=== PATIENT | male | born 1940 | race Caucasian/White ===

== ENCOUNTER 2018-01-10 17:33 | Inpatient (IN) | payer BC, OTHER ==
[~2018-01-10] VITALS: Ht 180.3 cm; Wt 124.1 kg
[~2018-01-10 17:33] MED LIST: ACET-1311 PO; ATOR-22 PO; BISA10SU5 PR; CARV25TA2 PO; CLOP1TAB15 PO; CPR500 PO; DOCU-94 PO; ERGO1CAP35 PO; HPRIS5M SQ; LACT10SO30 PO; LCTS240 PO; LEVO50TA6 PO; MAGNSUS PO; NYST1POW7 TOP; PANT40TA PO; POLY335019 PO; SENN-65 PO; SODIENE PR; TAMS0.4C59 PO; XPNIN INH
[2018-01-10] MEDS ORDERED: OXYCODONE HCL IR 5 MG TAB (IMMEDIATE RELEASE) PO STA (17:57)
--- NOTE | 2018-01-10 19:09 | DIAGNOSTIC IMAGING REPORT ---
CHEST ONE VIEW PORTABLE CLINICAL HISTORY: fall trauma COMPARISON STUDY: 06/24/2015 FINDINGS: Mild stable cardiomegaly. Lungs are clear. Diaphragms are smooth. IMPRESSION: No acute process. The above report was generated using voice recognition software. It may contain grammatical, syntax or spelling errors. Electronically signed by: Pola Lira M.D. 01/10/2018 7:08 PM Dictated Date/Time: 01/10/2018 7:07 PM
--- NOTE | 2018-01-10 19:12 | DIAGNOSTIC IMAGING REPORT ---
L PELVIS/UNILATERAL HIP 2-3VIEWS CLINICAL HISTORY: fall trauma COMPARISON: None. DISCUSSION: Pre-existing right hip arthroplasty. Fracture left femoral neck. Slice appear migration left femoral shaft. No evidence for dislocation or acetabular protrusion. Diminished bone mineralization consistent with osteopenia. There is no evidence for soft tissue swelling. IMPRESSION: Fracture left femoral neck. Osteopenia. Pre-existing total right hip arthroplasty. The above report was generated using voice recognition software. It may contain grammatical, syntax or spelling errors. Electronically signed by: Pola Lira M.D. 01/10/2018 7:10 PM Dictated Date/Time: 01/10/2018 7:08 PM
[2018-01-10] MEDS ORDERED: SOD PHOSPHATE/SOD BIPHOSPHATE ENEMA 132 ML BTL PR PRN ×2 (19:45→20:45)
[2018-01-10] MEDS ORDERED: POLYETHYLENE (MIRALAX) 17 GM PACK PO PRN ×2 (19:45→20:45)
[2018-01-10] MEDS ORDERED: NALOXONE HCL 0.4 MG/1 ML VIAL/CARP IV PRN ×2 (19:45→20:45)
[2018-01-10] MEDS ORDERED: MAGNESIUM HYDROXIDE SUSP 30 ML UDC PO PRN ×2 (19:45→20:45)
[2018-01-10] MEDS ORDERED: BISACODYL 10 MG SUPP PR PRN ×2 (19:45→20:45)
[2018-01-10] MEDS ORDERED: LEValbuterol HFA 15GM INHALER INH PRN (20:00)
[2018-01-10] MEDS ORDERED: HYDROmorphone INJ 0.5 MG/0.5 ML SYR IV PRN ×2 (20:00)
[2018-01-10] MEDS ORDERED: POLY99.0 OPB (20:03)
[2018-01-10] MEDS ORDERED: ASPCH81X PO (20:03)
[2018-01-10] MEDS ORDERED: AMOX500C3 PO (20:03)
--- NOTE | 2018-01-10 20:08 | History and Physical ---
History & Physical Date & Time of Service: Jan 10, 2018 at 20:01 Chief Complaint: Groin Pain Primary Care Physician: Ranjit Baird D.O. History of Present Illness 77 year old from [facility] ([place]) who had a mechanical fall, slipping on the floor, landing on his hip without trauma to the head of loss of consciousness, and found to have Fracture left femoral neck. Patient in the ED is accompanied by his daughter who is a nurse at [facility] who corroborates information from his health history. In the ED patient is verbal and alert and cooperative with physical exam instructions but is not a good historian in regards to his health history. PMH is significant for history of strokes in the past and on dual antiplatelets of aspirin and plavix. Outpatient records with history of atrial fibrillation but patient is not on anticoagulants Past Medical/Surgical History Medical Problems: (1) Anemia (2) Cirrhosis of liver (3) COPD (chronic obstructive pulmonary disease) (4) CVA (cerebral infarction) (5) Dehydration (6) Encephalopathy (7) Fever (8) Fracture of femoral neck, left (9) Hip fracture (10) Hypoxia (11) Leukocytosis (12) Renal failure (13) Right Femoral neck fracture (14) Right Hip fracture (15) Severe sepsis with acute organ dysfunction (16) SIRS (systemic inflammatory response syndrome) (17) UTI (urinary tract infection) Family History Hypertension Kidney disease Social History Smoking Status: Former Smoker Drug Use: none Marital Status: Housing status: assisted living Occupational Status: retired Immunizations History of Influenza Vaccine: Yes Influenza Vaccine Date: Jul 26, 2010 History of Tetanus Vaccine?: Unknown History of Pneumococcal: Yes Pneumococcal Date: Jan 11, 2011 History of Hepatitis B Vaccine: Unknown Allergies Coded Allergies: No Known Allergies (Verified , 01/10/18) Home Medications Scheduled Amoxicillin (Amoxil), 4 CAP PO UD Aspirin (Aspirin Chewable), 81 MG PO DAILY Atorvastatin (Lipitor), 20 MG PO DAILY Carvedilol (Coreg), 25 MG PO BID Clopidogrel (Plavix), 75 MG PO DAILY Duloxetine HCl (Cymbalta), 1 CAP PO DAILY Ergocalciferol (Vitamin D Cap), 50,000 INTER.UNIT PO WK Levothyroxine Sodium (Levothyroxine Sodium), 50 MCG PO DAILY Nystatin (Topical) (Nystatin), 1 APPLN TOP BID Omeprazole (Prilosec), 20 MG PO BID Tamsulosin Hcl (Flomax), 0.4 MG PO HS Triamcinolone Acet (Aristocort 0.1%), 1 APPLN TOP BID Scheduled PRN Acetaminophen (Tylenol), 650 MG PO Q4 PRN for Mild Pain Guaifenesin La (Guaifenesin Er), 600 MG PO Q12H PRN for CONGESTION Hydrocodone/Acetaminophen 5MG/325MG ([place] 5MG/325MG), 1 TABLET PO Q4H PRN for Pain Menthol-Zinc Oxide (Risamine), 1 APPLN TOP BID PRN for TOPICAL CARE Polyvinyl Alcohol (Artificial Tears), 2 DROPS OPB UD PRN for DRYNESS Review of Systems Constitutional: No fever, No chills Eyes: No worsening of vision, No eye pain, No diplopia ENT: No hearing loss, No nasal symptoms, No trouble swallowing Respiratory: No cough, No sputum, No wheezing, No shortness of breath Cardiovascular: No chest pain, No edema, No palpitations Abdomen: No pain, No nausea, No vomiting, No diarrhea, No constipation Musculoskeletal: + problem reported (left hip pain is controlled), No swelling , No calf pain Genitourinary - Male: No dysuria Neurologic: No numbness/tingling Endocrine: No fatigue Hematologic / Lymphatic: No abnormal bleeding/bruising Integumentary: No rash, No itch Physical Exam Vital Signs Date Time Temp Pulse Resp B/P (MAP) Pulse Ox O2 Delivery O2 Flow Rate FiO2 01/10/18 19:39 107 18 140/106 95 Room Air 01/10/18 18:14 84 22 151/121 96 Nasal Cannula 2.0 01/10/18 17:44 97 Nasal Cannula 4.0 01/10/18 17:44 83 01/10/18 17:40 36.4 91 22 173/122 84 Room Air General Appearance: no apparent distress, + obese Head: normocephalic, atraumatic Eyes: normal inspection, EOMI, sclerae normal ENT: normal ENT inspection, hearing grossly normal, pharynx normal Neck: supple, no JVD, trachea midline Respiratory/Chest: chest non-tender, lungs clear, normal breath sounds, no respiratory distress, no accessory muscle use Cardiovascular: regular rate, rhythm, no edema, no JVD, normal peripheral pulses Abdomen/GI: normal bowel sounds, non tender, soft, no organomegaly, no pulsatile mass Back: + pertinent finding (could not perform physical exam of the back as patient had hip pain) Extremities/Musculoskelatal: normal inspection, no calf tenderness, no pedal edema, + pertinent finding (patient could not life eitehr leg due to left hip pain, normal ankle dorsiflexion/extension, toe movements) Neurologic/Psych: alert, normal mood/affect Skin: normal color, warm/dry, no rash Diagnostics Laboratory Results Results Past 24 Hours Test 01/10/18 19:03 Range/Units CXR normal (Mild stable cardiomegaly. Lungs are clear. Diaphragms are smooth. ) Impression Assessment and Plan Osteopenic left femoral neck fracture secondary to mechanical fall -HIP X ray: Pre-existing right hip arthroplasty. Fracture left femoral neck. Slice appear migration left femoral shaft. No evidence for dislocation or acetabular protrusion. Diminished bone mineralization consistent with osteopenia. There is no evidence for soft tissue swelling. -orthopedic service: Dr. Bishop asked to evaluate the patient -anesthesia consult placed -NPO except meds/ice chips/sips after midnight if patient is to go to operating room tomorrow -hold home medication of aspirin and Plavix for now -DVT ppx with SCDs -IV fluids as D5 1/2 NS while patient NPO -Pain control medications -Bowel regimen to prevent narcotic induced ileus -preop antibiotics ordered History of strokes in the past -as per patient's daughter, patient has generalized lower extremity weakness -no slurred speech, no upper motor deficits, lower extremity physical exam limited by left hip pain, ankle flexion/extension and toe movements intact -has been on aspirin and Plavix, will hold prior to surgery -continue Lipitor Last available echocardiogram results in outpatient records from October 2014 ejection Fraction = 56% (bi-plane method of discs). Grade I diastolic dysfunction. No significant valvular pathology. Mild left atrial enlargement History of reported atrial fibrillation -on physical exam, hear rate is rate controlled and appeared to be in regular rhythm -obtain EKGs -continue home medication of carvedilol History of Hypothyroidism -continue home dose Levothyroxine 50 mcg daily -check TSH and T4 History of CKD stage 3; -IV fluids, trend GFR History of Alcoholic cirrhosis of liver -trend LFTs : continue tamsulosin History of Vascular dementia -monitor mental status Obesity PARDEEP: CPAP as tolerated DVT ppx: SCD Full Code daughter [phone] is a nurse at [facility] Resuscitation Status VTE Prophylaxis Will order VTE Prophylaxis: Yes
--- NOTE | 2018-01-10 20:14 | EMERGENCY ROOM VISIT NOTE ---
History Report prepared by Mario: Diana Batres Under the Supervision of: Dr. Willie Dudley D.O. First contact with patient: 17:51 Chief Complaint: GROIN PAIN Stated Complaint: GROIN PAIN History of Present Illness The patient is a 77 year old male who presents to the Emergency Room with complaints of persistent groin pain starting 1 hour ago. The patient resides at [facility]. His daughter received a call today around 1645 informing her that the patient had fallen. He reports left groin pain since the fall. The pain worsens with movement. He denies any head injury or LOC. He denies any abdominal pain, neck pain, or leg pain. He has a history of hip replacement. He has not had any other falls recently. He is on Plavix. Source of History: patient, family Onset: 1 hour ago Position: other (left groin) Symptom Intensity: 6/10 Quality: other (fall, pain) Timing: other (persistent) Modifying Factors (Worsening): movement Associated Symptoms: No LOC, No headache, No neck pain, No abdominal pain Review of Systems See HPI for pertinent positives & negatives. A total of 10 systems reviewed and were otherwise negative. Past Medical & Surgical Medical Problems: (1) Cirrhosis of liver (2) COPD (chronic obstructive pulmonary disease) (3) CVA (cerebral infarction) (4) Fracture of femoral neck, left Family History Hypertension Kidney disease Social History Smoking Status: Former Smoker Alcohol Use: none Drug Use: none Marital Status: Housing Status: fdc Occupation Status: retired Current/Historical Medications Scheduled Amoxicillin (Amoxil), 4 CAP PO UD Aspirin (Aspirin Chewable), 81 MG PO DAILY Atorvastatin (Lipitor), 20 MG PO DAILY Carvedilol (Coreg), 25 MG PO BID Clopidogrel (Plavix), 75 MG PO DAILY Duloxetine HCl (Cymbalta), 1 CAP PO DAILY Ergocalciferol (Vitamin D Cap), 50,000 INTER.UNIT PO WK Levothyroxine Sodium (Levothyroxine Sodium), 50 MCG PO DAILY Nystatin (Topical) (Nystatin), 1 APPLN TOP BID Omeprazole (Prilosec), 20 MG PO BID Tamsulosin Hcl (Flomax), 0.4 MG PO HS Triamcinolone Acet (Aristocort 0.1%), 1 APPLN TOP BID Scheduled PRN Acetaminophen (Tylenol), 650 MG PO Q4 PRN for Mild Pain Guaifenesin La (Guaifenesin Er), 600 MG PO Q12H PRN for CONGESTION Hydrocodone/Acetaminophen 5MG/325MG ([place] 5MG/325MG), 1 TABLET PO Q4H PRN for Pain Menthol-Zinc Oxide (Risamine), 1 APPLN TOP BID PRN for TOPICAL CARE Polyvinyl Alcohol (Artificial Tears), 2 DROPS OPB UD PRN for DRYNESS Allergies Coded Allergies: No Known Allergies (Verified , 01/10/18) Physical Exam Vital Signs Date Time Temp Pulse Resp B/P (MAP) Pulse Ox O2 Delivery O2 Flow Rate FiO2 01/10/18 19:39 107 18 140/106 95 Room Air 01/10/18 18:14 84 22 151/121 96 Nasal Cannula 2.0 01/10/18 17:44 97 Nasal Cannula 4.0 01/10/18 17:44 83 01/10/18 17:40 36.4 91 22 173/122 84 Room Air Physical Exam GENERAL: Patient is awake, alert, and in no acute distress. Patient is resting comfortably and showing no signs of anxiety EYES: The conjunctivae are clear. The pupils are round and reactive. EARS, NOSE, MOUTH AND THROAT: The nose is without any evidence of any deformity. Mucous membranes are moist tongue is midline NECK: The neck is nontender and supple. RESPIRATORY: Diminished breath sounds noted throughout with scattered rhonchi. No tachypnea or conversational dyspnea. CARDIOVASCULAR: Regular rate and rhythm noted there no murmurs rubs or gallops normal S1 normal S2 GASTROINTESTINAL: The abdomen is soft. Bowel sounds are present in all quadrants. Abdomen is nontender BACK: No midline tenderness or or step-off noted range of motion in flexion extension as well as rotation no signs of muscle spasm noted MUSCULOSKELETAL/EXTREMITIES: No significant shortening of the LLE, but patient is having very significant pain with external rotation and palpation in the left groin. No tenderness in either lower extremity from the knee down. SKIN: There is pedal edema bilaterally. There is no obvious evidence of any rash. There are no petechiae, pallor or cyanosis noted. NEUROLOGIC: Patient is awake alert and oriented x3 Medical Decision & Procedures ER Provider Diagnostic Interpretation: X-ray results as stated below per interpretation by me and the radiologist. CHEST ONE VIEW PORTABLE CLINICAL HISTORY: fall trauma COMPARISON STUDY: 06/24/2015 FINDINGS: Mild stable cardiomegaly. Lungs are clear. Diaphragms are smooth. IMPRESSION: No acute process. The above report was generated using voice recognition software. It may contain grammatical, syntax or spelling errors. Electronically signed by: Pola Lira M.D. 01/10/2018 7:08 PM Dictated Date/Time: 01/10/2018 7:07 PM L PELVIS/UNILATERAL HIP 2-3VIEWS CLINICAL HISTORY: fall trauma COMPARISON: None. DISCUSSION: Pre-existing right hip arthroplasty. Fracture left femoral neck. Slice appear migration left femoral shaft. No evidence for dislocation or acetabular protrusion. Diminished bone mineralization consistent with osteopenia. There is no evidence for soft tissue swelling. IMPRESSION: Fracture left femoral neck. Osteopenia. Pre-existing total right hip arthroplasty. The above report was generated using voice recognition software. It may contain grammatical, syntax or spelling errors. Electronically signed by: Pola Lira M.D. 01/10/2018 7:10 PM Dictated Date/Time: 01/10/2018 7:08 PM Laboratory Results Laboratory results per my review. Medications Administered Medications (Trade) Dose Ordered Sig/Duke Route Start Time Stop Time Status Last Admin Dose Admin Oxycodone HCl (Roxicodone Immediate Rel Tab) 5 mg NOW STAT PO 01/10/18 17:57 01/10/18 17:59 DC 01/10/18 17:57 5 MG ECG Per My Interpretation Indication: other (fall) Rate (beats per minute): 115 Rhythm: atrial fibrillation Findings: ST depression (diffuse), other (no PVC, poor R wave progression) Comparison ECG Date: 24-Jun-2015 Change: Atrial fibrillation has replaced sinus rhythm. ED Course 1754: The patient was evaluated in room B7. A complete history and physical examination were performed. 1756: Oxycodone HCl 5 mg PO. 1904: Upon reevaluation, the patient is resting comfortably. I discussed results and treatment plan with him and his daughter. They verbalize agreement and understanding. The patient will be evaluated for further management and care. 1909: I discussed the patient's case with Dr. Muro, [facility] hospitalist. The patient will be evaluated for further management. Medical Decision Prior records reviewed and summarized above. Triage Nursing notes reviewed. Additional history obtained from family. Differential diagnosis: Etiologies such as fracture, dislocation, neurovascular compromise, compartment syndrome, soft tissue injury, as well as others were entertained. The patient is a 77-year-old male who presented to the emergency department for an evaluation of left hip pain. The patient had a fall from a standing position. X-rays revealed a subcapital left hip fracture. Hip order sets were placed. The patient was treated with pain medication in the emergency department. I discussed the patient's laboratory and radiographic studies with him and his daughter. I also [facility] They have agreed to evaluate the patient in the emergency department for further management and disposition. Head Trauma GCS Score: 15 Medication Reconcilliation Current Medication List: was personally reviewed by me Blood Pressure Screening Patient's blood pressure: Elevated blood pressure Blood pressure disposition: Elevated BP felt to be situational Consults Time Called: 1905 Consulting Phys[facility]: 1909 I discussed the patient's case with him. The patient will be evaluated for further management. Impression Primary Impression: Fall Additional Impression: Subcapital fracture of left hip Scribe Attestation The scribe's documentation has been prepared under my direction and personally reviewed by me in its entirety. I confirm that the note above accurately reflects all work, treatment, procedures, and medical decision making performed by me. Departure Information Dispostion Being Evaluated By Hospitalist Referrals No Doctor, Assigned (PCP) Patient Instructions My [facility] Problem Qualifiers Primary Impression: Fall Encounter type: initial encounter Qualified Codes: W19.XXXA - Unspecified fall, initial encounter Additional Impression: Subcapital fracture of left hip Encounter type: initial encounter Fracture type: closed Qualified Codes: S72.012A - Unspecified intracapsular fracture of left femur, initial encounter for closed fracture
[2018-01-10] MEDS ORDERED: GUAI1TAB75 PO (20:16)
[2018-01-10] MEDS ORDERED: PRLSR20 PO (20:16)
[2018-01-10] MEDS ORDERED: HYDR-5688 PO (20:16)
[2018-01-10] MEDS ORDERED: CYM/30 PO (20:16)
[2018-01-10] MEDS ORDERED: MENTOIN12 TOP (20:16)
[2018-01-10] MEDS ORDERED: TRMCR130WC TOP (20:16)
[2018-01-10] MEDS ORDERED: ONDANSETRON INJ 2 MG/ML 2 ML VIAL IV PRN (20:45)
[2018-01-10 21:00] VITALS: BP 171/110; PULSE 116; O2SAT 94; BMI 37.9
[2018-01-10] MEDS ORDERED: DOCUSATE SODIUM/SENNA 50/8.6MG TAB PO SCH (21:00)
--- NOTE | 2018-01-10 22:00 | HISTORY & PHYSICAL EXAMINATION ---
DATE OF ADMISSION: 01/10/2018 CHIEF COMPLAINT: Left hip pain. HISTORY OF PRESENT ILLNESS: A 77-year-old male admitted to the hospital after falling from standing height. He lives in [facility]. He notes that he fell late this afternoon. He has groin pain. He denies any head injury or loss of consciousness. He denies abdominal pain, neck pain or leg pain. He did have a right bipolar prosthesis placed several years ago. He has also had some partial knee replacements. He is chronically on Plavix. The patient is noted to have past history of significant alcohol use and has some issues related to that medically. SOURCE OF HISTORY: The patient and the family. REVIEW OF SYSTEMS: Reveals no chest pain, shortness of breath, fever, chills, nausea, vomiting or headache. He is awake and alert. He recognizes me from past social encounters. PAST MEDICAL AND PAST SURGICAL HISTORY: Remarkable for cirrhosis of the liver; COPD; CVA; femoral neck fracture, right, status post bipolar endoprosthesis; new onset femoral neck fracture, left. FAMILY HISTORY: Remarkable for hypertension and kidney disease. SOCIAL HISTORY: Reveals that he is a former smoker, has quit alcohol use. He is . He resides in [facility]. He is retired. PREADMISSION MEDICATIONS: Include amoxicillin p.r.n. basis, aspirin 81 mg daily, Lipitor 20 mg daily, Coreg 25 mg p.o. b.i.d., Plavix 75 mg daily, Cymbalta 1 capsule daily, vitamin D replacement, levothyroxine 50 mcg daily, Nystatin b.i.d. applied topically, Prilosec 20 mg b.i.d., Flomax 0.4 mg p.o. at bedtime, triamcinolone applied topically, Aristocort 0.1% b.i.d. p.r.n. P.r.n. medications include Tylenol, guaifenesin LA, hydrocodone/acetaminophen 5/325, Risamine, and polyvinyl alcohol artificial tears 2 drops p.r.n. for dryness. ALLERGIES: None. PERTINENT PHYSICAL EXAMINATION: Today reveals no head trauma. Eyes are intact. He can move his arms, neck and head well. He has no pain. He has no abdominal tenderness. Has no tenderness on the right lower extremity. Has a healed incision in the medial. Left has significant pain with movement of the hip. Has some minor swelling of the hip, has no significant shortening, has a well-healed incision medially. Neurovascular check bilaterally within normal limits for baseline. Pulses are trace. Skin is intact. He has some fungal nail changes. Chest x-ray results reveal some chronic changes. X-ray results of his hip and pelvis reveal femoral neck fracture, displaced, will require implant. Labs are pending. ASSESSMENT: Displaced femoral neck fracture, will require implant. Consent obtained in the presence of daughter. Questions at this point in time were answered. They had no other issues. Stated that the request originally was for another surgical group, but that I was operation agent, they stated that having me do the procedure was fine. I will make arrangements to do this MARY LOU tomorrow. He will be n.p.o. after midnight. Ancef 2 grams operation agent. Consent obtained and placed in the chart. Routine skin prep. MTDD
[2018-01-10] MEDS: TAMSULOSIN HCL 0.4 MG CAP PO SCH (22:15)
[2018-01-10] MEDS: DOCUSATE SODIUM/SENNA 50/8.6MG TAB PO SCH (22:15)
[2018-01-10] MEDS ORDERED: NURSING VERBAL MED ORDER ONE (22:15)
[2018-01-10] MEDS: CARVEDILOL 25 MG TAB PO SCH (22:15)
[2018-01-10] MEDS ORDERED: D5W AND 1/2NSS 1,000 ML IV SCH (22:30)
[2018-01-10 22:36] LABS: BASO % 0.1 %; BASO ABS # 0.01 K/uL (0-0.2); EOS % 0.1 %; EOS ABS # 0.02 K/uL (0-0.5); HEMATOCRIT 44.1 % (42-52); HEMOGLOBIN 15.7 g/dL (14.0-18.0); IG# 0.07 K/uL (0.00-0.02); LYMPH % 3.3 %; LYMPH ABS # 0.48 K/uL (1.2-3.4); MEAN CELL VOLUME 78.6 fL (80-100); MEAN PLATELET VOLUME 9.6 fL (7.4-10.4); MONO % 4.7 %; MONO ABS # 0.68 K/uL (0.11-0.59); NEUT % 91.3 %; PLATELET COUNT 147 K/uL (130-400); RED CELL DISTRIBUTION WIDTH CV 14.1 % (11.5-14.5); RED CELL DISTRIBUTION WIDTH SD 39.7 fL (36.4-46.3); WHITE BLOOD COUNT 14.36 K/uL (4.8-10.8)
[2018-01-10 22:39] VITALS: BP 132/94; PULSE 122; TEMP 36.4; O2SAT 96
[2018-01-10 22:44] LABS: PTT PATIENT 28.7 SECONDS (21.0-31.0)
[2018-01-10 22:56] LABS: MEAN CORPUSCULAR HGB CONC 35.6 g/dl (32-36)
[2018-01-10 23:07] LABS: ALBUMIN 3.5 gm/dl (3.4-5.0); ALKALINE PHOSPHATASE 86 U/L (45-117); ALT/SGPT 17 U/L (12-78); AST/SGOT 14 U/L (15-37); BLOOD UREA NITROGEN 18 mg/dl (7-18); CALCIUM 7.9 mg/dl (8.5-10.1); CARBON DIOXIDE 29 mmol/L (21-32); CREATININE 1.44 mg/dl (0.60-1.40); GLUCOSE 143 mg/dl (70-99); POTASSIUM 3.7 mmol/L (3.5-5.1); SODIUM 134 mmol/L (136-145); TOTAL PROTEIN 7.5 gm/dl (6.4-8.2)
[2018-01-10] MEDS ORDERED: METOPROLOL TARTRATE 1 MG/ML VIAL IV STA (23:58)
[2018-01-11] VITALS (15 sets, daily range): BP systolic 99–143; BP diastolic 71–94; PULSE 79–123; TEMP 36.3–36.8; O2SAT 92–96; Ht 180.3 cm; Wt 124.1 kg
[2018-01-11] MEDS ORDERED: METOPROLOL TARTRATE 1 MG/ML VIAL IV STA (01:38)
[2018-01-11] MEDS ORDERED: SODIUM CHLORIDE 0.9% 500ML 500 ML IV ONE (04:30)
--- NOTE | 2018-01-11 05:34 | DIAGNOSTIC IMAGING REPORT ---
VENOUS DOPPLER LWR EXT BILA CLINICAL HISTORY: 77 years-old Male presenting with R/O DVT, fall, left hip pain. TECHNIQUE: Real-time grayscale and color and spectral Doppler ultrasound imaging of the veins of the bilateral lower extremities was performed. Compression and augmentation were also utilized. COMPARISON: 12/24/2010. FINDINGS: Right: Common femoral vein: Patent. Greater saphenous vein: Patent. Deep femoral vein: Patent. Femoral vein: Patent. Popliteal vein: Patent. Calf veins: Limited visualization. Left: Common femoral vein: Patent. Greater saphenous vein: Patent. Deep femoral vein: Patent. Femoral vein: Patent. Popliteal vein: Patent. Calf veins: Limited visualization. Other: None. IMPRESSION: No evidence of deep venous thrombosis. Electronically signed by: Woody Canales M.D. 01/11/2018 5:33 AM Dictated Date/Time: 01/11/2018 5:32 AM
[2018-01-11] MEDS: LEVOTHYROXINE 50 MCG TAB PO SCH (05:48)
[2018-01-11] MEDS ORDERED: LEVOTHYROXINE 50 MCG TAB PO SCH (06:00)
[2018-01-11] MEDS ORDERED: CEFAZOLIN SOD 3000MG/22.5 ML IV PUSH IV SCH (06:00)
[2018-01-11] MEDS ORDERED: VANCOMYCIN 1GM ED/ASU OMNICELL 270 ML IV STA (07:43)
[2018-01-11] MEDS ORDERED: VANCOMYCIN CONSULT ACTIVE PRN (07:45)
--- NOTE | 2018-01-11 07:56 | PROGRESS NOTE ---
DATE: 01/11/2018 The patient is sitting up in bed. Denies chest pain, shortness of breath, fever, chills, nausea, vomiting or headache. Of main note is that he went into atrial fibrillation with a relatively rapid heart rate last night. Despite that he is asymptomatic. Vital signs are stable. Pulse is in the 110-115 range. Laboratory work this morning is pending; however, everything was good yesterday. He has an echo being performed this morning and will need cardiac clearance to allow us to proceed with surgery. The patient was informed that procedure at this point in time is pending clearance of cardiology. I have paged out to Dr. Juan Santos, he will evaluate the patient. CHRISD
[2018-01-11] MEDS: CARVEDILOL 25 MG TAB PO SCH ×2 (08:10→21:25)
[2018-01-11] MEDS: ATORVASTATIN 20 MG TAB PO SCH (08:10)
[2018-01-11] MEDS: PANTOprazole SOD 40 MG TAB PO SCH (08:11)
--- NOTE | 2018-01-11 08:32 | ECHOCARDIOGRAM REPORT ---
*NOTICE TO RECEIVING CONSTITUTION PARTY AGENCY This information is strictly Confidential and protected under [place] law. [place] law prohibits you from making any further disclosure of this information unless further disclosure is expressly permitted by the written consent of the person to whom it pertains or is authorized by law. A general authorization for the release of medical or other information is not sufficient for this purpose. Hospital accepts no responsibility if the information is made available to any other person, INCLUDING THE PATIENT. Interpretation Summary * Name: EBENEZER TOUSSAINT Study Date: 01/11/2018 06:52 AM BP: 131/88 mmHg * Patient Location: C.2T\S\S241\S\1 HR: 112 * : 1940 (M/d/yy) Gender: Male Height: 71 in * Age: 77 yrs Ethnicity: CA Weight: 272 lb * Ordering Physician: Peña Muro * Referring Physician: Peña Muro * Performed By: Kevin Macedo RDCS * * Reason For Study: Accelerated junctional rhythm * BSA: 2.4 m2 * -- Conclusions -- * The left ventricular cavity is small. * There is moderate concentric left ventricular hypertrophy. * No regional wall motion abnormalities noted. * Ejection Fraction = 65-70%. * The study was technically difficult. * The left atrium is moderately dilated. * There is no significant valvular disease Procedure Details * A complete two-dimensional transthoracic echocardiogram was performed (2D, M-mode, Doppler and color flow Doppler). * The study was technically limited. * The study was technically difficult. * There were technical limitations due to patient'spoor positioning * A contrast injection of Definity was performed to improve assessment of LV function. * Contrast was injected into an intravenous site in the right arm. * One vial of Definity ultrasound contrast was diluted in normal saline to a total volume of 10 ml. A total of '2' ml of solution was administered during imaging. * Lot # [id number] of Definity utilized for procedure. * Expiration date 1APR19. * The attending nurse who injected the contrast agent was ARMAND Thomas. Left Ventricle * The left ventricular cavity is small. * There is moderate concentric left ventricular hypertrophy. * Ejection Fraction = 65-70%. * No regional wall motion abnormalities noted. Right Ventricle * The right ventricle is normal in size and function. Atria * The left atrium is moderately dilated. * Right atrial size is normal. * No ASD detected; PFO is not assessed. Mitral Valve * The mitral valve is grossly normal. * There is no mitral valve stenosis. * There is trace mitral regurgitation. Tricuspid Valve * The tricuspid valve is not well visualized, but is grossly normal. * There is no tricuspid stenosis. * There is trace tricuspid regurgitation. Aortic Valve * The aortic valve is trileaflet. * No hemodynamically significant valvular aortic stenosis. * No aortic regurgitation is present. Pulmonic Valve * The pulmonic valve is not well visualized. Great Vessels * The aortic root is normal size. Pericardium/Pleural * There is no pericardial effusion. Great Vessels * Normal inferior vena cava diameter and respiratory variation suggests normal central venous pressure. MMode 2D Measurements and Calculations IVSd 1.2 cm IVSs 1.8 cm LVIDd 4.8 cm LVIDs 3.3 cm LVPWd 1.2 cm LVPWs 1.8 cm IVS/LVPW 0.94 FS 31.9 % EDV(Teich) 108.9 ml ESV(Teich) 43.6 ml EF(Teich) 59.9 % EDV(cubed) 112.4 ml ESV(cubed) 35.4 ml EF(cubed) 68.5 % % IVS thick 53.5 % % LVPW thick 44.6 % LV mass(C)d 217.4 grams LV mass(C)dI 90.4 grams/m\S\2 LV mass(C)s 234.6 grams LV mass(C)sI 97.6 grams/m\S\2 SV(Teich) 65.3 ml SI(Teich) 27.2 ml/m\S\2 SV(cubed) 77.0 ml SI(cubed) 32.0 ml/m\S\2 EPSS 0.61 cm Ao root diam 3.2 cm Ao root area 8.3 cm\S\2 ACS 2.2 cm LA dimension 5.4 cm asc Aorta Diam 3.3 cm LA/Ao 1.7 LVOT diam 2.0 cm LVOT area 3.1 cm\S\2 Doppler Measurements and Calculations MV E max laurent 75.5 cm/sec MV dec time 0.20 sec Ao V2 max 65.1 cm/sec Ao max PG 1.7 mmHg Ao max PG (full) 0.64 mmHg JULIO(V,A) 2.5 cm\S\2 JULIO(V,D) 2.5 cm\S\2 LV V1 max PG 1.1 mmHg LV V1 max 51.4 cm/sec
[2018-01-11 08:48] LABS: BASO % 0.1 %; BASO ABS # 0.02 K/uL (0-0.2); EOS % 1.4 %; EOS ABS # 0.22 K/uL (0-0.5); HEMATOCRIT 41.4 % (42-52); HEMOGLOBIN 14.6 g/dL (14.0-18.0); IG# 0.03 K/uL (0.00-0.02); LYMPH % 5.3 %; LYMPH ABS # 0.81 K/uL (1.2-3.4); MEAN CELL VOLUME 78.3 fL (80-100); MEAN CORPUSCULAR HEMOGLOBIN 27.6 pg (25-34); MEAN CORPUSCULAR HGB CONC 35.3 g/dl (32-36); MEAN PLATELET VOLUME 9.6 fL (7.4-10.4); MONO % 4.9 %; MONO ABS # 0.75 K/uL (0.11-0.59); NEUT % 88.1 %; NEUT ABS # 13.39 K/uL (1.4-6.5); PLATELET COUNT 144 K/uL (130-400); RED CELL DISTRIBUTION WIDTH CV 14.3 % (11.5-14.5); RED CELL DISTRIBUTION WIDTH SD 40.5 fL (36.4-46.3); WHITE BLOOD COUNT 15.22 K/uL (4.8-10.8)
[2018-01-11] MEDS ORDERED: METOPROLOL TARTRATE 1 MG/ML VIAL ONE (09:06)
[2018-01-11] MEDS ORDERED: NURSING VERBAL MED ORDER ONE (09:15)
[2018-01-11] MEDS ORDERED: SODIUM CHLORIDE 0.9% 250ML 250 ML IV SCH (09:15)
--- NOTE | 2018-01-11 09:23 | History & Physical Bridge Note ---
H&P Re-Evaluation Bridge Note: I have examined the patient, reviewed the History & Physical and in the interval since the performance of the History & Physical I have noted the following changes of clinical significance:obtained cardiac clearance from Dr Santos.
[2018-01-11] MEDS ORDERED: BACITRACIN 50000 UNIT VIAL ONE (09:24)
[2018-01-11] MEDS ORDERED: MIDAZOLAM HCL 1 MG/ML 2ML VIAL ONE (09:24)
[2018-01-11] MEDS ORDERED: FENTANYL CITRATE INJ 50 MCG/1 ML 2 ML VIAL ONE ×2 (09:24→10:11)
[2018-01-11 09:28] LABS: CALCIUM 7.8 mg/dl (8.5-10.1); CREATININE 1.59 mg/dl (0.60-1.40); POTASSIUM 3.6 mmol/L (3.5-5.1)
[2018-01-11] MEDS ORDERED: LIDOCAINE HCL 2% 2 ML VIAL (20MG/ML) ONE ×2 (09:28→10:42)
[2018-01-11] MEDS ORDERED: PROPOFOL IV EMULSION 10 MG/ML 20 ML VIAL IV ONE (09:28)
[2018-01-11] MEDS ORDERED: DEXAMETHASONE SOD INJ 4 MG/ML VIAL ONE (09:28)
[2018-01-11] MEDS ORDERED: ONDANSETRON INJ 2 MG/ML 2 ML VIAL ONE (09:28)
[2018-01-11 09:31] LABS: TOTAL PROTEIN 6.2 gm/dl (6.4-8.2)
[2018-01-11] MEDS ORDERED: PHENYLEPHRINE HCL INJ 10 MG/ML VIAL ONE (09:57)
[2018-01-11] MEDS ORDERED: ALBUMIN HUMAN 5% 12.5 GM/250 ML VIAL IV ONE (10:11)
--- NOTE | 2018-01-11 10:17 | CARDIOLOGY CONSULTATION ---
DATE OF CONSULTATION: 01/11/2018 REFERRING PHYSICIAN: Jarek Bishop MD INDICATIONS: Left hip fracture. HISTORY OF PRESENT ILLNESS: The patient is a 77-year-old male whose history is notable for longstanding hypertension with hypertensive heart disease, chronic obstructive lung disease, past TIA or stroke, history of past paroxysmal atrial arrhythmias including atrial fibrillation and atrial tachycardia. The patient not on anticoagulation due to multiple issues in the past including recurrent falls, history of chronic renal insufficiency, obstructive sleep apnea, Epperson esophagus, history of past alcohol-mediated cirrhosis. The patient presents this admission, currently a resident of [place]. Notes he suffered a mechanical fall, slipping and injuring his left hip with x-ray consistent with left femoral neck fracture. The patient noted no syncope or near syncope. Noted no chest pain. Noted no dizziness or lightheadedness. Notes no sense of tachypalpitations. Notes no orthopnea or worsening peripheral edema. He has been taking medications as prescribed, though the patient is unaware of which medications he takes, only a fair historian. He notes no bleeding difficulties. Notes no melena, hematochezia, dysuria or hematuria. Does walk with a walker. He is relatively sedentary at most times. Currently, denies any headache or visual changes. Notes no fevers or chills. Notes no complaints other than pain in the left hip. Anticipate surgery later on this morning. REVIEW OF SYSTEMS: As per HPI and otherwise negative. ALLERGIES: None. MEDICATIONS: Prior to hospitalization were aspirin 81 mg per day, atorvastatin 20 mg p.o. daily, carvedilol 25 mg twice per day, clopidogrel 75 mg p.o. daily, levothyroxine 50 mcg p.o. daily, omeprazole 20 mg twice per day. PAST SURGICAL HISTORY: Notable for remote tonsillectomy, bilateral total knee replacements past knee arthroscopic surgery, prior hip replacement. FAMILY HISTORY: Positive for heart disease. SOCIAL HISTORY: The patient is retired from [employer]. He is a nonsmoker, nondrinker, currently resides at [facility]. He does ambulate with a walker. PHYSICAL EXAMINATION: GENERAL: The patient is currently comfortable without acute complaint. VITAL SIGNS: Heart rate, however, is elevated at 116, blood pressure is 130/82. HEENT: Normocephalic and atraumatic. Nares without discharge. Throat was clear. NECK: Supple without thyromegaly, lymphadenopathy, or JVD. There are no carotid bruits. LUNGS: Clear to auscultation. CARDIOVASCULAR: Regular, tachycardic. ABDOMEN: Soft, nontender. EXTREMITIES: Without cyanosis or clubbing. There is 1+ lower extremity edema. LABORATORY AND DIAGNOSTIC DATA: EKG reveals multifocal atrial tachycardia, rate 122, old Q-waves inferiorly. Echocardiogram this morning demonstrates moderate left ventricular hypertrophy. There is small hyperdynamic LV function and no wall motion abnormality, EF approximately 70% with underfilled left ventricle. There is no significant valvular disease. Left atrium was moderate to severely dilated. White cell count is 15.2, hemoglobin is 14.6. Sodium is 134, potassium is 3.7, chloride is 101, bicarbonate is 29, BUN is 18, creatinine is 1.44. AST and ALT are normal. Troponin is less than 0.015. TSH is 2.3. IMPRESSION: A 77-year-old male who suffered an acute mechanical fall with left hip fracture, referred for preoperative assessment. His underlying history is notable for past paroxysmal atrial arrhythmias, longstanding hypertension, hypertensive heart disease, past TIAs and strokes, not currently on anticoagulation. RECOMMENDATIONS: The patient should proceed to surgery this morning. No acute contraindications or heart rates elevated. We will give 5 mg IV metoprolol now. He has received oral dose of carvedilol this morning. We will anticipate initiating anticoagulation following surgery, given underfilled ventricle 250 mL bolus of saline administered now. Blood pressure supports will be through fluid resuscitation rather than pressors. We will continue to follow the patient and will likely initiate long-term anticoagulation given controlled health setting post-hospital discharge, hip fracture, and paroxysmal atrial arrhythmias. Would use caution with postop analgesia. MTDD
[2018-01-11] MEDS ORDERED: ONDANSETRON INJ 2 MG/ML 2 ML VIAL IV PRN ×2 (10:30→11:45)
[2018-01-11] MEDS ORDERED: PHENYLEPHRINE 100MCG/ML 5ML SYR IV PRN (10:30)
[2018-01-11] MEDS ORDERED: HYDROmorphone INJ 1 MG/ML SYR IV PRN (10:30)
[2018-01-11] MEDS ORDERED: FENTANYL CITRATE INJ 50 MCG/1 ML 2 ML VIAL IV PRN (10:30)
[2018-01-11] MEDS ORDERED: EpHEDrine SULFATE INJ 50 MG/ML AMP IV PRN (10:30)
[2018-01-11] MEDS ORDERED: ATROPINE SULFATE 0.1 MG/ML 5ML SYR IV PRN (10:30)
[2018-01-11] MEDS ORDERED: EpHEDrine SULFATE 50MG/5ML SYR ONE (10:41)
[2018-01-11] MEDS ORDERED: PHENYLEPHRINE 100MCG/ML 5ML SYR ONE (10:41)
--- NOTE | 2018-01-11 11:31 | [facility] Post Operative Brief Note ---
Immediate Operative Summary Operative Date Jan 11, 2018. Pre-Operative Diagnosis Displaced left femoral neck fracture Post-Operative Diagnosis Same Procedure(s) Performed Left Bipolar Hip Arthroplasty, uncemented Surgeon Dr. Jarek Bishop Printing Roller Polisher Surgeon(s) Olaf Bahena, fellow Estimated Blood Loss 100mL Findings Consistent with Post-Op Diagnosis Fluids (cc crystalloids) 1200/250 albumin Specimens A. Left Femoral Head Drains None Anesthesia Type General Complication(s) none Disposition Accompanied Pt To Recover: no Disposition: Recovery Room / PACU
[2018-01-11] MEDS ORDERED: MAGNESIUM HYDROXIDE SUSP 30 ML UDC PO PRN (11:45)
[2018-01-11] MEDS ORDERED: OXYCODONE HCL IR 5 MG TAB (IMMEDIATE RELEASE) PO PRN (11:45)
[2018-01-11] MEDS ORDERED: METOCLOPRAMIDE HCL INJ 5 MG/ML 2 ML VIAL IV PRN (11:45)
[2018-01-11] MEDS ORDERED: TAMSULOSIN HCL 0.4 MG CAP PO PRN (11:45)
[2018-01-11] MEDS ORDERED: BISACODYL 10 MG SUPP PR PRN (11:45)
[2018-01-11] MEDS ORDERED: GUAIFENESIN 600 MG TABCR PO PRN (11:45)
[2018-01-11] MEDS ORDERED: CEFAZOLIN IV 2,000 MG in DEXTROSE 5% 50ML 50 ML IV SCH (11:45)
[2018-01-11] MEDS ORDERED: ALUMINUM/MAGNESIUM/SIMETH (MAALOX MAX) 30 ML UDC PO PRN (11:45)
[2018-01-11] MEDS ORDERED: MoRPHine SULFATE 2 MG/ML CARP IV PRN (11:45)
--- NOTE | 2018-01-11 11:47 | OPERATIVE REPORT ---
DATE OF OPERATION: 01/11/2018 SURGEON: Dr. Jarek Bishop. SHOES HAND SEWER: Dr. Stephen. PREOPERATIVE DIAGNOSIS: Displaced femoral neck fracture, left hip. POSTOPERATIVE DIAGNOSIS: Same. OPERATION PERFORMED: Noncemented left bipolar femoral endoprosthesis. PERIOPERATIVE SITUATION: Medically cleared male with intractable hip pain based on the fracture. He does have osteoporosis. He has multiple comorbidities. He has somewhat of a moderate risk for surgery. Options were discussed with him and his daughter and they both agreed to proceed with surgical treatment. Did require cardiac clearance for some irregular atrial arrhythmia. SUMMARY OF IMPLANTS: Size 10 standard femoral Tri-Lock stem, 28 x 55 bipolar head. Femoral Articul/Kit head +528. ESTIMATED BLOOD LOSS: 100 mL or less. Crystalloid was 1200 of crystalloid and 250 of albumin. DESCRIPTION OF PROCEDURE: The patient appropriately identified, site verified, consent verified, 3 grams of Ancef as being given as well as a gram of vancomycin based on a remote history of having MRSA. He was then placed carefully in the right lateral decubitus position and the left lower extremity prepped and draped in usual routine fashion. A generous incision was made based on size. Sharp dissection carried down to the fascia. This fascia was then incised and retractors placed and care taken to protect the sciatic nerve. He had a large lipoma there, was partially resected. The sciatic nerve was palpated. The retractors placed carefully. The short external rotators were released and preserved the capsule was T'd and preserved. The femoral neck was resected. The femoral head was then removed. Serial broaching was carried up after box car washer, lateralizing rasp were used to find the canal and it was broached up to a 10 with an excellent fit. Trial reduction was then carried out with a +5 or a +1.5 and a +5 gave better leg length. The hip was then dislocated. All trial implants were removed. The wound irrigated with Pulsavac and then the permanent stem head and bipolar seated. The hip reduced and the leg lengths were within millimeters of equality. There was good stability with flexion, internal rotation, adduction of 90 degrees of flexion, 20 degrees of abduction and 30 degrees of internal rotation. The extension was stable. The wound was then irrigated and the capsule closed with 0 Vicryl, the short external rotators with #2 Vicryl and the IT band and the gluteus chelsea fascia closed with the #2 Vicryl as well, the subcutaneous layer with 2-0 Vicryl and stainless steel clips for skin. Appropriate dressing applied. Estimated blood loss was again 100 mL crystalloid as noted above. Femoral head pathology pending. Deep venous thrombosis prophylaxis per medicine. He is already on Plavix for history of TIAs. I attest to the content of the Intraoperative Record and any orders documented therein. Any exception s are noted below.
--- NOTE | 2018-01-11 12:23 | DIAGNOSTIC IMAGING REPORT ---
PELVIS 1 OR 2 VIEW ROUTINE CLINICAL HISTORY: 77 years-old Male presenting with s/p left hip jessi-arthroplasty, AP pelvis only . TECHNIQUE: Single frontal view the pelvis was obtained. COMPARISON: 10/28/2013. FINDINGS: There has been interval total left hip arthroplasty. Redemonstration of right total hip arthroplasty. No hardware complication. Expected skin abdulaziz overlying the left hip. No malalignment. Atherosclerosis noted. Bony pelvis grossly intact. IMPRESSION: Expected postsurgical appearance status post total left hip arthroplasty. Electronically signed by: Woody Canales M.D. 01/11/2018 12:22 PM Dictated Date/Time: 01/11/2018 12:20 PM
--- NOTE | 2018-01-11 12:35 | Anesthesiology Progress Note ---
Anesthesia Post Op Note Date & Time Jan 11, 2018 at 12:35 Vital Signs Pain Intensity: 0 Vital Signs Past 12 Hours Date Time Temp Pulse Resp B/P (MAP) Pulse Ox O2 Delivery O2 Flow Rate FiO2 01/11/18 12:25 37 79 18 106/60 95 Nasal Cannula 4 01/11/18 12:15 79 18 103/58 95 Nasal Cannula 4 01/11/18 12:05 79 14 100/59 99 Nasal Cannula 4 01/11/18 11:55 81 14 95/64 99 Oxymask 15 01/11/18 11:45 79 14 113/58 98 Oxymask 15 01/11/18 11:37 37.2 79 14 100/55 98 Oxymask 15 01/11/18 09:09 89 131/86 01/11/18 08:00 Nasal Cannula 2.0 01/11/18 07:46 36.7 116 19 130/82 (98) 93 Nasal Cannula 2.0 01/11/18 06:15 115 94 Nasal Cannula 2.0 01/11/18 05:37 116 131/88 (102) 94 Nasal Cannula 3.0 01/11/18 04:00 Nasal Cannula 3.0 01/11/18 03:11 36.4 117 18 119/83 (95) 94 Nasal Cannula 3.0 01/11/18 02:29 114 115/72 (86) 01/11/18 02:09 112 119/80 (93) 01/11/18 01:47 115 01/11/18 01:32 115 18 118/80 (93) 93 Nasal Cannula 3.0 01/11/18 00:56 122 01/11/18 00:48 36.4 122 18 96 5.0 01/11/18 00:44 36.4 123 18 139/90 (106) 95 Nasal Cannula 3.0 Notes Mental Status: alert / awake / arousable, participated in evaluation Pt Amnestic to Procedure: Yes Nausea / Vomiting: adequately controlled Pain: adequately controlled Airway Patency, RR, SpO2: stable & adequate BP & HR: stable & adequate Hydration State: stable & adequate Anesthetic Complications: no major complications apparent
--- NOTE | 2018-01-11 12:51 | Progress Note ---
Internal Med Progress Note Date of Service: Jan 11, 2018. Provider Documentation: SUBJECTIVE: The patient was seen and examined to telemetry unit. He was admitted following a mechanical fall and fracture of left hip. He was noted to have irregular heart rhythm and was seen by the environmental science technician this morning. He underwent elective surgery this morning OBJECTIVE: Vital Signs-as noted below Exam: General-little drowsy Eyes-normal ENT-normal Neck-supple Lungs-decreased breath sounds both sides with minimal bibasilar wheezing Heart-irregular, no murmur appreciated Abdomen-benign, nontender, no organomegaly, bowel sounds present Extremities-no edema bilaterally Neuro-alert and awake, drowsy, no focal neuro deficit Lab data as noted below. ASSESSMENT & PLAN: Osteopenic left femoral neck fracture secondary to mechanical fall -HIP X ray: Pre-existing right hip arthroplasty. Fracture left femoral neck. Slice appear migration left femoral shaft. No evidence for dislocation or acetabular protrusion. Diminished bone mineralization consistent with osteopenia. There is no evidence for soft tissue swelling. -Appreciate Ortho input -hold home medication of aspirin and Plavix for now -DVT ppx with SCDs -IV fluids as D5 1/2 NS while patient NPO -Bowel regimen to prevent narcotic induced ileus -preop antibiotics ordered -after discussion and evaluated by the Display And Banner Designer he went for proposed surgery History of strokes in the past -as per patient's daughter, patient has generalized lower extremity weakness -no slurred speech, no upper motor deficits, lower extremity physical exam limited by left hip pain, ankle flexion/extension and toe movements intact -has been on aspirin and Plavix, will hold prior to surgery -continue Lipitor Last available echocardiogram results in outpatient records from October 2014 ejection Fraction = 56% (bi-plane method of discs). Grade I diastolic dysfunction. No significant valvular pathology. Mild left atrial enlargement H/O PAF -tachyarrhythmia noted on Monitor -obtain EKGs-Junctional tachycardia /MAT,Doubt any Atrial Fibrillation -continue home medication of carvedilol -No electrolytes abnormalities -appreciate cardiology input and no contraindication for proposed surgery -Repeat ECHO:: * The left ventricular cavity is small. * There is moderate concentric left ventricular hypertrophy. * No regional wall motion abnormalities noted. * Ejection Fraction = 65-70%. * The study was technically difficult. * The left atrium is moderately dilated. * There is no significant valvular disease History of Hypothyroidism -continue home dose Levothyroxine 50 mcg daily -Normal TSH,Upper limit of T4 and Minimally Low T3 -no need to adjust the dose of Thyroxin History of CKD stage 3; -IV fluids, trend GFR History of Alcoholic cirrhosis of liver -trend LFTs-unremarkable : continue tamsulosin History of Vascular dementia -monitor mental status Obesity PARDEEP: CPAP as tolerated DVT ppx: SCD Will need group home anticoagulation Will decide following surgery Full Code daughter [phone] is a nurse at [employer] Vital Signs: Date Time Temp Pulse Resp B/P (MAP) Pulse Ox O2 Delivery O2 Flow Rate FiO2 01/11/18 12:25 37 79 18 106/60 95 Nasal Cannula 4 01/11/18 12:15 79 18 103/58 95 Nasal Cannula 4 01/11/18 12:05 79 14 100/59 99 Nasal Cannula 4 01/11/18 11:55 81 14 95/64 99 Oxymask 15 01/11/18 11:45 79 14 113/58 98 Oxymask 15 01/11/18 11:37 37.2 79 14 100/55 98 Oxymask 15 01/11/18 09:09 89 131/86 01/11/18 08:00 Nasal Cannula 2.0 01/11/18 07:46 36.7 116 19 130/82 (98) 93 Nasal Cannula 2.0 01/11/18 06:15 115 94 Nasal Cannula 2.0 01/11/18 05:37 116 131/88 (102) 94 Nasal Cannula 3.0 01/11/18 04:00 Nasal Cannula 3.0 01/11/18 03:11 36.4 117 18 119/83 (95) 94 Nasal Cannula 3.0 01/11/18 02:29 114 115/72 (86) 01/11/18 02:09 112 119/80 (93) 01/11/18 01:47 115 01/11/18 01:32 115 18 118/80 (93) 93 Nasal Cannula 3.0 01/11/18 00:56 122 01/11/18 00:48 36.4 122 18 96 5.0 01/11/18 00:44 36.4 123 18 139/90 (106) 95 Nasal Cannula 3.0 01/10/18 22:39 36.4 122 18 132/94 (107) 96 Nasal Cannula 4.0 01/10/18 21:01 36.4 107 18 140/106 95 01/10/18 21:00 94 Nasal Cannula 5.0 01/10/18 21:00 116 18 171/110 (130) 94 Nasal Cannula 5.0 01/10/18 21:00 116 18 171/110 94 Nasal Cannula 5.0 01/10/18 19:39 107 18 140/106 95 Room Air 01/10/18 18:14 84 22 151/121 96 Nasal Cannula 2.0 01/10/18 17:44 97 Nasal Cannula 4.0 01/10/18 17:44 83 01/10/18 17:40 36.4 91 22 173/122 84 Room Air Lab Results: Results Past 24 Hours Test 01/10/18 21:24 01/10/18 21:53 01/10/18 22:23 01/11/18 08:19 Range/Units Urine Color YELLOW Urine Appearance CLEAR CLEAR Urine pH 6.5 4.5-7.5 Urine Specific [place] 1.009 1.000-1.030 Urine Protein NEG NEG Urine Glucose (UA) NEG NEG Urine Ketones NEG NEG Urine Occult Blood TRACE NEG Urine Nitrite NEG NEG Urine Bilirubin NEG NEG Urine Urobilinogen NEG NEG Urine Leukocyte Esterase NEG NEG Urine WBC (Auto) 1-5 0-5 /hpf Urine RBC (Auto) 0-4 0-4 /hpf Urine Hyaline Casts (Auto) 0 0-5 /lpf Urine Epithelial Cells (Auto) 10-20 0-5 /lpf Urine Bacteria (Auto) NEG NEG Thyroxine (T4) 10.9 4.5-10.9 mcg/dl White Blood Count 14.36 15.22 4.8-10.8 K/uL Red Blood Count 5.61 5.29 4.7-6.1 M/uL Hemoglobin 15.7 14.6 14.0-18.0 g/dL Hematocrit 44.1 41.4 42-52 % Mean Corpuscular Volume 78.6 78.3 80-100 fL Mean Corpuscular Hemoglobin 28.0 27.6 25-34 pg Mean Corpuscular Hemoglobin Concent 35.6 35.3 32-36 g/dl Platelet Count 147 144 130-400 K/uL Mean Platelet Volume 9.6 9.6 7.4-10.4 fL Neutrophils (%) (Auto) 91.3 88.1 % Lymphocytes (%) (Auto) 3.3 5.3 % Monocytes (%) (Auto) 4.7 4.9 % Eosinophils (%) (Auto) 0.1 1.4 % Basophils (%) (Auto) 0.1 0.1 % Neutrophils # (Auto) 13.10 13.39 1.4-6.5 K/uL Lymphocytes # (Auto) 0.48 0.81 1.2-3.4 K/uL Monocytes # (Auto) 0.68 0.75 0.11-0.59 K/uL Eosinophils # (Auto) 0.02 0.22 0-0.5 K/uL Basophils # (Auto) 0.01 0.02 0-0.2 K/uL RDW Standard Deviation 39.7 40.5 36.4-46.3 fL RDW Coefficient of Variation 14.1 14.3 11.5-14.5 % Immature Granulocyte % (Auto) 0.5 0.2 % Immature Granulocyte # (Auto) 0.07 0.03 0.00-0.02 K/uL Prothrombin Time 10.9 9.0-12.0 SECONDS Prothromb Time International Ratio 1.0 0.9-1.1 Activated Partial Thromboplast Time 28.7 21.0-31.0 SECONDS Partial Thromboplastin Ratio 1.1 Sodium Level 134 134 136-145 mmol/L Potassium Level 3.7 3.6 3.5-5.1 mmol/L Chloride Level 101 103 98-107 mmol/L Carbon Dioxide Level 29 24 21-32 mmol/L Anion Gap 5.0 7.0 3-11 mmol/L Blood Urea Nitrogen 18 21 7-18 mg/dl Creatinine 1.44 1.59 0.60-1.40 mg/dl Est Creatinine Clear Calc Drug Dose 55.6 49.4 ml/min Estimated GFR () 53.2 47.2 Estimated GFR (Non- 45.9 40.7 BUN/Creatinine Ratio 12.6 13.4 10-20 Random Glucose 143 147 70-99 mg/dl Calcium Level 7.9 7.8 8.5-10.1 mg/dl Total Bilirubin 0.8 0.9 0.2-1 mg/dl Direct Bilirubin 0.2 0-0.2 mg/dl Aspartate Amino Transf (AST/SGOT) 14 12 15-37 U/L Alanine Aminotransferase (ALT/SGPT) 17 14 12-78 U/L Alkaline Phosphatase 86 69 45-117 U/L Troponin I < 0.015 0-0.045 ng/ml Total Protein 7.5 6.2 6.4-8.2 gm/dl Albumin 3.5 3.0 3.4-5.0 gm/dl Thyroid Stimulating Hormone (TSH) 2.390 0.300-4.500 uIu/ml Magnesium Level 1.8 1.8-2.4 mg/dl Globulin 3.2 2.5-4.0 gm/dl Albumin/Globulin Ratio 0.9 0.9-2 Free Triiodothyronine 2.15 2.30-4.20 pg/ml Microbiology Results 01/10/18 MRSA DNA Surveillance Screen - Final, Complete Specimen Negative for MRSA by DNA Probe
[2018-01-11] MEDS ORDERED: MoRPHine SULFATE 4 MG/ML 1 ML CARP\\VIAL IV PRN (13:30)
[2018-01-11] MEDS ORDERED: ARTIFICIAL TEARS OP SOLN OPB PRN (13:30)
[2018-01-11] MEDS: D5W AND 1/2NSS + 20MEQ KCL 1,000 ML IV SCH ×2 (13:31→22:58)
--- NOTE | 2018-01-11 14:20 | PROGRESS NOTE ---
DATE: 01/11/2018 SUBJECTIVE: Postop check status post left bipolar femoral endoprosthesis. At this point, patient is resting comfortably. His pain is well managed. Denies chest pain, shortness of breath, fever, chills, nausea, vomiting or headache. Vital signs are stable. His pulse is well controlled. Neurovascular check femoral sciatic nerve is normal. Postop x-rays look excellent. ASSESSMENT: Overall, doing well status post bipolar left hip femoral endoprosthesis. PLAN: Plan to mobilize per medicine. DVT prophylaxis with aspirin and Plavix. At this point in time, due to high risk of fall natures, do not suggest any warfarin, Eliquis or Pradaxa.
[2018-01-11] MEDS: ACETAMINOPHEN 500 MG TAB PO SCH ×2 (14:47→21:25)
[2018-01-11] MEDS: FERROUS GLUCONATE 324 MG TAB PO SCH (18:05)
[2018-01-11] MEDS: CEFAZOLIN IV 2,000 MG in SYRINGE 0 ML IV SCH (18:05)
[2018-01-11] MEDS: DOCUSATE SODIUM/SENNA 50/8.6MG TAB PO SCH (21:00)
[2018-01-11] MEDS: SENNA 8.6 MG TAB PO SCH (21:25)
[2018-01-11] MEDS: DOCUSATE SODIUM 100 MG CAP PO SCH (21:25)
[2018-01-11] MEDS: TAMSULOSIN HCL 0.4 MG CAP PO SCH (21:26)
[2018-01-12] VITALS (9 sets, daily range): BP systolic 111–167; BP diastolic 71–87; PULSE 72–94; TEMP 36.4–37.3; O2SAT 92–98
[2018-01-12] MEDS: CEFAZOLIN IV 2,000 MG in SYRINGE 0 ML IV SCH ×2 (02:14→10:02)
[2018-01-12] MEDS: LEVOTHYROXINE 50 MCG TAB PO SCH ×2 (05:58→05:59)
[2018-01-12] MEDS: ACETAMINOPHEN 500 MG TAB PO SCH ×3 (06:00→21:09)
[2018-01-12 07:20] LABS: BASO % 0.1 %; BASO ABS # 0.01 K/uL (0-0.2); EOS % 0.4 %; EOS ABS # 0.04 K/uL (0-0.5); HEMOGLOBIN 10.8 g/dL (14.0-18.0); IG# 0.03 K/uL (0.00-0.02); LYMPH % 8.5 %; LYMPH ABS # 0.85 K/uL (1.2-3.4); MEAN CELL VOLUME 78.8 fL (80-100); MEAN CORPUSCULAR HEMOGLOBIN 26.6 pg (25-34); MEAN CORPUSCULAR HGB CONC 33.8 g/dl (32-36); MEAN PLATELET VOLUME 9.5 fL (7.4-10.4); MONO % 7.9 %; MONO ABS # 0.79 K/uL (0.11-0.59); NEUT % 82.8 %; NEUT ABS # 8.33 K/uL (1.4-6.5); PLATELET COUNT 114 K/uL (130-400); RED CELL DISTRIBUTION WIDTH CV 14.6 % (11.5-14.5); WHITE BLOOD COUNT 10.05 K/uL (4.8-10.8)
[2018-01-12 07:26] LABS: INR 1.1 (0.9-1.1)
[2018-01-12] MEDS ORDERED: DEXAMETHASONE INJ 10 MG in SYRINGE 0 ML IV ONE (07:30)
--- NOTE | 2018-01-12 07:39 | PROGRESS NOTE ---
DATE: 01/12/2018 SUBJECTIVE: Postop check status post bipolar implant for left femoral neck fracture. At this point in time, the patient is resting comfortably in bed. He denies any real issues with chest pain, shortness of breath, fever, chills, nausea, vomiting or headache. OBJECTIVE: Vital signs are stable. He is afebrile. Pulse is below 90. The a.m. laboratory work reveals hematocrit stable at 32. White count decreased to 10.05. INR is pending. Electrolytes pending. Wound dressing clean, dry and intact. Drainage scant. ASSESSMENT: Doing well status post bipolar femoral endoprosthesis. PLAN: Needs to be mobilized, needs PT, OT, Social Service consult. Please transfer to orthopedic floor so that appropriate orthopedic measures can be performed. Dressing change will be performed later. Leave drain in place until removed by the surgical team. DVT prophylaxis per medicine. At this point, I would not suggest going any more than aspirin and Plavix.
[2018-01-12 07:46] LABS: CALCIUM 7.7 mg/dl (8.5-10.1); CREATININE 1.8 mg/dl (0.60-1.40)
[2018-01-12] MEDS: CARVEDILOL 25 MG TAB PO SCH ×2 (08:05→21:08)
[2018-01-12] MEDS: DOCUSATE SODIUM 100 MG CAP PO SCH ×2 (08:05→21:07)
[2018-01-12] MEDS: ASPIRIN 81 MG ECTAB PO SCH (08:05)
[2018-01-12] MEDS: MULTIVITAMIN TAB PO SCH (08:06)
[2018-01-12] MEDS: FERROUS GLUCONATE 324 MG TAB PO SCH ×3 (08:07→17:46)
[2018-01-12] MEDS: PANTOprazole SOD 40 MG TAB PO SCH (08:07)
[2018-01-12] MEDS: ATORVASTATIN 20 MG TAB PO SCH (08:07)
[2018-01-12] MEDS: CLOPIDOGREL BISULFATE 75 MG TAB PO SCH (08:27)
[2018-01-12] MEDS: DULOXETINE (CYMBALTA) 30 MG CAP PO SCH (08:28)
[2018-01-12] MEDS: D5W AND 1/2NSS + 20MEQ KCL 1,000 ML IV SCH (08:36)
--- NOTE | 2018-01-12 08:44 | Clinical Documentation Query ---
Dr. [facility] : CLINICAL DOCUMENTATION QUERIES QUERY 1 OF 2 Patient is a 77 year old male admitted s/p fall for operative repair of left hip fracture. Preoperative H&H was 15.7 g/dl and 44.1%. POD #1, repeat values are 10.8 g/dl and 32%. Total EBL to date is 420 ml's with a net I/O positive balance of 1,294 ml's. He is being monitored by serial hematology and I/O including drain outputs. As appropriate, consider documentation as suggested below. Thank you. In your clinical opinion is this patient being managed for: ( + ) Acute blood loss and hemodilutional anemia ( ) Not Agree ( ) Other explanation of clinical findings (Please Explain) ( ) Unable to determine (Please Define) ( ) Need to Discuss The medical record reflects the following clinical findings, treatment, and risk factors. Clinical Indicators: As above Treatment: He is being monitored by serial hematology and I/O including drain outputs Risk Factors: Intravascular losses associated with surgery, trauma of fall, IVF administration QUERY 2 OF 2 Admission BUN and creatinine were 18 mg/dl and 1.44 mg/dl with a documented history of CKD stage 3. POD #1, repeat values are 24 mg/dl and 1.80 mg/dl. He is being treated with IVF and monitored with serial chemistries. As appropriate, consider capture of this clinical diagnosis as suggested below. Thank you. In your clinical opinion is this patient being managed for: ( ) Acute kidney failure ( + ) Not Agree In part due to dehydration ( ) Other explanation of clinical findings (Please Explain) ( ) Unable to determine (Please Define) ( ) Need to Discuss The medical record reflects the following clinical findings, treatment, and risk factors. Clinical Indicators: As above Treatment:He is being treated with IVF and monitored with serial chemistries Risk Factors: Age, acute blood loss, medications Please clarify and document your clinical opinion in the progress notes and discharge summary. Terms such as "probable", "suspected", "likely", "questionable", "possible", or "still to be ruled out" are acceptable. IF IN AGREEMENT, YOU MUST DOCUMENT ABOVE DIAGNOSTIC STATEMENT IN DAILY PROGRESS NOTES AND DISCHARGE SUMMARY. This document is not part of the patient's record. Thank You, Josh Smith, RN [phone]
[2018-01-12] MEDS ORDERED: PANTOprazole SOD 40 MG TAB PO SCH (09:00)
--- NOTE | 2018-01-12 12:32 | Progress Note ---
Progress Note Date of Service Jan 12, 2018. Progress Note Orthopaedic Progress Note SUBJECTIVE: status post bipolar implant for left femoral neck fracture. The patient is sitting in a chair eating lunch, He denies any hip pain at the moment, but does admit to some throat soreness. He denies chest pain, shortness of breath, fever, chills, nausea, vomiting or headache. OBJECTIVE: Vital signs are stable. He is afebrile. Wound dressing clean, dry and intact. Drainage scant. ASSESSMENT: Doing well status post bipolar femoral endoprosthesis 01/11/18 PLAN: - Drain removed - PT, OT, - Social Service consult. - Recommend transfer to orthopedic floor so that appropriate orthopedic measures can be performed. - Dressing change will be performed later. - DVT prophylaxis per medicine. - Recommend nothing more than prior regimen aspirin and Plavix.
--- NOTE | 2018-01-12 13:53 | PROGRESS NOTE ---
DATE: 01/12/2018 CARDIOLOGY CONSULTATION AND FOLLOWUP NOTE The patient seen and examined. Chart, medications, telemetry reviewed. SUBJECTIVE: The patient tolerated the surgical procedure well yesterday. Notes no chest pain or discomfort. He has had no further arrhythmias. Notes no dizziness or lightheadedness. Notes no edema. Pain is well controlled. He is back on usual medications. PHYSICAL EXAMINATION: VITAL SIGNS: Heart rate is 80, blood pressure is 111/79. NECK: Thin. There is no jugular venous distention. There are no carotid bruits. LUNGS: Clear to auscultation. CARDIOVASCULAR: Regular. There is no S3 gallop. ABDOMEN: Soft, nontender. EXTREMITIES: Reveal trace pedal edema only. LABORATORY DATA: White cell count is 10.0, hemoglobin is 10.8. Sodium is 134, potassium is 4.0, chloride is 103, bicarbonate is 24, BUN is 24, creatinine is 1.8. IMPRESSION: A 77-year-old male with history of: 1. Mechanical fall with hip fracture status post surgical repair, tolerated well. 2. Transient atrial tachycardia with response to fluid hydration. 3. History of past atrial arrhythmias, not on anticoagulation due to recurrent fall history. RECOMMENDATIONS: Continue usual cardiac medications including carvedilol 25 mg twice per day, clopidogrel, aspirin and atorvastatin. Increase activities through physical therapy as appropriate. DVT prophylaxis as ordered.
--- NOTE | 2018-01-12 14:05 | Progress Note ---
Internal Med Progress Note Date of Service: Jan 12, 2018. Provider Documentation: SUBJECTIVE: The patient was seen and examined to telemetry unit. He was admitted following a mechanical fall and fracture of left hip. He was noted to have irregular heart rhythm and was seen by the psychometric examiner this morning. He underwent elective surgery this morning 01/11 Feeling better following surgery No more arrhythmia OBJECTIVE: Vital Signs-as noted below Exam: General-AA No distress ,no SOB Eyes-normal ENT-normal Neck-supple Lungs-decreased breath sounds both sides with minimal bibasilar wheezing Heart-irregular, no murmur appreciated Abdomen-benign, nontender, no organomegaly, bowel sounds present Extremities-no edema bilaterally Neuro-alert and awake, drowsy, no focal neuro deficit Lab data as noted below. ASSESSMENT & PLAN: S/P bipolar femoral endoprosthesis 01/11/18 Osteopenic left femoral neck fracture secondary to mechanical fall -HIP X ray: Pre-existing right hip arthroplasty. Fracture left femoral neck. Slice appear migration left femoral shaft. No evidence for dislocation or acetabular protrusion. Diminished bone mineralization consistent with osteopenia. There is no evidence for soft tissue swelling. -Appreciate Ortho input -S/P Surgery as above -will transfer to [facility] -Aspirin and Plavix started as per Ortho -further anticoagulation as per cardiology History of strokes in the past -as per patient's daughter, patient has generalized lower extremity weakness -no slurred speech, no upper motor deficits, lower extremity physical exam limited by left hip pain, ankle flexion/extension and toe movements intact -has been on aspirin and Plavix, will hold prior to surgery -continue Lipitor H/O PAF -tachyarrhythmia noted on Monitor -obtain EKGs-Junctional tachycardia /MAT,Doubt any Atrial Fibrillation -Last available echocardiogram results in outpatient records from October 2014 ejection Fraction = 56% (bi-plane method of discs). Grade I diastolic dysfunction. No significant valvular pathology. Mild left atrial enlargement -continue home medication of carvedilol -No electrolytes abnormalities -appreciate cardiology input and no contraindication for proposed surgery -Repeat ECHO:: * The left ventricular cavity is small. * There is moderate concentric left ventricular hypertrophy. * No regional wall motion abnormalities noted. * Ejection Fraction = 65-70%. * The study was technically difficult. * The left atrium is moderately dilated. * There is no significant valvular disease No more arrhythmia Remains in SR without any symptoms History of Hypothyroidism -continue home dose Levothyroxine 50 mcg daily -Normal TSH,Upper limit of T4 and Minimally Low T3 -no need to adjust the dose of Thyroxin History of CKD stage 3; -IV fluids, trend GFR History of Alcoholic cirrhosis of liver -trend LFTs-unremarkable : continue tamsulosin History of Vascular dementia -monitor mental status Obesity PARDEEP: CPAP as tolerated DVT ppx: SCD Will need group home anticoagulation Will decide following surgery Has been on Aspirin and Plavix for now Full Code daughter [phone] is a nurse at [employer] Vital Signs: Date Time Temp Pulse Resp B/P (MAP) Pulse Ox O2 Delivery O2 Flow Rate FiO2 01/12/18 12:00 Nasal Cannula 2.0 01/12/18 11:35 36.7 82 19 111/79 (90) 95 01/12/18 08:00 Nasal Cannula 2.0 01/12/18 07:42 36.8 84 18 148/71 (96) 95 Nasal Cannula 2.0 01/12/18 04:00 Nasal Cannula 2.0 01/12/18 03:28 36.4 85 20 145/77 (99) 96 Nasal Cannula 2.0 01/12/18 00:08 37.3 94 20 146/75 (98) 93 Nasal Cannula 2.0 01/12/18 00:00 Nasal Cannula 2.0 01/11/18 20:00 Nasal Cannula 2.0 01/11/18 19:49 36.6 92 20 99/71 (80) 92 Nasal Cannula 2.0 01/11/18 16:00 Nasal Cannula 4.0 01/11/18 16:00 36.5 88 20 109/78 (88) 94 Nasal Cannula 3.0 01/11/18 15:27 36.3 84 22 107/76 (86) 94 Nasal Cannula 3.0 01/11/18 14:20 36.8 83 16 143/75 (97) 95 Nasal Cannula Lab Results: Results Past 24 Hours Test 01/12/18 06:41 Range/Units White Blood Count 10.05 4.8-10.8 K/uL Red Blood Count 4.06 4.7-6.1 M/uL Hemoglobin 10.8 14.0-18.0 g/dL Hematocrit 32.0 42-52 % Mean Corpuscular Volume 78.8 80-100 fL Mean Corpuscular Hemoglobin 26.6 25-34 pg Mean Corpuscular Hemoglobin Concent 33.8 32-36 g/dl Platelet Count 114 130-400 K/uL Mean Platelet Volume 9.5 7.4-10.4 fL Neutrophils (%) (Auto) 82.8 % Lymphocytes (%) (Auto) 8.5 % Monocytes (%) (Auto) 7.9 % Eosinophils (%) (Auto) 0.4 % Basophils (%) (Auto) 0.1 % Neutrophils # (Auto) 8.33 1.4-6.5 K/uL Lymphocytes # (Auto) 0.85 1.2-3.4 K/uL Monocytes # (Auto) 0.79 0.11-0.59 K/uL Eosinophils # (Auto) 0.04 0-0.5 K/uL Basophils # (Auto) 0.01 0-0.2 K/uL RDW Standard Deviation 42.0 36.4-46.3 fL RDW Coefficient of Variation 14.6 11.5-14.5 % Immature Granulocyte % (Auto) 0.3 % Immature Granulocyte # (Auto) 0.03 0.00-0.02 K/uL Prothrombin Time 11.4 9.0-12.0 SECONDS Prothromb Time International Ratio 1.1 0.9-1.1 Sodium Level 134 136-145 mmol/L Potassium Level 4.0 3.5-5.1 mmol/L Chloride Level 103 98-107 mmol/L Carbon Dioxide Level 24 21-32 mmol/L Anion Gap 7.0 3-11 mmol/L Blood Urea Nitrogen 24 7-18 mg/dl Creatinine 1.80 0.60-1.40 mg/dl Est Creatinine Clear Calc Drug Dose 44.6 ml/min Estimated GFR () 40.6 Estimated GFR (Non- 35.0 BUN/Creatinine Ratio 13.4 10-20 Random Glucose 157 70-99 mg/dl Calcium Level 7.7 8.5-10.1 mg/dl Troponin I 0.069 0-0.045 ng/ml
--- NOTE | 2018-01-12 16:21 | Progress Note ---
Progress Note Date of Service Jan 12, 2018. Progress Note Afternoon progress report. Patient is doing well. Denies any pain. Vital signs are stable he is afebrile. Continue with posterior pathway mobilize. Will require usp post discharge.
[2018-01-12] MEDS: SENNA 8.6 MG TAB PO SCH (21:06)
[2018-01-12] MEDS: TAMSULOSIN HCL 0.4 MG CAP PO SCH (21:07)
[2018-01-13 01:06] VITALS: BP 167/89; PULSE 72
[2018-01-13] MEDS: LEVOTHYROXINE 50 MCG TAB PO SCH ×2 (05:50)
[2018-01-13] MEDS: ACETAMINOPHEN 500 MG TAB PO SCH ×3 (05:50→20:12)
[2018-01-13 06:04] LABS: HEMATOCRIT 28.9 % (42-52); HEMOGLOBIN 10.3 g/dL (14.0-18.0); MEAN CELL VOLUME 77.1 fL (80-100); MEAN CORPUSCULAR HEMOGLOBIN 27.5 pg (25-34); MEAN CORPUSCULAR HGB CONC 35.6 g/dl (32-36); MEAN PLATELET VOLUME 9.4 fL (7.4-10.4); PLATELET COUNT 128 K/uL (130-400); RED CELL DISTRIBUTION WIDTH CV 14.3 % (11.5-14.5); RED CELL DISTRIBUTION WIDTH SD 40.8 fL (36.4-46.3); WHITE BLOOD COUNT 12.78 K/uL (4.8-10.8)
[2018-01-13 06:58] LABS: CALCIUM 8.1 mg/dl (8.5-10.1); CREATININE 1.44 mg/dl (0.60-1.40); POTASSIUM 4.1 mmol/L (3.5-5.1)
--- NOTE | 2018-01-13 07:18 | PROGRESS NOTE ---
DATE: 01/13/2018 Postop day #2 status post left femoral bipolar endoprosthesis for femoral neck fracture. The patient is sitting up in bed, watching TV, has no issues. Denies chest pain, shortness of breath, fever, chills, nausea, vomiting or headache. Vital signs are stable, he is afebrile. Neurovascular check, femoral sciatic nerve is normal. Wound dressing clean, dry and intact. Laboratory work reveals hematocrit is stable in the 28.9 range. Please discontinue the q. 12-hour H&Hs. His vital signs are stable and he is not tachycardic. ASSESSMENT: Status post left femoral bipolar endoprosthesis, can be discharged back to [facility] when hospitalist decides to discharge him. From my perspective, he will need to follow up in roughly 12-14 days for staple removal.
[2018-01-13 07:29] VITALS: BP 165/84; PULSE 67; TEMP 36.4; O2SAT 93
[2018-01-13] MEDS: DOCUSATE SODIUM 100 MG CAP PO SCH ×2 (08:25→20:13)
[2018-01-13] MEDS: FERROUS GLUCONATE 324 MG TAB PO SCH ×3 (08:25→18:11)
[2018-01-13] MEDS: DULOXETINE (CYMBALTA) 30 MG CAP PO SCH (08:26)
[2018-01-13] MEDS: ASPIRIN 81 MG ECTAB PO SCH (08:26)
[2018-01-13] MEDS: MULTIVITAMIN TAB PO SCH (08:26)
[2018-01-13] MEDS: CARVEDILOL 25 MG TAB PO SCH ×2 (08:26→20:14)
[2018-01-13] MEDS: ATORVASTATIN 20 MG TAB PO SCH (08:26)
[2018-01-13] MEDS: PANTOprazole SOD 40 MG TAB PO SCH (08:27)
[2018-01-13] MEDS: CLOPIDOGREL BISULFATE 75 MG TAB PO SCH (08:27)
--- NOTE | 2018-01-13 08:31 | Consultant Recommendations ---
Polystyrene Bead Molder Recommendations Date of Service Jan 13, 2018. Polystyrene Bead Molder Recommendations WBAT Left lower extremity with the assistance of a walker Ice to left hip as needed to relieve pain and swelling Elevate left lower extremity as needed for swelling. Pillow between legs when in bed and sitting in a chair. Posterior hip precautions. Dressings change to left hip incision daily and as needed. Keep clean, covered and dry until next follow up appointment with Dr. Bishop Allowed for range of motion left knee and ankle Thigh high OSITO stocking daily for DVT prophylaxis. Follow up at [facility] on 01/26/18 at 10:45 a.m. Please call [phone] with any questions, concerns or questions.
--- NOTE | 2018-01-13 08:59 | Orthopedic Progress Note ---
Orthopedic Progress Note Date of Service Jan 13, 2018. Subjective Post OP Day: 2 Reports: feeling well, pain controlled w PO medications, Denies: calf pain Additional Notes: Tolerating regular diet Objective calves soft nontender, N/V intact, hip located, capillary refill less than 2 sec., dressing C/D/I, incision C/D/I, A&O x3, toes mobile bloody drainage on post op dressings. No active bleeding. Incision intact with abdulaziz. No evidence of surrounding hematoma or seroma. Minimal distal edema. Date Time Temp Pulse Resp B/P (MAP) Pulse Ox O2 Delivery O2 Flow Rate FiO2 01/13/18 08:07 Room Air 01/13/18 07:29 36.4 67 16 165/84 (111) 93 Room Air 01/13/18 01:06 72 167/89 (115) 01/12/18 23:40 Room Air 01/12/18 23:30 36.4 72 16 167/78 (107) 92 Room Air 01/12/18 20:59 75 145/87 (106) 01/12/18 20:57 94 Room Air 01/12/18 19:15 Nasal Cannula 2.0 01/12/18 15:30 36.4 90 18 136/87 (103) 98 Nasal Cannula 2.0 01/12/18 15:30 Nasal Cannula 2.0 01/12/18 15:26 36.7 82 19 95 2.0 01/12/18 12:00 Nasal Cannula 2.0 01/12/18 11:35 36.7 82 19 111/79 (90) 95 Laboratory Results 24 Hours: Test 01/13/18 05:44 Hematocrit 28.9 % Hemoglobin 10.3 g/dL Prothromb Time International Ratio 1.0 Prothrombin Time 10.6 SECONDS Assessment & Plan Assessment: POD 2 - Hemiarthroplasty left hip Plan: Posterior hip precautions. Ice/elevate left lower extremity as needed for pain/swelling WBAT LLE with assistance of a walker Allowed for range of motion of left knee and ankle OSITO stockings left leg for DVT prophylaxis. Also on Plavix and ASA Okay from orthopaedic standpoint for discharge when medically stable. Will discuss findings with Dr. Bishop. He has already evaluated the patient this morning. Please call [phone] with any questions or concerns. Discharge Planning [facility] DVT Prophylaxis: TEDs, ASA, other (Plavix)
--- NOTE | 2018-01-13 12:51 | CARDIOLOGY PROGRESS NOTE ---
DATE: 01/13/2018 CARDIOLOGY CONSULTATION FOLLOWUP NOTE The patient was seen and examined. Chart, medications, and laboratory studies were reviewed. SUBJECTIVE: He notes that hip is bothering him when sitting out of bed in chair. Notes otherwise no complaints. Notes no dizziness or lightheadedness. Notes no syncope or near syncope. Notes no edema. OBJECTIVE: VITAL SIGNS: Heart rate is 67 and blood pressure is 165/84. NECK: Thick. There is no distinct jugular venous distention. LUNGS: Clear. CARDIOVASCULAR: Regular with normal S1 and S2. No murmur or rub. ABDOMEN: Soft and nontender. EXTREMITIES: Without cyanosis or clubbing. There is trace right pedal edema. Otherwise intact distal pulses. LABORATORY STUDIES: Sodium is 130, potassium is 4.1, chloride is 99, bicarbonate is 23, BUN is 27, and creatinine is 1.4. Hemoglobin is 10.5 and white cell count is 12.7. IMPRESSION: 1. A 77-year-old male with a history of hypertension, hypertensive heart disease, history of past difficulties with multiple falls and gait instability, status post admission with #1 mechanical fall with subsequent hip fracture and successful surgical repair. 2. Transient atrial tachycardia without recurrence. 3. Hypertension and hypertensive heart disease, currently compensated, though blood pressures have been trending higher. RECOMMENDATIONS: No adjustments made in medical therapy, though may consider addition of PAULA inhibitor post-hospital discharge. We will make arrangements for followup in the next 3-4 weeks' time. The patient anticipates discharge to [place] for further physical therapy. No contraindications to doing so.
[2018-01-13 16:04] VITALS: BP 161/79; PULSE 72; TEMP 36.3; O2SAT 93
--- NOTE | 2018-01-13 19:39 | Progress Note ---
Subjective Date of Service: Jan 13, 2018. Subjective Pt evaluation today including: conversation w/ patient, physical exam, lab review, review of studies, review of inpatient medication list Saw/examined the patient in room 316 L hip pain controlled no other issues to note today Problem List Medical Problems: (1) Fall Status: Acute (2) Subcapital fracture of left hip Status: Acute Review of Systems Constitutional: No fever, No chills Respiratory: No cough, No sputum, No shortness of breath Cardiac: No chest pain Musculoskeletal: + joint pain (controlled with medications) Medications Current Inpatient Medications Medications (Trade) Dose Ordered Sig/Duke Route Start Time Stop Time Status Last Admin Dose Admin Atorvastatin Calcium (Lipitor Tab) 20 mg DAILY PO 01/11/18 09:00 02/10/18 08:59 01/13/18 08:26 20 MG Carvedilol (Coreg Tab) 25 mg BID PO 01/10/18 21:00 02/09/18 20:59 01/13/18 08:26 25 MG Levalbuterol (Xopenex Hfa Inhaler) 2 puffs Q4H PRN INH 01/10/18 20:00 02/09/18 19:59 Pantoprazole Sodium (Protonix Tab) 40 mg DAILY PO 01/11/18 09:00 02/10/18 08:59 01/13/18 08:27 40 MG Tamsulosin HCl (Flomax Cap) 0.4 mg HS PO 01/10/18 21:00 02/09/18 20:59 01/12/18 21:07 0.4 MG Ondansetron HCl (Zofran Inj) 4 mg Q6H PRN IV 01/10/18 20:45 02/09/18 20:44 Naloxone HCl (Narcan Inj) 0.1 mg PRN PRN IV 01/10/18 20:45 02/09/18 20:44 Polyethylene (Miralax Powder Packet) 17 gm DAILY PRN PO 01/10/18 20:45 02/09/18 20:44 Magnesium Hydroxide (Milk Of Magnesia Susp) 30 ml DAILY PRN PO 01/10/18 20:45 02/09/18 20:44 Bisacodyl (Dulcolax Supp) 10 mg DAILY PRN RI 01/10/18 20:45 02/09/18 20:44 Sodium Biphosphate/ Sodium Phosphate (Fleet Enema) 132 ml PRN PRN RI 01/10/18 20:45 01/24/18 20:44 Levothyroxine Sodium (Synthroid Tab) 25 mcg DAILYBB PO 01/11/18 06:00 02/10/18 06:59 01/13/18 05:50 25 MCG Oxycodone HCl (Roxicodone Immediate Rel Tab) 1 TABLET FOR PAIN RATING... Q4H PRN PO 01/11/18 11:45 01/25/18 11:44 Morphine Sulfate (MoRPHine SULFATE INJ) 2 mg Q2HWA PRN IV 01/11/18 11:45 01/25/18 11:44 Acetaminophen (Tylenol Tab) 1,000 mg Q8H PO 01/11/18 14:00 02/10/18 13:59 01/13/18 13:27 1,000 MG Magnesium Hydroxide (Milk Of Magnesia Susp) 30 ml Q6H PRN PO 01/11/18 11:45 02/10/18 11:44 Bisacodyl (Dulcolax Supp) 10 mg DAILY PRN RI 01/11/18 11:45 02/10/18 11:44 Senna (Senokot Tab) 17.2 mg HS PO 01/11/18 21:00 02/10/18 20:59 01/12/18 21:06 17.2 MG Docusate Sodium (coLACE CAP) 100 mg BID PO 01/11/18 21:00 02/10/18 20:59 01/13/18 08:25 100 MG Diphenhydramine HCl (Benadryl Cap) 25 mg Q8H PRN PO 01/11/18 11:45 02/10/18 11:44 Al Hydrox/Mg Hydrox/Simethicone (Maalox Max Susp) 15 ml Q4H PRN PO 01/11/18 11:45 02/10/18 11:44 Multivitamins (Multivitamin Tab) 1 tab QAM PO 01/12/18 09:00 02/11/18 08:59 01/13/18 08:26 1 TAB Ondansetron HCl (Zofran Inj) 4 mg Q6H PRN IV 01/11/18 11:45 02/10/18 11:44 Metoclopramide HCl (Reglan Inj) 10 mg Q6H PRN IV 01/11/18 11:45 02/10/18 11:44 Ferrous Gluconate (Ferrous Gluconate Tab) 324 mg TIDM PO 01/11/18 16:45 02/10/18 16:44 01/13/18 18:11 324 MG Tamsulosin HCl (Flomax Cap) 0.4 mg QAM PRN PO 01/11/18 11:45 02/10/18 11:44 Aspirin (Ecotrin Tab) 81 mg QAM PO 01/12/18 09:00 02/11/18 08:59 01/13/18 08:26 81 MG Clopidogrel Bisulfate (plAVix TAB) 75 mg DAILY PO 01/12/18 09:00 02/11/18 08:59 01/13/18 08:27 75 MG Duloxetine HCl (Cymbalta Cap) 30 mg DAILY PO 01/12/18 09:00 02/11/18 08:59 01/13/18 08:26 30 MG Guaifenesin (Mucinex Contr Rel Tab) 600 mg Q12H PRN PO 01/11/18 11:45 02/10/18 11:44 Artificial Tears (Artificial Tears) 2 drops UD PRN OPB 01/11/18 13:30 02/10/18 13:29 Levothyroxine Sodium (Synthroid Tab) 50 mcg DAILYBB PO 01/12/18 06:00 02/11/18 05:59 01/13/18 05:50 50 MCG Morphine Sulfate (MoRPHine SULFATE INJ) 4 mg Q2HWA PRN IV 01/11/18 13:30 01/25/18 13:29 Objective Vital Signs Date Time Temp Pulse Resp B/P (MAP) Pulse Ox O2 Delivery O2 Flow Rate FiO2 01/13/18 16:04 36.3 72 16 161/79 (106) 93 Room Air 01/13/18 08:07 Room Air 01/13/18 07:29 36.4 67 16 165/84 (111) 93 Room Air 01/13/18 01:06 72 167/89 (115) 01/12/18 23:40 Room Air 01/12/18 23:30 36.4 72 16 167/78 (107) 92 Room Air 01/12/18 20:59 75 145/87 (106) 01/12/18 20:57 94 Room Air 01/12/18 19:15 Nasal Cannula 2.0 Physical Exam General Appearance: no apparent distress, + obese Respiratory/Chest: lungs clear, normal breath sounds, no respiratory distress, no accessory muscle use Cardiovascular: regular rate, rhythm, no edema, no murmur Extremities: normal range of motion, non-tender, normal inspection, no pedal edema Laboratory Results Last 24 Hours Test 01/13/18 05:44 White Blood Count 12.78 K/uL Red Blood Count 3.75 M/uL Hemoglobin 10.3 g/dL Hematocrit 28.9 % Mean Corpuscular Volume 77.1 fL Mean Corpuscular Hemoglobin 27.5 pg Mean Corpuscular Hemoglobin Concent 35.6 g/dl RDW Standard Deviation 40.8 fL RDW Coefficient of Variation 14.3 % Platelet Count 128 K/uL Mean Platelet Volume 9.4 fL Prothrombin Time 10.6 SECONDS Prothromb Time International Ratio 1.0 Sodium Level 130 mmol/L Potassium Level 4.1 mmol/L Chloride Level 99 mmol/L Carbon Dioxide Level 23 mmol/L Anion Gap 8.0 mmol/L Blood Urea Nitrogen 27 mg/dl Creatinine 1.44 mg/dl Est Creatinine Clear Calc Drug Dose 55.8 ml/min Estimated GFR () 53.2 Estimated GFR (Non- 45.9 BUN/Creatinine Ratio 18.7 Random Glucose 139 mg/dl Calcium Level 8.1 mg/dl Magnesium Level 1.8 mg/dl Assessment and Plan This is a 77 year old male with a PMH of vascular dementia, multiple falls and previous CVAs, obstructive sleep apnea, hx. of alcoholic liver cirrhosis, paroxysmal A. fib presented with a fall and L hip fracture L Femoral Neck Fracture secondary to Fall - possibly mechanical fall - s/p repair, POD #2 - doing well, weightbearing as tolerated as per ortho - plan to d/c to rehab in AM (01/14) - continue aspirin + Plavix for DVT prophylaxis Hx. of paroxysmal A. fib? Transient Atrial Tachycardia - appreciate cardiology input - continue b-kailee - may need PAULA-I on discharge - outpatient cardiology follow-up Hx. of CVA - has had issues with ambulation from previous CVA - continue aspirin and Plavix - continue Lipitor Hypothyroidism - continue Synthroid CKD stage 3 - creat at baseline PARDEEP - nocturnal CPAP DVT ppx - ASA + Plavix FULL CODE
[2018-01-13] MEDS: TAMSULOSIN HCL 0.4 MG CAP PO SCH (20:13)
[2018-01-13] MEDS: SENNA 8.6 MG TAB PO SCH (20:13)
[2018-01-13 23:19] VITALS: BP 186/90; PULSE 70; TEMP 36.4; O2SAT 93
[2018-01-14 00:20] VITALS: BP 131/81; PULSE 76
[2018-01-14] MEDS: ACETAMINOPHEN 500 MG TAB PO SCH ×2 (05:19→13:42)
[2018-01-14] MEDS: LEVOTHYROXINE 50 MCG TAB PO SCH (05:19)
[2018-01-14 06:08] LABS: HEMATOCRIT 26.7 % (42-52); HEMOGLOBIN 9.5 g/dL (14.0-18.0); MEAN CELL VOLUME 76.9 fL (80-100); MEAN CORPUSCULAR HEMOGLOBIN 27.4 pg (25-34); MEAN CORPUSCULAR HGB CONC 35.6 g/dl (32-36); MEAN PLATELET VOLUME 9.5 fL (7.4-10.4); PLATELET COUNT 135 K/uL (130-400); RED CELL DISTRIBUTION WIDTH CV 14.4 % (11.5-14.5)
[2018-01-14 06:41] LABS: CALCIUM 7.9 mg/dl (8.5-10.1); CREATININE 1.45 mg/dl (0.60-1.40); POTASSIUM 3.6 mmol/L (3.5-5.1)
--- NOTE | 2018-01-14 06:45 | PROGRESS NOTE ---
DATE: 01/14/2018 SUBJECTIVE: Status post left bipolar femoral endoprosthesis for subcapital hip fracture. The patient is sitting up in bed comfortable. Denies any chest pain, shortness of breath, fever, chills, nausea, vomiting or headache. OBJECTIVE: Vital signs are stable. He is afebrile. Wound dressing clean, dry and intact. Neurovascular check femoral sciatic nerve is good. Hip motion is supple and pain free. The a.m. laboratory work is pending. ASSESSMENT: Doing well. DISCHARGE PLANS: Per social media marketing analyst and medicine. Can be discharged from an orthopedic perspective at any point.
[2018-01-14 07:46] VITALS: BP 148/78; PULSE 68; TEMP 36.6; O2SAT 92
--- NOTE | 2018-01-14 08:34 | Orthopedic Progress Note ---
Orthopedic Progress Note Date of Service Jan 14, 2018. Subjective Post OP Day: 3 Reports: feeling well, pain controlled w PO medications, Denies: complaints, chest pain, SOB, nausea / vomiting, light headedness, calf pain Objective calves soft nontender, N/V intact, capillary refill less than 2 sec., incision C /D/I, A&O x3, toes mobile Dressing changed, small amount of serous drainage from distal incision and drain sites. No active drainage. Sycamore retained, incision intact. No evidence of hematoma or seroma left hip. Tolerates gentle ROM left hip and knee. Distal pulses 1+ Date Time Temp Pulse Resp B/P (MAP) Pulse Ox O2 Delivery O2 Flow Rate FiO2 01/14/18 07:46 36.6 68 18 148/78 (101) 92 Room Air 01/14/18 07:45 Room Air 01/14/18 00:20 76 131/81 (98) 01/13/18 23:19 36.4 70 16 186/90 (122) 93 Room Air 01/13/18 20:00 Room Air 01/13/18 16:04 36.3 72 16 161/79 (106) 93 Room Air Laboratory Results 24 Hours: Test 01/14/18 05:49 Hematocrit 26.7 % Hemoglobin 9.5 g/dL Assessment & Plan Assessment: POD 3 - Hemiarthroplasty left hip Plan: Posterior hip precautions. Ice/elevate left lower extremity as needed for pain/swelling WBAT LLE with assistance of a walker Allowed for range of motion of left knee and ankle OSITO stockings left leg for DVT prophylaxis. Also on Plavix and ASA Okay from orthopaedic standpoint for discharge when medically stable. Will discuss findings with Dr. Bishop. He has already evaluated the patient this morning. Please call [phone] with any questions or concerns. Discharge Planning Discharge Planning: correction facility DVT Prophylaxis: TEDs, ASA, other (Plavix)
[2018-01-14] MEDS: DOCUSATE SODIUM 100 MG CAP PO SCH (08:41)
[2018-01-14] MEDS: CLOPIDOGREL BISULFATE 75 MG TAB PO SCH (08:41)
[2018-01-14] MEDS: ATORVASTATIN 20 MG TAB PO SCH (08:41)
[2018-01-14] MEDS: CARVEDILOL 25 MG TAB PO SCH (08:42)
[2018-01-14] MEDS: PANTOprazole SOD 40 MG TAB PO SCH (08:42)
[2018-01-14] MEDS: MULTIVITAMIN TAB PO SCH (08:42)
[2018-01-14] MEDS: DULOXETINE (CYMBALTA) 30 MG CAP PO SCH (08:42)
[2018-01-14] MEDS: FERROUS GLUCONATE 324 MG TAB PO SCH ×2 (08:43→12:43)
[2018-01-14] MEDS: ASPIRIN 81 MG ECTAB PO SCH (08:43)
[2018-01-14 09:01] VITALS: O2SAT 92
[2018-01-14 12:05] VITALS: BP 156/84; PULSE 72; TEMP 36.4; O2SAT 97
[2018-01-14 12:27] VITALS: BP 156/84; PULSE 72; TEMP 36.4; O2SAT 97
--- NOTE | 2018-01-14 13:47 | Progress Note ---
Subjective Date of Service: Jan 14, 2018. Subjective Pt evaluation today including: conversation w/ patient, physical exam, lab review, review of studies, review of inpatient medication list Saw/examined the patient in room 316 No problems/issues to note today hip pain improved Problem List Medical Problems: (1) Fall Status: Acute (2) Subcapital fracture of left hip Status: Acute Review of Systems Constitutional: No fever, No chills Respiratory: No cough, No sputum, No shortness of breath Cardiac: No chest pain Musculoskeletal: No joint pain Medications Current Inpatient Medications Medications (Trade) Dose Ordered Sig/Duke Route Start Time Stop Time Status Last Admin Dose Admin Atorvastatin Calcium (Lipitor Tab) 20 mg DAILY PO 01/11/18 09:00 02/10/18 08:59 01/14/18 08:41 20 MG Carvedilol (Coreg Tab) 25 mg BID PO 01/10/18 21:00 02/09/18 20:59 01/14/18 08:42 25 MG Levalbuterol (Xopenex Hfa Inhaler) 2 puffs Q4H PRN INH 01/10/18 20:00 02/09/18 19:59 Pantoprazole Sodium (Protonix Tab) 40 mg DAILY PO 01/11/18 09:00 02/10/18 08:59 01/14/18 08:42 40 MG Tamsulosin HCl (Flomax Cap) 0.4 mg HS PO 01/10/18 21:00 02/09/18 20:59 01/13/18 20:13 0.4 MG Ondansetron HCl (Zofran Inj) 4 mg Q6H PRN IV 01/10/18 20:45 02/09/18 20:44 Naloxone HCl (Narcan Inj) 0.1 mg PRN PRN IV 01/10/18 20:45 02/09/18 20:44 Polyethylene (Miralax Powder Packet) 17 gm DAILY PRN PO 01/10/18 20:45 02/09/18 20:44 Magnesium Hydroxide (Milk Of Magnesia Susp) 30 ml DAILY PRN PO 01/10/18 20:45 02/09/18 20:44 Bisacodyl (Dulcolax Supp) 10 mg DAILY PRN W[place] 01/10/18 20:45 02/09/18 20:44 Sodium Biphosphate/ Sodium Phosphate (Fleet Enema) 132 ml PRN PRN W[place] 01/10/18 20:45 01/24/18 20:44 Oxycodone HCl (Roxicodone Immediate Rel Tab) 1 TABLET FOR PAIN RATING... Q4H PRN PO 01/11/18 11:45 01/25/18 11:44 Morphine Sulfate (MoRPHine SULFATE INJ) 2 mg Q2HWA PRN IV 01/11/18 11:45 01/25/18 11:44 Acetaminophen (Tylenol Tab) 1,000 mg Q8H PO 01/11/18 14:00 02/10/18 13:59 01/14/18 05:19 1,000 MG Magnesium Hydroxide (Milk Of Magnesia Susp) 30 ml Q6H PRN PO 01/11/18 11:45 02/10/18 11:44 Bisacodyl (Dulcolax Supp) 10 mg DAILY PRN W[place] 01/11/18 11:45 02/10/18 11:44 Senna (Senokot Tab) 17.2 mg HS PO 01/11/18 21:00 02/10/18 20:59 01/12/18 21:06 17.2 MG Docusate Sodium (coLACE CAP) 100 mg BID PO 01/11/18 21:00 02/10/18 20:59 01/13/18 08:25 100 MG Diphenhydramine HCl (Benadryl Cap) 25 mg Q8H PRN PO 01/11/18 11:45 02/10/18 11:44 Al Hydrox/Mg Hydrox/Simethicone (Maalox Max Susp) 15 ml Q4H PRN PO 01/11/18 11:45 02/10/18 11:44 Multivitamins (Multivitamin Tab) 1 tab QAM PO 01/12/18 09:00 02/11/18 08:59 01/14/18 08:42 1 TAB Ondansetron HCl (Zofran Inj) 4 mg Q6H PRN IV 01/11/18 11:45 02/10/18 11:44 Metoclopramide HCl (Reglan Inj) 10 mg Q6H PRN IV 01/11/18 11:45 02/10/18 11:44 Ferrous Gluconate (Ferrous Gluconate Tab) 324 mg TIDM PO 01/11/18 16:45 02/10/18 16:44 01/14/18 12:43 324 MG Tamsulosin HCl (Flomax Cap) 0.4 mg QAM PRN PO 01/11/18 11:45 02/10/18 11:44 Aspirin (Ecotrin Tab) 81 mg QAM PO 01/12/18 09:00 02/11/18 08:59 01/14/18 08:43 81 MG Clopidogrel Bisulfate (plAVix TAB) 75 mg DAILY PO 01/12/18 09:00 02/11/18 08:59 01/14/18 08:41 75 MG Duloxetine HCl (Cymbalta Cap) 30 mg DAILY PO 01/12/18 09:00 02/11/18 08:59 01/14/18 08:42 30 MG Guaifenesin (Mucinex Contr Rel Tab) 600 mg Q12H PRN PO 01/11/18 11:45 02/10/18 11:44 Artificial Tears (Artificial Tears) 2 drops UD PRN OPB 01/11/18 13:30 02/10/18 13:29 Levothyroxine Sodium (Synthroid Tab) 50 mcg DAILYBB PO 01/12/18 06:00 02/11/18 05:59 01/14/18 05:19 50 MCG Morphine Sulfate (MoRPHine SULFATE INJ) 4 mg Q2HWA PRN IV 01/11/18 13:30 01/25/18 13:29 Objective Vital Signs Date Time Temp Pulse Resp B/P (MAP) Pulse Ox O2 Delivery O2 Flow Rate FiO2 01/14/18 12:27 36.4 72 18 97 Room Air 01/14/18 12:05 36.4 72 18 156/84 (108) 97 Room Air 01/14/18 09:01 92 Room Air 01/14/18 07:46 36.6 68 18 148/78 (101) 92 Room Air 01/14/18 07:45 Room Air 01/14/18 00:20 76 131/81 (98) 01/13/18 23:19 36.4 70 16 186/90 (122) 93 Room Air 01/13/18 20:00 Room Air 01/13/18 16:04 36.3 72 16 161/79 (106) 93 Room Air Physical Exam General Appearance: no apparent distress Respiratory/Chest: lungs clear, normal breath sounds, no respiratory distress, no accessory muscle use Cardiovascular: regular rate, rhythm, no edema, no murmur Laboratory Results Last 24 Hours Test 01/14/18 05:49 White Blood Count 9.40 K/uL Red Blood Count 3.47 M/uL Hemoglobin 9.5 g/dL Hematocrit 26.7 % Mean Corpuscular Volume 76.9 fL Mean Corpuscular Hemoglobin 27.4 pg Mean Corpuscular Hemoglobin Concent 35.6 g/dl RDW Standard Deviation 41.0 fL RDW Coefficient of Variation 14.4 % Platelet Count 135 K/uL Mean Platelet Volume 9.5 fL Sodium Level 131 mmol/L Potassium Level 3.6 mmol/L Chloride Level 100 mmol/L Carbon Dioxide Level 24 mmol/L Anion Gap 7.0 mmol/L Blood Urea Nitrogen 32 mg/dl Creatinine 1.45 mg/dl Est Creatinine Clear Calc Drug Dose 55.4 ml/min Estimated GFR () 52.7 Estimated GFR (Non- 45.5 BUN/Creatinine Ratio 22.1 Random Glucose 121 mg/dl Calcium Level 7.9 mg/dl Assessment and Plan This is a 77 year old male with a PMH of vascular dementia, multiple falls and previous CVAs, obstructive sleep apnea, hx. of alcoholic liver cirrhosis, paroxysmal A. fib presented with a fall and L hip fracture L Femoral Neck Fracture secondary to Fall 3/ - patient is doing well, no problems/issues, pain controlled - weight bearing as tolerated - POD #3 - acute expected blood loss anemia - plan to d/c home 3 - possibly mechanical fall - s/p repair, POD #2 - doing well, weightbearing as tolerated as per ortho - plan to d/c to rehab in AM (3) - continue aspirin + Plavix for DVT prophylaxis Hx. of paroxysmal A. fib? Transient Atrial Tachycardia - appreciate cardiology input - continue b-kailee - may need PAULA-I on discharge - outpatient cardiology follow-up Hx. of CVA - has had issues with ambulation from previous CVA - continue aspirin and Plavix - continue Lipitor Hypothyroidism - continue Synthroid CKD stage 3 - creat at baseline PARDEEP - nocturnal CPAP DVT ppx - ASA + Plavix FULL CODE
[2018-01-14] MEDS ORDERED: FRRG PO (13:49)
[2018-01-14] MEDS ORDERED: CLC100 PO (13:49)
--- NOTE | 2018-01-14 13:52 | Discharge Instructions ---
Discharge Instructions Date of Service Jan 14, 2018. Admission Reason for Admission: Fracture Of Femoral Neck, Left Discharge Discharge Diagnosis / Problem: L Femoral Fracture Discharge Goals Goal(s): Decrease discomfort, Improve function, Diagnostic testing, Therapeutic intervention Activity Recommendations Activity Limitations: resume your previous activity . Instructions / Follow-Up Instructions / Follow-Up WBAT Left lower extremity with the assistance of a walker Ice to left hip as needed to relieve pain and swelling Elevate left lower extremity as needed for swelling. Pillow between legs when in bed and sitting in a chair. Posterior hip precautions. Dressings change to left hip incision daily and as needed. Keep clean, covered and dry until next follow up appointment with Dr. Bishop Allowed for range of motion left knee and ankle Thigh high OSITO stocking daily for DVT prophylaxis. Follow up at [facility] on 01/26/18 at 10:45 a.m. Please call [phone] with any questions, concerns or questions. Current Hospital Diet Patient's current hospital diet: Regular Diet Discharge Diet Recommended Diet: Regular Diet Procedures Procedures Performed: Left Bipolar Hip Arthroplasty, uncemented Pending Studies Studies pending at discharge: no Medical Emergencies . Who to Call and When: Medical Emergencies: If at any time you feel your situation is an emergency, please call 911 immediately. . Non-Emergent Contact Non-Emergency issues call your: Primary Care Provider . . "Provider Documentation" section prepared by Yu Ponce. . Mail Service Coordinator Recommendations Mail Service Coordinator Recommendations: WBAT Left lower extremity with the assistance of a walker Ice to left hip as needed to relieve pain and swelling Elevate left lower extremity as needed for swelling. Pillow between legs when in bed and sitting in a chair. Posterior hip precautions. Dressings change to left hip incision daily and as needed. Keep clean, covered and dry until next follow up appointment with Dr. Bishop Allowed for range of motion left knee and ankle Thigh high OSITO stocking daily for DVT prophylaxis. Follow up at [facility] on 01/26/18 at 10:45 a.m. Please call [phone] with any questions, concerns or questions.
--- NOTE | 2018-01-14 13:54 | Discharge Summary ---
Discharge Summary Date of Service Jan 14, 2018. Discharge Summary Admission Date: Jan 10, 2018 at 19:40 Discharge Date: Jan 14, 2018 Discharge Disposition: [facility] facility Principal Diagnosis: Mechanical Fall L Femoral Fracture Transient Atrial Tachycardia Hypertensive Heart Disease Hypertension Medication Reconciliation New Medications: Docusate Sodium (Docusate Sodium) 100 Mg Cap 100 MG PO BID for 30 Days, #60 CAP Ferrous Gluconate (Ferrous Gluconate) 324 Mg Tab 324 MG PO TIDM for 30 Days, #90 TAB Continued Medications: Acetaminophen (Tylenol) 325 Mg Tab 650 MG PO Q4 PRN for Mild Pain NOT TO EXCEED 3GM/24HR Amoxicillin (Amoxil) 500 Mg Cap 4 CAP PO UD for 10 Days, CAP GIVE ONE HOUR PRIOR TO DENTAL EXAM Aspirin (Aspirin Chewable) 81 Mg Chew 81 MG PO DAILY Atorvastatin (Lipitor) 20 Mg Tab 20 MG PO DAILY Carvedilol (Coreg) 25 Mg Tab 25 MG PO BID Clopidogrel (Plavix) 75 Mg Tab 75 MG PO DAILY, 0 Refills Duloxetine HCl (Cymbalta) 30 Mg Cap 1 CAP PO DAILY for 30 Days, #30 CAP 5 Refills Ergocalciferol (Vitamin D Cap) 50,000 Interunit Cap 06317 INTER.UNIT PO WK TUESDAYS Guaifenesin La (Guaifenesin Er) 600 Mg Tabcr 600 MG PO Q12H PRN for CONGESTION, TAB GIVE WITH PLENTY OF WATER Hydrocodone/Acetaminophen 5MG/325MG (Walker 5MG/325MG) Tab 1 TABLET PO Q4H PRN for Pain, TAB PRN PAIN Levothyroxine Sodium (Levothyroxine Sodium) 50 Mcg Tab 50 MCG PO DAILY, 3 Refills Menthol-Zinc Oxide (Risamine) 1 Oin Oin 1 APPLN TOP BID PRN for TOPICAL CARE Nystatin (Topical) (Nystatin) 1 Pow Pow 1 APPLN TOP BID TO GROIN Omeprazole (Prilosec) 20 Mg Capcr 20 MG PO BID, CAP Polyvinyl Alcohol (Artificial Tears) 1.4 % Leah 2 DROPS OPB UD PRN for DRYNESS Tamsulosin Hcl (Flomax) 0.4 Mg Cap 0.4 MG PO HS Triamcinolone Acet (Aristocort 0.1%) 90 Appln/30 Gm Cr 1 APPLN TOP BID Admission Information HPI (per Admitting provider): 77 year old from [facility]) who had a mechanical fall, slipping on the floor, landing on his hip without trauma to the head of loss of consciousness, and found to have Fracture left femoral neck. Patient in the ED is accompanied by his daughter who is a nurse at [facility] [employer] who corroborates information from his health history. In the ED patient is verbal and alert and cooperative with physical exam instructions but is not a good historian in regards to his health history. PMH is significant for history of strokes in the past and on dual antiplatelets of aspirin and plavix. Outpatient records with history of atrial fibrillation but patient is not on anticoagulants Physical Exam (per Admitting): General Appearance: no apparent distress, + obese Head: normocephalic, atraumatic Eyes: normal inspection, EOMI, sclerae normal ENT: normal ENT inspection, hearing grossly normal, pharynx normal Neck: supple, no JVD, trachea midline Respiratory/Chest: chest non-tender, lungs clear, normal breath sounds, no respiratory distress, no accessory muscle use Cardiovascular: regular rate, rhythm, no edema, no JVD, normal peripheral pulses Abdomen/GI: normal bowel sounds, non tender, soft, no organomegaly, no pulsatile mass Back: + pertinent finding (could not perform physical exam of the back as patient had hip pain) Extremities/Musculoskelatal: normal inspection, no calf tenderness, no pedal edema, + pertinent finding (patient could not life eitehr leg due to left hip pain, normal ankle dorsiflexion/extension, toe movements) Neurologic/Psych: alert, normal mood/affect Skin: normal color, warm/dry, no rash Hospital Course This is a 77 year old male with a PMH of vascular dementia, multiple falls and previous CVAs, obstructive sleep apnea, hx. of alcoholic liver cirrhosis, paroxysmal A. fib presented with a fall and L hip fracture L Femoral Neck Fracture secondary to Fall 01/14 - patient is doing well, no problems/issues, pain controlled - weight bearing as tolerated - POD #3 - acute expected blood loss anemia - plan to d/c home 3 - possibly mechanical fall - s/p repair, POD #2 - doing well, weightbearing as tolerated as per ortho - plan to d/c to rehab in AM (01/14) - continue aspirin + Plavix for DVT prophylaxis Hx. of paroxysmal A. fib? Transient Atrial Tachycardia - appreciate cardiology input - continue b-kailee - may need PAULA-I on discharge - outpatient cardiology follow-up Hx. of CVA - has had issues with ambulation from previous CVA - continue aspirin and Plavix - continue Lipitor Hypothyroidism - continue Synthroid CKD stage 3 - creat at baseline PARDEEP - nocturnal CPAP DVT ppx - ASA + Plavix FULL CODE Total time spent on discharge = 40 minutes This includes examination of the patient, discharge planning, medication reconciliation, and communication with other providers. Discharge Instructions WBAT Left lower extremity with the assistance of a walker Ice to left hip as needed to relieve pain and swelling Elevate left lower extremity as needed for swelling. Pillow between legs when in bed and sitting in a chair. Posterior hip precautions. Dressings change to left hip incision daily and as needed. Keep clean, covered and dry until next follow up appointment with Dr. Bishop Allowed for range of motion left knee and ankle Thigh high OSITO stocking daily for DVT prophylaxis. Follow up at [facility] on 01/26/18 at 10:45 a.m. Please call [phone] with any questions, concerns or questions.
[2018-01-14] MEDS ORDERED: HYDR-5688 PO (14:26)
== END 2018-01-14 15:23 | DRG 470 ==
LOC: EDBD 17:33 → C.EDB 17:34 → C.3E 19:40 → ENRESERV 19:52 → C.2T 01-11 01:05 → ENRESERV 01-12 15:02 → C.3E 01-12 15:30
PROVIDERS: ADMIT Hospitalist; ATTEND Family Medicine
PROC: 0SRB0JA Replacement of Left Hip Joint with Synthetic Substitute, Uncemented, Open Approach (ICD-10-PCS; principal; 2018-01-11 10:00)
DX: S72.002A Fracture of unspecified part of neck of left femur, initial encounter for closed fracture (principal); I47.1 Supraventricular tachycardia; D62 Acute posthemorrhagic anemia; M81.0 Age-related osteoporosis without current pathological fracture; I48.0 Paroxysmal atrial fibrillation; J44.9 Chronic obstructive pulmonary disease, unspecified; E03.9 Hypothyroidism, unspecified; N18.3 Chronic kidney disease, stage 3 (moderate); K70.30 Alcoholic cirrhosis of liver without ascites; G47.33 Obstructive sleep apnea (adult) (pediatric); I13.10 Hypertensive heart and chronic kidney disease without heart failure, with stage 1 through stage 4 chronic kidney disease, or unspecified chronic kidney disease; F01.50 Vascular dementia, unspecified severity, without behavioral disturbance, psychotic disturbance, mood disturbance, and anxiety; E66.9 Obesity, unspecified; Z79.899 Other long term (current) drug therapy; Z79.02 Long term (current) use of antithrombotics/antiplatelets; Z79.82 Long term (current) use of aspirin; Z96.641 Presence of right artificial hip joint; Z86.73 Personal history of transient ischemic attack (TIA), and cerebral infarction without residual deficits; Z91.81 History of falling; Z68.38 Body mass index [BMI] 38.0-38.9, adult; Z87.891 Personal history of nicotine dependence; Z82.49 Family history of ischemic heart disease and other diseases of the circulatory system; W01.0XXA Fall on same level from slipping, tripping and stumbling without subsequent striking against object, initial encounter; Y92.129 Unspecified place in nursing home as the place of occurrence of the external cause; Y99.8 Other external cause status

== ENCOUNTER → 2018-03-10 | Outpatient (CLI) | payer BC, OTHER ==
[~2018-03-10] MED LIST changes: +AMOX500C3 PO; +ASPCH81X PO; -BISA10SU5 PR; +CLC100 PO; -CPR500 PO; +CYM/30 PO; -DOCU-94 PO; +FRRG PO; +GUAI1TAB75 PO; -HPRIS5M SQ; +HYDR-5688 PO; -LACT10SO30 PO; -LCTS240 PO; -MAGNSUS PO; +MENTOIN12 TOP; -PANT40TA PO; -POLY335019 PO; +POLY99.0 OPB; +PRLSR20 PO; -SENN-65 PO; -SODIENE PR; +TRMCR130WC TOP; -XPNIN INH
== END | disposition home or self-care (01) ==
LOC: C.RDSM 14:58
PROVIDERS: ATTEND Physical Medicine & Rehabilitation Sports Medicine
DX: S72.012D Unspecified intracapsular fracture of left femur, subsequent encounter for closed fracture with routine healing (principal); X58.XXXD Exposure to other specified factors, subsequent encounter

== ENCOUNTER 2024-05-20 00:47 | Inpatient (IN) ==
--- NOTE | 2024-05-20 01:55 | CT Scan Report ---
Exam(s): CT HEAD Without Contrast EXAM: CT Head Without Intravenous Contrast CLINICAL HISTORY: trauma. TECHNIQUE: Axial computed tomography images of the head/brain without intravenous contrast. CTDI is 38.99 mGy and DLP is 624.41 mGy-cm. Automated exposure control was utilized for the study. A dose lowering technique was utilized adhering to the principles of ALARA. COMPARISON: CT head without contrast dated 03/20/2021 FINDINGS: Brain: Underlying parenchymal involutional changes with prominence of the cerebral sulci and sylvian fissures. Periventricular deep white matter hypodense changes noted. No hemorrhage. Ventricles: Asymmetric intraventricular hemorrhage is noted involving the right temporal horn. No definite intraparenchymal hemorrhagic changes noted. No significant mass effect. No midline shift or ventriculomegaly. Bones/joints: No skull fracture. Soft tissues: Mild superficial scalp contusive changes overlie the right high frontal region. No radiopaque foreign body. No subcutaneous emphysema. Vasculature: Atherosclerotic calcification involving the cavernous and supraclinoid internal carotid arteries. Minimal atherosclerotic calcification involving the distal vertebral arteries. Sinuses: No traumatic effusions involving the paranasal sinuses. Mastoid air cells: Unremarkable as visualized. No mastoid effusion. IMPRESSION: Asymmetric intraventricular hemorrhage is noted involving the right temporal horn. No definite intraparenchymal hemorrhagic changes noted. No significant mass effect or midline shift. Recommend short-term interval follow-up to ensure stability over time. Communications: Call Doctor Intracranial Hemorrhage Electronically signed by: Wilbert Prather MD 05/20/24 01:54 AM
[2024-05-20 01:56] LABS: Albumin Globulin Ratio 1.5 (0.9-2); Bilirubin Direct 0.2 mg/dl (0-0.2); Bilirubin,Total 0.9 mg/dl (0.2-1.0); Calcium 8.3 mg/dl (8.6-10.3); Creatinine Clr Calc Pharmacy 28.6 ml/min; Est GFR (African American) 26.4 ml/min; Est GFR (Non-African American) 22.7 ml/min; Globulin 2.6 gm/dl (2.5-4.0); Potassium 3.9 mmol/L (3.5-5.1); Total Protein 6.6 gm/dl (6.0-8.3)
--- NOTE | 2024-05-20 01:58 | CT Scan Report ---
Exam(s): CT C SPINE EXAM: CT Cervical Spine Without Intravenous Contrast CLINICAL HISTORY: Trauma. TECHNIQUE: Axial computed tomography images of the cervical spine without intravenous contrast. CTDI is 26.76 mGy and DLP is 538.88 mGy-cm. Automated exposure control was utilized for the study. A dose lowering technique was utilized adhering to the principles of ALARA. COMPARISON: No relevant prior studies available. FINDINGS: Vertebrae: The cervical vertebral bodies are intact without acute traumatic injury. Incidental chronic anterior wedging at C5 level. Partial ankylosis of the C3-C4 disc is noted. The pedicles, facet joints, spinous processes and transverse processes are intact. Multilevel bilateral facet hypertrophic arthrosis is chronic in appearance. Discs/spinal canal/neural foramina: Incidental bilateral facet ankylosis noted at C3-C4. Multilevel disc space narrowing with marginal hypertrophic osteophyte changes noted at several levels. No severe osseous central canal stenosis. Soft tissues: Unremarkable. Lung apices: The included lung apices demonstrate no evidence for significant acute traumatic injury. IMPRESSION: No acute osseous traumatic injury or significant abnormal alignment involving the cervical spine. Electronically signed by: Wilbert Prather MD 05/20/24 01:57 AM
[2024-05-20 02:04] LABS: Troponin I High Sensitivity 17.1 pg/ml (0-20)
[2024-05-20] MEDS ORDERED: SODIUM CHLORIDE 0.9% 250 ML IV PRN ×2 (02:09→04:09)
[2024-05-20 02:26] LABS: Adenovirus PCR Not Detected (NotDetected); Bordetella parapertussis PCR Not Detected (NotDetected); Bordetella pertussis PCR Not Detected (NotDetected); Chlamydia pneumoniae PCR Not Detected (NotDetected); Coronavirus 229E PCR Not Detected (NotDetected); Coronavirus CoV-2 (COVID19)PCR Not Detected (NotDetected); Coronavirus HKU1 PCR Not Detected (NotDetected); Coronavirus NL63 PCR Not Detected (NotDetected); Coronavirus OC43PCR Not Detected (NotDetected); Human Metapneumovirus PCR Not Detected (NotDetected); Influenza A PCR Not Detected (NotDetected); Influenza B PCR Not Detected (NotDetected); Mycoplasma pneumoniae PCR Not Detected (NotDetected); Parainfluenza Virus 1 PCR Not Detected (NotDetected); Parainfluenza Virus 2 PCR Not Detected (NotDetected); Parainfluenza Virus 3 PCR Not Detected (NotDetected); Parainfluenza Virus 4 PCR Not Detected (NotDetected); Respiratory Syncytial VirusPCR Not Detected (NotDetected); Rhinovirus/Enterovirus PCR Not Detected (NotDetected)
--- NOTE | 2024-05-20 02:37 | Emergency Department Note ---
Impression & Plan Closed intraventricular hemorrhage, Closed head injury ED Provider Note NAME: EBENEZER TOUSSAINT AGE: 84 SEX: M : 1940 ARRIVES VIA: Ambulance INFORMANT: Patient, ED PROVIDER(S): Ej Tillman MD CHIEF COMPLAINT: Trauma alert, fall HPI: This is a 84-year-old male presenting after a fall. Patient lives at [facility] and was found down after unknown period of time. He was found around 10 PM. There is hematoma right side of his forehead. He notes he is not member falling. 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 Patient has no current complaints. He has baseline dementia and reportedly this is his baseline. ROS: See above HPI for pertinent positives & negatives. A total of 10 systems reviewed and were otherwise negative. PHYSICAL EXAMINATION: General: resting comfortably in no acute distress Head: Normocephalic, right forehead hematoma Eyes: Normal inspection, extraocular muscles intact Ear, nose, throat: Normal external exam Neck: Normal range of motion Respiratory: lungs clear to auscultation bilaterally Cardiovascular: Regular rate/rhythm, no murmur GI: soft, nontender, no guarding or rebound Extremities: nontender, moves all extremities Neuro: Awake, alert, not oriented to person place or time, no focal deficits Skin: Warm, dry, and intact MEDICAL DECISION MAKING: This is a 84-year-old male presenting after a fall. Patient appears to have baseline dementia. Will do CT of the head/C-spine for rule out traumatic injury. Patient is on aspirin and Plavix. He has a DNR with a POLST on file. -Patient is currently febrile, will do up respiratory panel, urinalysis and blood work to help assess for etiology -Upon my independent trepidation, CT imaging does reveal any likely intracranial hemorrhage. -Patient CT imaging was made stat. CT report does confirm this intraventricular hemorrhage in the right temporal horn. Patient is on Plavix and will reverse with platelets at this time. -Discussed goals of care with his daughter who states that they would not want intervention such as neurosurgery for transfer. She states that based on his goals of care, if you were to decline, they want comfort measures -Will admit patient here for continued monitoring and if worsening comfort measures. Discussed care with Dr. Forte for admission Differential diagnosis: Intracranial hemorrhage, C-spine fracture, hip fracture ER treatment provided: See below Diagnostics interpreted by me: ECG: None Cardiac Monitoring: An order was placed for continuous cardiac monitoring. The monitor shows a rate of 69 with sinus rhythm. Laboratory studies: As stated above and show below. Imaging studies: See below. Critical Care Note: I have personally spent 35 minutes of critical care time in the direct management of this patient. This includes bedside care, interpretation of diagnostic studies, and testing, discussion with consultants, patient, and family members, and other required patient management activities. This 35 minutes is in excess of all separately billable procedures. Past Med/Surg History Problem List (Updated 05/20/24 @ 06:49 by Ej Tillman MD) Closed head injury (Acute) Closed intraventricular hemorrhage (Acute) Brain bleed CVA (cerebral infarction) (Chronic) Cirrhosis of liver (Chronic) COPD (chronic obstructive pulmonary disease) (Chronic) Hip fracture (Acute 10/26/13) Hypoxia (Acute 10/26/13) Renal failure (Acute) SIRS (systemic inflammatory response syndrome) (Acute) Dehydration (Acute) Severe sepsis with acute organ dysfunction (Acute) Anemia (Acute) Encephalopathy (Acute) Fever (Acute) Fracture of femoral neck, left Leukocytosis (Acute) UTI (urinary tract infection) (Acute) Medical History Cirrhosis of liver CKD (chronic kidney disease) COPD (chronic obstructive pulmonary disease) CVA (cerebral infarction) Family History Other Family history non-contributory Social History Smoking Status: Never smoker Preferred Language: Sinhala Feels Safe at Home: Yes Allergies Allergies Allergy/AdvReac Type Severity Reaction Status Date / Time No Known Allergies Allergy Unknown Verified 05/20/24 02:23 Home Meds Home Medications Medication Instructions Recorded Confirmed Desit Maximum Strength 1 applic topical DIRECTED PRN 05/20/24 05/20/24 .irritation from inc Desitin Maximum Strength 1 applic topical QS 05/20/24 05/20/24 acetaminophen 325 mg tablet 650 mg PO Q4 PRN Pain 05/20/24 05/20/24 (Tylenol) allopurinol 100 mg tablet 50 mg PO DAILY 05/20/24 05/20/24 aspirin 81 mg chewable tablet 81 mg PO DAILY 05/20/24 05/20/24 atorvastatin 40 mg tablet 40 mg PO QPM 05/20/24 05/20/24 carvedilol 25 mg tablet 25 mg PO BID 05/20/24 05/20/24 clopidogrel 75 mg tablet 75 mg PO QAM 05/20/24 05/20/24 duloxetine 30 mg capsule,delayed 30 mg PO QAM 05/20/24 05/20/24 release ferrous fumarate 325 mg (106 mg 325 mg PO BID 05/20/24 05/20/24 iron) tablet finasteride 5 mg tablet 5 mg PO QAM 05/20/24 05/20/24 folic acid 1 mg tablet 1 mg PO DAILY 05/20/24 05/20/24 levothyroxine 75 mcg tablet 75 mcg PO DAILY 05/20/24 05/20/24 menthol 0.44 %-zinc oxide 20.6 % 1 applic topical DIRECTED PRN 05/20/24 05/20/24 topical ointment (Calmoseptine) .excoriated butt multivitamin 1 tab PO DAILY 05/20/24 05/20/24 nystatin 100,000 unit/gram topical 1 applic topical BID PRN fungal 05/20/24 05/20/24 powder (Nystop) rash/prevention pantoprazole 20 mg tablet,delayed 20 mg PO DAILY 05/20/24 05/20/24 release potassium chloride 20 mEq 20 meq PO DAILY 05/20/24 05/20/24 tablet,extended release(part/cryst) psyllium husk 0.4 gram capsule 0.4 g PO BID 05/20/24 05/20/24 (Reguloid (psyllium husk)) tamsulosin 0.4 mg capsule 0.4 mg PO HS 05/20/24 05/20/24 Results & Data (ED) Vital Signs Vital Signs - 24 hr 05/20/24 00:50 05/20/24 00:58 05/20/24 01:00 Temperature 38.2 C H Temperature Source Oral Pulse Rate 78 81 Pulse Rate [Apical] 76 Pulse Rate from SpO2 Sensor 84 Pulse Rhythm Pulse Rhythm [Apical] Pulse Strength Pulse Strength [Apical] Respiratory Rate 20 20 Respiratory Effort / Characteristics Respiratory Depth Respiratory Pattern Blood Pressure 144/86 H Blood Pressure [Right Arm] 144/86 H Blood Pressure Mean 105 Blood Pressure Mean [Right Arm] 105 Blood Pressure Position Blood Pressure Position [Right Arm] Pulse Oximetry 93 94 Oxygen Delivery Method Room Air Oxygen Flow Rate Sepsis Recent Fever Within 48 Hours Sepsis New/Unexplained Change in Mental Status Sepsis Action Taken by Nursing 05/20/24 01:02 05/20/24 01:03 05/20/24 01:03 Temperature 38.2 C H 38.2 C H Temperature Source Oral Pulse Rate 83 83 Pulse Rate [Apical] Pulse Rate from SpO2 Sensor Pulse Rhythm Regular Pulse Rhythm [Apical] Pulse Strength Normal Pulse Strength [Apical] Respiratory Rate 23 23 Respiratory Effort / Characteristics Non-Labored Spontaneous Respiratory Depth Normal Respiratory Pattern Regular Blood Pressure 144/86 H 144/86 H Blood Pressure [Right Arm] 138/70 Blood Pressure Mean 105 Blood Pressure Mean [Right Arm] 92 Blood Pressure Position Lying Blood Pressure Position [Right Arm] Pulse Oximetry 93 93 Oxygen Delivery Method Room Air Room Air Oxygen Flow Rate 0 Sepsis Recent Fever Within 48 Hours Yes Sepsis New/Unexplained Change in Mental Status No Sepsis Action Taken by Nursing Physician Notified 05/20/24 01:03 05/20/24 01:03 05/20/24 01:45 Temperature 38.2 C H Temperature Source Oral Pulse Rate 71 Pulse Rate [Apical] 83 Pulse Rate from SpO2 Sensor Pulse Rhythm Pulse Rhythm [Apical] Regular Pulse Strength Pulse Strength [Apical] Normal Respiratory Rate 23 19 Respiratory Effort / Characteristics Non-Labored Spontaneous Respiratory Depth Normal Respiratory Pattern Blood Pressure Blood Pressure [Right Arm] 144/86 H Blood Pressure Mean Blood Pressure Mean [Right Arm] 105 Blood Pressure Position Blood Pressure Position [Right Arm] Lying Pulse Oximetry 93 93 Oxygen Delivery Method Room Air Room Air Oxygen Flow Rate 0 Sepsis Recent Fever Within 48 Hours Sepsis New/Unexplained Change in Mental Status Sepsis Action Taken by Nursing 05/20/24 02:12 05/20/24 02:30 05/20/24 03:00 Temperature Temperature Source Pulse Rate 75 77 Pulse Rate [Apical] 76 Pulse Rate from SpO2 Sensor Pulse Rhythm Pulse Rhythm [Apical] Regular Pulse Strength Pulse Strength [Apical] Normal Respiratory Rate 20 19 19 Respiratory Effort / Characteristics Non-Labored Spontaneous Respiratory Depth Normal Respiratory Pattern Regular Blood Pressure Blood Pressure [Right Arm] 154/120 H Blood Pressure Mean Blood Pressure Mean [Right Arm] 131 Blood Pressure Position Blood Pressure Position [Right Arm] Lying Pulse Oximetry 96 Oxygen Delivery Method Room Air Oxygen Flow Rate Sepsis Recent Fever Within 48 Hours Sepsis New/Unexplained Change in Mental Status Sepsis Action Taken by Nursing 05/20/24 03:12 05/20/24 03:15 05/20/24 03:24 Temperature Temperature Source Pulse Rate 70 76 Pulse Rate [Apical] Pulse Rate from SpO2 Sensor Pulse Rhythm Pulse Rhythm [Apical] Pulse Strength Pulse Strength [Apical] Respiratory Rate 19 22 Respiratory Effort / Characteristics Respiratory Depth Respiratory Pattern Blood Pressure 187/116 H Blood Pressure [Right Arm] Blood Pressure Mean 123 Blood Pressure Mean [Right Arm] Blood Pressure Position Blood Pressure Position [Right Arm] Pulse Oximetry Oxygen Delivery Method Oxygen Flow Rate Sepsis Recent Fever Within 48 Hours Sepsis New/Unexplained Change in Mental Status Sepsis Action Taken by Nursing 05/20/24 03:24 05/20/24 03:27 05/20/24 03:38 Temperature Temperature Source Pulse Rate 72 Pulse Rate [Apical] Pulse Rate from SpO2 Sensor Pulse Rhythm Pulse Rhythm [Apical] Pulse Strength Pulse Strength [Apical] Respiratory Rate 24 Respiratory Effort / Characteristics Respiratory Depth Respiratory Pattern Blood Pressure 187/116 H 129/85 Blood Pressure [Right Arm] Blood Pressure Mean 123 108 Blood Pressure Mean [Right Arm] Blood Pressure Position Blood Pressure Position [Right Arm] Pulse Oximetry Oxygen Delivery Method Oxygen Flow Rate Sepsis Recent Fever Within 48 Hours Sepsis New/Unexplained Change in Mental Status Sepsis Action Taken by Nursing 05/20/24 03:45 05/20/24 03:45 Temperature Temperature Source Pulse Rate 67 Pulse Rate [Apical] Pulse Rate from SpO2 Sensor Pulse Rhythm Pulse Rhythm [Apical] Pulse Strength Pulse Strength [Apical] Respiratory Rate 19 Respiratory Effort / Characteristics Respiratory Depth Respiratory Pattern Blood Pressure 129/85 Blood Pressure [Right Arm] Blood Pressure Mean 99 Blood Pressure Mean [Right Arm] Blood Pressure Position Blood Pressure Position [Right Arm] Pulse Oximetry Oxygen Delivery Method Oxygen Flow Rate Sepsis Recent Fever Within 48 Hours Sepsis New/Unexplained Change in Mental Status Sepsis Action Taken by Nursing Laboratory Data 05/20/24 02:46 05/20/24 01:02 Lab Results 05/20/24 05/20/24 05/20/24 Range/Units 01:00 01:02 02:46 WBC 11.27 H (4.8-10.8) K/ul RBC 4.31 L (4.70-6.10) M/uL Hgb 12.6 L (14.0-18.0) g/dl Hct 37.0 L (42.0-52.0) % MCV 85.8 (80.0-100.0) fL MCH 29.2 (25.0-34.0) pg MCHC 34.1 (32.0-36.0) g/dL RDW Std Deviation 43.9 (36.4-46.3) fL RDW Coeff of Patrick 14.1 (11.5-14.5) % Plt Count 150 (130-400) K/uL MPV 10.2 (9.4-12.4) fL Immature Gran % (Auto) 0.4 % Neut % (Auto) 91.6 % Lymph % (Auto) 3.3 % Villalba % (Auto) 4.3 % Eos % (Auto) 0.2 % Baso % (Auto) 0.2 % Neut # (Auto) 10.33 H (1.40-6.50) K/uL Lymph # (Auto) 0.37 L (1.20-3.40) K/uL Vill[place]ba # (Auto) 0.49 (0.11-0.59) K/uL Eos # (Auto) 0.02 (0.00-0.50) K/uL Baso # (Auto) 0.02 (0.00-0.20) K/uL Immature Gran # (Auto) 0.04 (0.01-0.20) K/uL RBC Morphology Unremarkable Sodium 137 (136-145) mmol/L Potassium 3.9 (3.5-5.1) mmol/L Chloride 103 (98-107) mmol/L Carbon Dioxide 24 (21-32) mmol/L Anion Gap 10 (3-11) BUN 47 H (6-23) mg/dl Creatinine 2.47 H (0.6-1.4) mg/dl Est Cr Clr Drug Dosing 28.6 ml/min Est GFR ( Amer) 26.4 ml/min Est GFR (Non-Af Amer) 22.7 ml/min BUN/Creatinine Ratio 19.0 (10-20) Glucose 169 H (70-99(Fasting)) mg/dl Calcium 8.3 L (8.6-10.3) mg/dl Total Bilirubin 0.9 (0.2-1.0) mg/dl Direct Bilirubin 0.2 (0-0.2) mg/dl AST 18 (13-39) U/L ALT 18 (7-52) U/L Alkaline Phosphatase 97 (34-104) U/L Troponin I High Sens 17.1 (0-20) pg/ml Total Protein 6.6 (6.0-8.3) gm/dl Albumin 4.0 (3.4-5.0) gm/dl Globulin 2.6 (2.5-4.0) gm/dl Albumin/Globulin Ratio 1.5 (0.9-2) Lipase 32 (11-82) U/L Urine Color Urine Appearance (Clear) Urine pH (4.5-7.5) Ur Specific [place] (1.000-1.030) Urine Protein (Negative) Urine Glucose (UA) (Negative) Urine Ketones (Negative) Urine Blood (Negative) Urine Nitrite (Negative) Urine Bilirubin (Negative) Urine Urobilinogen (Negative) Ur Leukocyte Esterase (Negative) Urine WBC (Auto) (0-5) /hpf Urine RBC (Auto) (0-2) /hpf U Hyaline Cast (Auto) (0-2) /lpf U Epithel Cells (Auto) (0-2) /hpf Urine Bacteria (Auto) (None Seen) Adenovirus (PCR) Not Detected (NotDetected) B. pertussis DNA (PCR) Not Detected (NotDetected) B.parapertussis DNA PCR Not Detected (NotDetected) C. pneumoniae DNA (PCR) Not Detected (NotDetected) Coronavirus OC43 (PCR) Not Detected (NotDetected) Coronavirus HKU1 (PCR) Not Detected (NotDetected) Coronavirus 229E (PCR) Not Detected (NotDetected) SARS-CoV-2 (PCR) Not Detected (NotDetected) Coronavirus NL63 (PCR) Not Detected (NotDetected) Human Metapneumovir PCR Not Detected (NotDetected) Influenza Type A (PCR) Not Detected (NotDetected) Influenza Type B (PCR) Not Detected (NotDetected) M. pneumoniae (PCR) Not Detected (NotDetected) Parainfluenza 1 (PCR) Not Detected (NotDetected) Parainfluenza 2 (PCR) Not Detected (NotDetected) Parainfluenza 3 (PCR) Not Detected (NotDetected) Parainfluenza 4 (PCR) Not Detected (NotDetected) RSV (PCR) Not Detected (NotDetected) Entero/Rhino (PCR) Not Detected (NotDetected) Blood Type B Positive Antibody Screen NEGATIVE 05/20/24 Range/Units 03:10 WBC (4.8-10.8) K/ul RBC (4.70-6.10) M/uL Hgb (14.0-18.0) g/dl Hct (42.0-52.0) % MCV (80.0-100.0) fL MCH (25.0-34.0) pg MCHC (32.0-36.0) g/dL RDW Std Deviation (36.4-46.3) fL RDW Coeff of Patrick (11.5-14.5) % Plt Count (130-400) K/uL MPV (9.4-12.4) fL Immature Gran % (Auto) % Neut % (Auto) % Lymph % (Auto) % Villalba % (Auto) % Eos % (Auto) % Baso % (Auto) % Neut # (Auto) (1.40-6.50) K/uL Lymph # (Auto) (1.20-3.40) K/uL [place]ba # (Auto) (0.11-0.59) K/uL Eos # (Auto) (0.00-0.50) K/uL Baso # (Auto) (0.00-0.20) K/uL Immature Gran # (Auto) (0.01-0.20) K/uL RBC Morphology Sodium (136-145) mmol/L Potassium (3.5-5.1) mmol/L Chloride (98-107) mmol/L Carbon Dioxide (21-32) mmol/L Anion Gap (3-11) BUN (6-23) mg/dl Creatinine (0.6-1.4) mg/dl Est Cr Clr Drug Dosing ml/min Est GFR ( Amer) ml/min Est GFR (Non-Af Amer) ml/min BUN/Creatinine Ratio (10-20) Glucose (70-99(Fasting)) mg/dl Calcium (8.6-10.3) mg/dl Total Bilirubin (0.2-1.0) mg/dl Direct Bilirubin (0-0.2) mg/dl AST (13-39) U/L ALT (7-52) U/L Alkaline Phosphatase (34-104) U/L Troponin I High Sens (0-20) pg/ml Total Protein (6.0-8.3) gm/dl Albumin (3.4-5.0) gm/dl Globulin (2.5-4.0) gm/dl Albumin/Globulin Ratio (0.9-2) Lipase (11-82) U/L Urine Color Yellow Urine Appearance Clear (Clear) Urine pH 5.0 (4.5-7.5) Ur Specific [place] 1.010 (1.000-1.030) Urine Protein Negative (Negative) Urine Glucose (UA) Negative (Negative) Urine Ketones Negative (Negative) Urine Blood Negative (Negative) Urine Nitrite Negative (Negative) Urine Bilirubin Negative (Negative) Urine Urobilinogen Negative (Negative) Ur Leukocyte Esterase 1+ H (Negative) Urine WBC (Auto) 6-10 H (0-5) /hpf Urine RBC (Auto) 0-2 (0-2) /hpf U Hyaline Cast (Auto) 0-2 (0-2) /lpf U Epithel Cells (Auto) 0-2 (0-2) /hpf Urine Bacteria (Auto) 4+ H (None Seen) Adenovirus (PCR) (NotDetected) B. pertussis DNA (PCR) (NotDetected) B.parapertussis DNA PCR (NotDetected) C. pneumoniae DNA (PCR) (NotDetected) Coronavirus OC43 (PCR) (NotDetected) Coronavirus HKU1 (PCR) (NotDetected) Coronavirus 229E (PCR) (NotDetected) SARS-CoV-2 (PCR) (NotDetected) Coronavirus NL63 (PCR) (NotDetected) Human Metapneumovir PCR (NotDetected) Influenza Type A (PCR) (NotDetected) Influenza Type B (PCR) (NotDetected) M. pneumoniae (PCR) (NotDetected) Parainfluenza 1 (PCR) (NotDetected) Parainfluenza 2 (PCR) (NotDetected) Parainfluenza 3 (PCR) (NotDetected) Parainfluenza 4 (PCR) (NotDetected) RSV (PCR) (NotDetected) Entero/Rhino (PCR) (NotDetected) Blood Type Antibody Screen Administered Medications Discontinued Medications Ceftriaxone Sodium (Rocephin) 2,000 mg in 50 mls @ 100 mls/hr IV NOW STA Stop: 05/20/24 03:08 Last Infusion: 05/20/24 03:40 Dose: Infused Documented By: Admin: 05/20/24 03:00 Dose: 100 mls/hr Documented By: TIMO Doxycycline Hyclate 100 mg/ (Dextrose) 100 mls @ 50 mls/hr IV NOW STA Stop: 05/20/24 04:38 Last Admin: 05/20/24 04:03 Dose: 50 mls/hr Documented By: DONNA Imaging Data Radiologist's Impression: Cervical Spine CT 05/20/24 00:50 Exam(s): CT C SPINE EXAM: CT Cervical Spine Without Intravenous Contrast CLINICAL HISTORY: Trauma. TECHNIQUE: Axial computed tomography images of the cervical spine without intravenous contrast. CTDI is 26.76 mGy and DLP is 538.88 mGy-cm. Automated exposure control was utilized for the study. A dose lowering technique was utilized adhering to the principles of ALARA. COMPARISON: No relevant prior studies available. FINDINGS: Vertebrae: The cervical vertebral bodies are intact without acute traumatic injury. Incidental chronic anterior wedging at C5 level. Partial ankylosis of the C3-C4 disc is noted. The pedicles, facet joints, spinous processes and transverse processes are intact. Multilevel bilateral facet hypertrophic arthrosis is chronic in appearance. Discs/spinal canal/neural foramina: Incidental bilateral facet ankylosis noted at C3-C4. Multilevel disc space narrowing with marginal hypertrophic osteophyte changes noted at several levels. No severe osseous central canal stenosis. Soft tissues: Unremarkable. Lung apices: The included lung apices demonstrate no evidence for significant acute traumatic injury. IMPRESSION: No acute osseous traumatic injury or significant abnormal alignment involving the cervical spine. Electronically signed by: Wilbert Prather MD 05/20/24 01:[address] 05/20/24 00:50 CR Exam(s): CT HEAD Without Contrast EXAM: CT Head Without Intravenous Contrast CLINICAL HISTORY: trauma. TECHNIQUE: Axial computed tomography images of the head/brain without intravenous contrast. CTDI is 38.99 mGy and DLP is 624.41 mGy-cm. Automated exposure control was utilized for the study. A dose lowering technique was utilized adhering to the principles of ALARA. COMPARISON: CT head without contrast dated 03/20/2021 FINDINGS: Brain: Underlying parenchymal involutional changes with prominence of the cerebral sulci and sylvian fissures. Periventricular deep white matter hypodense changes noted. No hemorrhage. Ventricles: Asymmetric intraventricular hemorrhage is noted involving the right temporal horn. No definite intraparenchymal hemorrhagic changes noted. No significant mass effect. No midline shift or ventriculomegaly. Bones/joints: No skull fracture. Soft tissues: Mild superficial scalp contusive changes overlie the right high frontal region. No radiopaque foreign body. No subcutaneous emphysema. Vasculature: Atherosclerotic calcification involving the cavernous and supraclinoid internal carotid arteries. Minimal atherosclerotic calcification involving the distal vertebral arteries. Sinuses: No traumatic effusions involving the paranasal sinuses. Mastoid air cells: Unremarkable as visualized. No mastoid effusion. IMPRESSION: Asymmetric intraventricular hemorrhage is noted involving the right temporal horn. No definite intraparenchymal hemorrhagic changes noted. No significant mass effect or midline shift. Recommend short-term interval follow-up to ensure stability over time. Communications: Call Doctor Intracranial Hemorrhage Electronically signed by: Wilbert Prather MD 05/20/24 01:54 AM Discharge Plan Visit Data Chief Complaint: Trauma Stated Complaint: TRAUMA ED Provider: Ej Tillman Discharge Problem: Closed intraventricular hemorrhage, Closed head injury Patient Disposition: Admitted As Inpatient Discharge Instructions Interventions: ED Discharge Assessment Last Done: 05/20/24 06:42
[2024-05-20 02:56] LABS: Hemoglobin 12.6 g/dl (14.0-18.0); Mean Corpuscular Hemoglobin 29.2 pg (25.0-34.0); Mean Corpuscular Hgb Conc 34.1 g/dL (32.0-36.0); Mean Corpuscular Volume 85.8 fL (80.0-100.0); Mean Platelet Volume 10.2 fL (9.4-12.4); Platelet Count 150 K/uL (130-400); RDW Coefficient of Variation 14.1 % (11.5-14.5); RDW Standard Deviation 43.9 fL (36.4-46.3); Red Blood Count 4.31 M/uL (4.70-6.10); White Blood Count 11.27 K/ul (4.8-10.8)
[2024-05-20] MEDS: cefTRIAXone SODIUM 2,000 MG/50 ML BAG IV STA (03:00)
[2024-05-20 03:17] LABS: Basophils % (auto) 0.2 %; Eosinophils % (auto) 0.2 %; Lymphocytes % (auto) 3.3 %; Monocytes % (auto) 4.3 %; Neutrophils % (auto) 91.6 %
[2024-05-20 03:18] LABS: Basophils # (auto) 0.02 K/uL (0.00-0.20); Eosinophils # (auto) 0.02 K/uL (0.00-0.50); Immature Granulocytes # (auto) 0.04 K/uL (0.01-0.20); Immature Granulocytes % (auto) 0.4 %; Lymphocytes # (auto) 0.37 K/uL (1.20-3.40); Monocytes # (auto) 0.49 K/uL (0.11-0.59); Neutrophils # (auto) 10.33 K/uL (1.40-6.50); RBC Morphology Unremarkable
[2024-05-20 03:23] LABS: Appearance Urine Clear (Clear); Bacteria Urine Automated 4+ (None Seen); Bilirubin Urine Negative (Negative); Blood Urine Negative (Negative); Cast Urine Automated 0-2 /lpf (0-2); Color Urine Yellow; Epithelial Cell Urine Auto 0-2 /hpf (0-2); Glucose Urine UA Negative (Negative); Ketones Urine Negative (Negative); Leukocyte Esterase Urine 1+ (Negative); Nitrite Urine Negative (Negative); Protein Urine Negative (Negative); RBC Urine Automated 0-2 /hpf (0-2); Urobilinogen Urine Negative (Negative)
--- NOTE | 2024-05-20 03:56 | History & Physical Report ---
Date of Service May 20, 2024 Assessment & Plan (1) Brain bleed: Plan: 84-year-old male who is a resident of the [facility] with past medical history significant for hyperlipidemia, hypothyroidism, obstructive sleep apnea nontolerant of CPAP, CVA, atrial fibrillation, abdominal aortic aneurysm, paroxysmal atrial tachycardia, chronic systolic CHF, hypertension, CKD stage III, BPH, Epperson's esophagus, alcoholic cirrhosis of liver, history of acute emphysematous cholecystitis, obesity, gout, osteoporosis, vascular dementia,, depression, presents with fall and found to have brain bleed. Daughter was called as patient fell around 10 PM. Seems no loss of consciousness. Nursing staff did not saw him falling down. As per daughter recently fell 5 times. Patient ambulates with walker. But his balance is not great as per daughter. As per daughter patient is alert and oriented to name only. Patient can recognize the daughter. Currently on pured diet. Chronically incontinent of stool and bladder movements. No recent fevers. No nausea or vomiting. Patient can tell his name. Does not know where he is. Denies any chest pain or headache. Says he has no pain. Patient had temp spike in the ER. Could not get any history from the patient. Patient was in the hospice in the past but was taken out as per daughter. Patient is DNR/DNI. Daughter does not want him to transfer for brain bleed. If brain bleed gets worse she wants the patient to be comfortable. Daughter works in our hospital on the third floor. S/p fall Bruise on the right forehead CT head showing" Asymmetric intraventricular hemorrhage is noted involving the right temporal horn. No definite intraparenchymal hemorrhagic changes noted. No significant mass effect or midline shift" Daughter does not want to be transferred to tertiary care. If bleeding worsens daughter wants to make him comfortable Patient is DNR/DNI Supportive care Will hold aspirin and Plavix gentle fluids Follow repeat CT head in a.m. Neurology consult in a.m. Monitor in med/telemetry Temp spike Follow cultures Will follow CT chest UA positive UTI Empiric Rocephin and Doxy Monitor Hypothyroidism On Synthyroid Sleep apnea Nontolerant of CPAP History of CVA 15 years ago as per daughter Holding aspirin and Plavix for brain bleed Continue statin [place] PT OT when stable Hypertension Continue Coreg Currently on diuretics IV labetalol as needed A-fib On Coreg Holding aspirin and Plavix Chronic systolic and diastolic CHF On Coreg Echo EF 40 to 45% when he was admitted to [facility] for sepsis secondary UTI and emphysematous cystitis as per cardiology notes Monitor for volume overload. Currently not on diuretics GERD Epperson's esophagus On Protonix Gout On allopurinol History of alcoholic cirrhosis Will monitor for volume overload BPH On Flomax and finasteride S/p Hernandez in ER CKD stage III Baseline creatinine 2.1-2.3 Presented with creatinine of 2.4 We will follow labs DVT prophylaxis SCDs Disposition Med/telemetry CODE STATUS DNR/DNI as per my discussion with the daughter History of Present Illness Chief Complaint: S/p fall and brain bleed Primary Care Provider: [facility] 84-year-old male who is a resident of the [facility] with past medical history significant for hyperlipidemia, hypothyroidism, obstructive sleep apnea nontolerant of CPAP, CVA, atrial fibrillation, abdominal aortic aneurysm, paroxysmal atrial tachycardia, chronic systolic CHF, hypertension, CKD stage III, BPH, Epperson's esophagus, alcoholic cirrhosis of liver, history of acute emphysematous cholecystitis, obesity, gout, osteoporosis, vascular dementia,, depression, presents with fall and found to have brain bleed. Daughter was called as patient fell around 10 PM. Seems no loss of consciousness. Nursing staff did not saw him falling down. As per daughter recently fell 5 times. Patient ambulates with walker. But his balance is not great as per daughter. As per daughter patient is alert and oriented to name only. Patient can recognize the daughter. Currently on pured diet. Chronically incontinent of stool and bladder movements. No recent fevers. No nausea or vomiting. Patient can tell his name. Does not know where he is. Denies any chest pain or headache. Says he has no pain. Patient had temp spike in the ER. Could not get any history from the patient. Patient was in the hospice in the past but was taken out as per daughter. Patient is DNR/DNI. Daughter does not want him to transfer for brain bleed. If brain bleed gets worse she wants the patient to be comfortable. Daughter works in our hospital on the third floor Past medical history. As mentioned above Past surgical history. Bilateral total knee arthroplasty. Colonoscopy. EGD with biopsy. Knee arthroscopy. Partial right hip replacement. Tonsillectomy and adenoidectomy. Left total hip replacement. Social history. Currently living at [facility]. Smoked an average of 3 packs a day for 5 years. Quit alcohol in 2008. No drug use. Family history. Father age 77 history of CAD. Brother had CABG at age 54. Allergies Allergy/AdvReac Type Severity Reaction Status Date / Time No Known Allergies Allergy Unknown Verified 05/20/24 02:23 Home Medications Medication Instructions Recorded Confirmed Type Desit Maximum Strength 1 applic topical DIRECTED PRN 05/20/24 05/20/24 History .irritation from inc Desitin Maximum Strength 1 applic topical QS 05/20/24 05/20/24 History acetaminophen 325 mg tablet 650 mg PO Q4 PRN Pain 05/20/24 05/20/24 History (Tylenol) allopurinol 100 mg tablet 50 mg PO DAILY 05/20/24 05/20/24 History aspirin 81 mg chewable tablet 81 mg PO DAILY 05/20/24 05/20/24 History atorvastatin 40 mg tablet 40 mg PO QPM 05/20/24 05/20/24 History carvedilol 25 mg tablet 25 mg PO BID 05/20/24 05/20/24 History clopidogrel 75 mg tablet 75 mg PO QAM 05/20/24 05/20/24 History duloxetine 30 mg capsule,delayed 30 mg PO QAM 05/20/24 05/20/24 History release ferrous fumarate 325 mg (106 mg 325 mg PO BID 05/20/24 05/20/24 History iron) tablet finasteride 5 mg tablet 5 mg PO QAM 05/20/24 05/20/24 History folic acid 1 mg tablet 1 mg PO DAILY 05/20/24 05/20/24 History levothyroxine 75 mcg tablet 75 mcg PO DAILY 05/20/24 05/20/24 History menthol 0.44 %-zinc oxide 20.6 % 1 applic topical DIRECTED PRN 05/20/24 05/20/24 History topical ointment (Calmoseptine) .excoriated butt multivitamin 1 tab PO DAILY 05/20/24 05/20/24 History nystatin 100,000 unit/gram topical 1 applic topical BID PRN fungal 05/20/24 05/20/24 History powder (Nystop) rash/prevention pantoprazole 20 mg tablet,delayed 20 mg PO DAILY 05/20/24 05/20/24 History release potassium chloride 20 mEq 20 meq PO DAILY 05/20/24 05/20/24 History tablet,extended release(part/cryst) psyllium husk 0.4 gram capsule 0.4 g PO BID 05/20/24 05/20/24 History (Reguloid (psyllium husk)) tamsulosin 0.4 mg capsule 0.4 mg PO HS 05/20/24 05/20/24 History Past Med/Surg History Problem List (Updated 05/20/24 @ 06:49 by Ej Tillman MD) Closed head injury (Acute) Closed intraventricular hemorrhage (Acute) Brain bleed CVA (cerebral infarction) (Chronic) Cirrhosis of liver (Chronic) COPD (chronic obstructive pulmonary disease) (Chronic) Hip fracture (Acute 10/26/13) Hypoxia (Acute 10/26/13) Renal failure (Acute) SIRS (systemic inflammatory response syndrome) (Acute) Dehydration (Acute) Severe sepsis with acute organ dysfunction (Acute) Anemia (Acute) Encephalopathy (Acute) Fever (Acute) Fracture of femoral neck, left Leukocytosis (Acute) UTI (urinary tract infection) (Acute) Medical History Cirrhosis of liver CKD (chronic kidney disease) COPD (chronic obstructive pulmonary disease) CVA (cerebral infarction) Family History Other Family history non-contributory Social History Smoking Status: Never smoker Preferred Language: Maltese Feels Safe at Home: Yes Review of Systems Review of Systems: All systems reviewed & are unremarkable except as noted in HPI & below Physical Exam Physical Exam: General- Not in distress Head- Bruise seen on right forehead Eyes- PERRL. ENT- oropharynx clear Neck- supple, no JVD. Lungs- clear to auscultation no wheezing or crackles Heart- regular rhythm; no murmur, no gallop. Abdomen- normal bowel sounds, soft, nontender, no distension Extremities- mild pretibial edema, no erythema seen. Neuro- alert, oriented x 1; PERRL, no facial palsy; no dysarthria; motor 5/5 bilaterally; obeys simple commands Results & Data Results & Data Vital Signs (Past 12 Hours) Vital Signs Temp Pulse Pulse Resp BP BP Pulse Ox 05/20/24 03:45 129/85 05/20/24 03:24 187/116 H 05/20/24 03:24 187/116 H 05/20/24 03:15 76 22 05/20/24 03:12 70 19 05/20/24 03:00 76 19 154/120 H 96 05/20/24 02:30 77 19 05/20/24 02:12 75 20 05/20/24 01:45 71 19 05/20/24 01:03 93 05/20/24 01:03 38.2 C H 83 23 144/86 H 93 05/20/24 01:03 38.2 C H 83 23 144/86 H 93 05/20/24 01:03 38.2 C H 83 23 144/86 H 93 05/20/24 01:02 138/70 05/20/24 01:00 81 20 144/86 H 94 05/20/24 00:58 78 05/20/24 00:50 38.2 C H 76 20 144/86 H 93 O2 Del Method O2 Flow Rate 05/20/24 03:45 05/20/24 03:24 05/20/24 03:24 05/20/24 03:15 05/20/24 03:12 05/20/24 03:00 Room Air 05/20/24 02:30 05/20/24 02:12 05/20/24 01:45 05/20/24 01:03 Room Air 0 05/20/24 01:03 Room Air 05/20/24 01:03 Room Air 0 05/20/24 01:03 Room Air 05/20/24 01:02 05/20/24 01:00 05/20/24 00:58 05/20/24 00:50 Room Air Diagnostic Findings Laboratory Results WBC 11.27 K/ul (4.8-10.8) H 05/20/24 02:46 RBC 4.31 M/uL (4.70-6.10) L 05/20/24 02:46 Hgb 12.6 g/dl (14.0-18.0) L 05/20/24 02:46 Hct 37.0 % (42.0-52.0) L 05/20/24 02:46 MCV 85.8 fL (80.0-100.0) 05/20/24 02:46 MCH 29.2 pg (25.0-34.0) 05/20/24 02:46 MCHC 34.1 g/dL (32.0-36.0) 05/20/24 02:46 RDW Std Deviation 43.9 fL (36.4-46.3) 05/20/24 02:46 RDW Coeff of Patrick 14.1 % (11.5-14.5) 05/20/24 02:46 Plt Count 150 K/uL (130-400) 05/20/24 02:46 MPV 10.2 fL (9.4-12.4) 05/20/24 02:46 Immature Gran % (Auto) 0.4 % 05/20/24 02:46 Neut % (Auto) 91.6 % 05/20/24 02:46 Lymph % (Auto) 3.3 % 05/20/24 02:46 [place] % (Auto) 4.3 % 05/20/24 02:46 Eos % (Auto) 0.2 % 05/20/24 02:46 Baso % (Auto) 0.2 % 05/20/24 02:46 Neut # (Auto) 10.33 K/uL (1.40-6.50) H 05/20/24 02:46 Lymph # (Auto) 0.37 K/uL (1.20-3.40) L 05/20/24 02:46 [place] # (Auto) 0.49 K/uL (0.11-0.59) 05/20/24 02:46 Eos # (Auto) 0.02 K/uL (0.00-0.50) 05/20/24 02:46 Baso # (Auto) 0.02 K/uL (0.00-0.20) 05/20/24 02:46 Immature Gran # (Auto) 0.04 K/uL (0.01-0.20) 05/20/24 02:46 RBC Morphology Unremarkable 05/20/24 02:46 Sodium 137 mmol/L (136-145) 05/20/24 01:02 Potassium 3.9 mmol/L (3.5-5.1) 05/20/24 01:02 Chloride 103 mmol/L (98-107) 05/20/24 01:02 Carbon Dioxide 24 mmol/L (21-32) 05/20/24 01:02 Anion Gap 10 (3-11) 05/20/24 01:02 BUN 47 mg/dl (6-23) H 05/20/24 01:02 Creatinine 2.47 mg/dl (0.6-1.4) H 05/20/24 01:02 Est Cr Clr Drug Dosing 28.6 ml/min 05/20/24 01:02 Est GFR ( Amer) 26.4 ml/min 05/20/24 01:02 Est GFR (Non-Af Amer) 22.7 ml/min 05/20/24 01:02 BUN/Creatinine Ratio 19.0 (10-20) 05/20/24 01:02 Glucose 169 mg/dl (70-99(Fasting)) H 05/20/24 01:02 Calcium 8.3 mg/dl (8.6-10.3) L 05/20/24 01:02 Total Bilirubin 0.9 mg/dl (0.2-1.0) 05/20/24 01:02 Direct Bilirubin 0.2 mg/dl (0-0.2) 05/20/24 01:02 AST 18 U/L (13-39) 05/20/24 01:02 ALT 18 U/L (7-52) 05/20/24 01:02 Alkaline Phosphatase 97 U/L (34-104) 05/20/24 01:02 Troponin I High Sens 17.1 pg/ml (0-20) 05/20/24 01:02 Total Protein 6.6 gm/dl (6.0-8.3) 05/20/24 01:02 Albumin 4.0 gm/dl (3.4-5.0) 05/20/24 01:02 Globulin 2.6 gm/dl (2.5-4.0) 05/20/24 01:02 Albumin/Globulin Ratio 1.5 (0.9-2) 05/20/24 01:02 Lipase 32 U/L (11-82) 05/20/24 01:02 Adenovirus (PCR) Not Detected (NotDetected) 05/20/24 01:00 B. pertussis DNA (PCR) Not Detected (NotDetected) 05/20/24 01:00 B.parapertussis DNA PCR Not Detected (NotDetected) 05/20/24 01:00 C. pneumoniae DNA (PCR) Not Detected (NotDetected) 05/20/24 01:00 Coronavirus OC43 (PCR) Not Detected (NotDetected) 05/20/24 01:00 Coronavirus HKU1 (PCR) Not Detected (NotDetected) 05/20/24 01:00 Coronavirus 229E (PCR) Not Detected (NotDetected) 05/20/24 01:00 SARS-CoV-2 (PCR) Not Detected (NotDetected) 05/20/24 01:00 Coronavirus NL63 (PCR) Not Detected (NotDetected) 05/20/24 01:00 Human Metapneumovir PCR Not Detected (NotDetected) 05/20/24 01:00 Influenza Type A (PCR) Not Detected (NotDetected) 05/20/24 01:00 Influenza Type B (PCR) Not Detected (NotDetected) 05/20/24 01:00 M. pneumoniae (PCR) Not Detected (NotDetected) 05/20/24 01:00 Parainfluenza 1 (PCR) Not Detected (NotDetected) 05/20/24 01:00 Parainfluenza 2 (PCR) Not Detected (NotDetected) 05/20/24 01:00 Parainfluenza 3 (PCR) Not Detected (NotDetected) 05/20/24 01:00 Parainfluenza 4 (PCR) Not Detected (NotDetected) 05/20/24 01:00 RSV (PCR) Not Detected (NotDetected) 05/20/24 01:00 Entero/Rhino (PCR) Not Detected (NotDetected) 05/20/24 01:00 Blood Type B Positive 05/20/24 02:46 Antibody Screen NEGATIVE 05/20/24 02:[address] 05/20/24 00:50 Exam(s): CT C SPINE EXAM: CT Cervical Spine Without Intravenous Contrast CLINICAL HISTORY: Trauma. TECHNIQUE: Axial computed tomography images of the cervical spine without intravenous contrast. CTDI is 26.76 mGy and DLP is 538.88 mGy-cm. Automated exposure control was utilized for the study. A dose lowering technique was utilized adhering to the principles of ALARA. COMPARISON: No relevant prior studies available. FINDINGS: Vertebrae: The cervical vertebral bodies are intact without acute traumatic injury. Incidental chronic anterior wedging at C5 level. Partial ankylosis of the C3-C4 disc is noted. The pedicles, facet joints, spinous processes and transverse processes are intact. Multilevel bilateral facet hypertrophic arthrosis is chronic in appearance. Discs/spinal canal/neural foramina: Incidental bilateral facet ankylosis noted at C3-C4. Multilevel disc space narrowing with marginal hypertrophic osteophyte changes noted at several levels. No severe osseous central canal stenosis. Soft tissues: Unremarkable. Lung apices: The included lung apices demonstrate no evidence for significant acute traumatic injury. IMPRESSION: No acute osseous traumatic injury or significant abnormal alignment involving the cervical spine. Electronically signed by: Wilbert Prather MD 05/20/24 01:[address] 05/20/24 00:50 CR Exam(s): CT HEAD Without Contrast EXAM: CT Head Without Intravenous Contrast CLINICAL HISTORY: trauma. TECHNIQUE: Axial computed tomography images of the head/brain without intravenous contrast. CTDI is 38.99 mGy and DLP is 624.41 mGy-cm. Automated exposure control was utilized for the study. A dose lowering technique was utilized adhering to the principles of ALARA. COMPARISON: CT head without contrast dated 03/20/2021 FINDINGS: Brain: Underlying parenchymal involutional changes with prominence of the cerebral sulci and sylvian fissures. Periventricular deep white matter hypodense changes noted. No hemorrhage. Ventricles: Asymmetric intraventricular hemorrhage is noted involving the right temporal horn. No definite intraparenchymal hemorrhagic changes noted. No significant mass effect. No midline shift or ventriculomegaly. Bones/joints: No skull fracture. Soft tissues: Mild superficial scalp contusive changes overlie the right high frontal region. No radiopaque foreign body. No subcutaneous emphysema. Vasculature: Atherosclerotic calcification involving the cavernous and supraclinoid internal carotid arteries. Minimal atherosclerotic calcification involving the distal vertebral arteries. Sinuses: No traumatic effusions involving the paranasal sinuses. Mastoid air cells: Unremarkable as visualized. No mastoid effusion. IMPRESSION: Asymmetric intraventricular hemorrhage is noted involving the right temporal horn. No definite intraparenchymal hemorrhagic changes noted. No significant mass effect or midline shift. Recommend short-term interval follow-up to ensure stability over time. Communications: Call Doctor Intracranial Hemorrhage Electronically signed by: Wilbert Prather MD 05/20/24 01:54 AM ECG Additional Comments: ECG. Atrial fibrillation rate 74. Left axis deviation. Code Status & VTE Plan VTE Prophylaxis Plan VTE Prophylaxis will be ordered: Yes
[2024-05-20] MEDS: DOXYCYCLINE HYCLATE 100 MG in DEXTROSE 5% MINI-B 100 ML IV STA (04:03)
--- OUTSIDE RECORDS SUMMARY | 2024-05-20 05:24 | External Medical Summary ---
Author Name Unknown Address Unknown Organization [id number]:[facility] [address] [place] [address] Laboratory Report Ordering Provider Test Date Status NICHOLE WEAVER 04/21/2024 06:30:00 Final Observation Date Value Abnormality Reference (Units ) Status Albumin 04/21/2024 06:30:00 4.0 3.8-5.0 (g/dL) Final AST (Aspartate aminotransferase) 04/21/2024 06:30:00 15 10-50 (U/L) Final Alk Phos 04/21/2024 06:30:00 105 35-130 (U/L) Final ALT (Alanine aminotransferase) 04/21/2024 06:30:00 14 10-50 (U/L) Final Bilirubin, Total 04/21/2024 06:30:00 0.6 <=1.2 (mg/dL) Final Bilirubin, Direct 04/21/2024 06:30:00 <0.2 0.0-0.3 (mg/dL) Final Protein 04/21/2024 06:30:00 6.5 6.0-8.3 (g/dL) Final Performing Location [facility] [address] [place] [address]
--- OUTSIDE RECORDS SUMMARY | 2024-05-20 05:24 | External Medical Summary ---
Author Name Unknown Address Unknown Organization [id number]:[facility] [place] - [address] [place] [address] Laboratory Report Ordering Provider Test Date Status NICHOLE WEAVER 04/21/2024 06:30:00 Final Observation Date Value Abnormality Reference (Units ) Status TSH 04/21/2024 06:30:00 4.93 Above high normal 0. 27-4.20 (uIU/mL) Final Performing Location [facility] [place] - [address] [place] [address]
--- OUTSIDE RECORDS SUMMARY | 2024-05-20 05:24 | External Medical Summary ---
Author Name Unknown Address Unknown Organization [id number]:[facility] [place] [address] [facility] [place] [address] Laboratory Report Ordering Provider Test Date Status NICHOLE WEAVER 04/21/2024 06:30:00 Final Observation Date Value Abnormality Reference (Units ) Status Triglyceride 04/21/2024 06:30:00 144 <=174 ( mg/dL) Final Triglyceride Reference Range s (mg/dL):
<150 Acceptable
150-174 Borderline high
175-499 High
>=500 Very high Cholesterol 04/21/2024 06:30:00 150 <200 (mg /dL) Final Total Cholesterol Reference Ranges (mg/dL):
<200 Desirable
200-239 Borderline high
>=240 High HDL 04/21/2024 06:30:00 36 Below low normal >39 (mg/dL) Final HDL Cholesterol Reference Ra nges (mg/dL):
>=60 High (Desirable)
<50 Low (Undesirable) For Females
<40 Low (Undesirable) For Males NON-HDL CHOLESTEROL 04/21/2024 06:30:00 114 <=159 (mg/dL) Final Non-HDL Cholesterol Referenc e Range (mg/dL):
<100 Target level for high risk ASCVD patient
<130 Optimal for general population
130-159 Near optimal for general population
160-189 Borderline High
190-219 High
>=220 Very High LDL, (calculated) 04/21/2024 06:30:00 85 <= 129 (mg/dL) Final LDL Cholesterol Reference Ra nges (mg/dL):
<70 Target level for high risk ASCVD patient
<100 Optimal for general population
100-129 Near optimal for general population
130-159 Borderline high
160-189 High
>=190 Very high Performing Location [facility] [place] [address] [facility] [address]
--- OUTSIDE RECORDS SUMMARY | 2024-05-20 05:24 | External Medical Summary | Summary of Care ---
Author Name Unknown Organization [facility] Address [address] [facility] [place] [address] Phone [phone] Care Team Providers Care Framing Mill Operator Name Role Phone Rosangela Felipe DO Primary Care Provider [phone] Reason for Visit * Reason Comments eRx-Medication Refill Encounter Details Date Type Department Care Team (Late st Contact Info) Description 05/04/2024 Refill Family Practice [facility] [address] [facility] [place] [address] Rosangela Felipe DO [address] [facility] [place] [address] Allergies No known active allergiesdocumented as of this encounter (statuses as of 05/06/2024) Medications Medication Sig Dispensed Refills Start Date End Date Status docusate sodium (COLACE) 100 MG Capsule Take 1 Cap by mouth 2 times a day as needed for Constipation. 60 Cap 5 9 Active denosumab (PROLIA) 60 MG/ML injection Inject 60 mg under the skin. 1 inj every 6 mo Active Acetaminophen ER 650 MG TBCR 1 tablet by mouth every 6 hours as needed for pain or fever 100 Tab 5 9 Active Polyvinyl Alcohol 1.4 % Ophthalmic Solution (Artificial Tears) Instill 2 Drops into both eyes as needed for Dry eyes. 15 mL 11 1 Active Desitin Maximum Strength 40 % External Paste (Zinc Oxide) Apply topically to affected area as needed for Dry Skin. Apply to gluteal cleft topically every shift for irritation Active guaiFENesin ER 600 MG Oral Tablet Extended Release 12 Hour (Humibid LA) Take 600 mg by mouth 2 times a day as needed for Cough or Congestion. Active Loperamide HCl 2 MG Oral Tablet (Imodium A-D) Take 2 mg by mouth. Give 2 tabs by mouth after first loose stool then 1 tablet by mouth every 6 hours as needed for each additional loose stool. Active Nystatin 565475 UNIT/GM External Powder (Nystop) Apply topically to affected area 3 times a day. Apply to groin 60 g 3 1 Active Menthol-Zinc Oxide 0.44-20.6 % External Ointment (Calmoseptine) Apply to right buttock open area twice daily until healed. 71 g 3 1 Active MEDICAL INSTRUCTIONS Apply Calmoseptine cream to right buttock open area twice daily until healed. 1 Each 1 1 Active MEDICAL INSTRUCTIONS Apply Optifoam 3x3 dressing to open area on buttock as needed. 1 Each 1 1 Active Clopidogrel Bisulfate 75 MG Oral Tablet (pLAVix)Indicati ons:Atrial fibrillation (HCC) 1 TAB BY MOUTH EVERY DAY FOR CEREBROVASCULAR ACCIDENT 30 Tablet 5 2 Active Folic Acid 1 MG Oral TabletIndication s:Anemia, unspecified type Take by mouth 1 Tablet in the morning. 30 Tablet 4 2 Active Carvedilol 25 MG Oral Tablet (Coreg)Indicatio ns:Hypertensive heart disease TAKE 1 TAB BY MOUTH 2 TIMES A DAY. (MORNING/BEDTIME) FOR HYPERTENSION 180 Tablet 3 2 Active LORazepam 2 MG/ML Oral Concentrate (Ativan) 2 Active Bisacodyl 10 MG Rectal Suppository (Dulcolax) 2 Active Atropine Sulfate 1 % Ophthalmic Solution 2 Active Promethazine HCl Powder 2 Active Morphine Sulfate (Concentrate) 100 MG/5ML Oral Solution 2 Active Pantoprazole Sodium 20 MG Oral Tablet Delayed Release (Protonix) 1 TAB BY MOUTH EVERY MORNING 30 Tablet 11 2 Active Atorvastatin Calcium 40 MG Oral Tablet (Lipitor)Indicat ions:Dyslipidemi a, goal LDL below 100 TAKE 1 TAB BY MOUTH DAILY. 30 Tablet 11 2 Active Aspirin 81 MG Oral Tablet Chewable (Aspirin Low Dose) 1 TAB BY MOUTH EVERY MORNING 30 Tablet 10 3 Active Furosemide 40 MG Oral Tablet (Lasix)Indicatio ns:Chronic systolic CHF (congestive heart failure) (HCC) Take once with morning pills and then a dose before dinner 60 Tablet 11 3 Active Levothyroxine Sodium 75 MCG Oral Tablet (Levoxyl) TAKE 1 TAB BY MOUTH DAILY. (AT LEAST 30 MIN PRIOR TO BREAKFAST OR OTHER MEDS) 30 Tablet 3 Active Amoxicillin 500 MG Oral Capsule (Amoxil) 4 CAPS (2000MG) BY MOUTH NEEDED PRIOR TO DENTAL APPT 4 Capsule 4 3 Active DULoxetine HCl 30 MG Oral Capsule Delayed Release Particles (Cymbalta)Indica tions:Recurrent major depressive disorder, in partial remission (HCC) 1 CAP BY MOUTH EVERY MORNING 30 Capsule 5 4 Active Finasteride 5 MG Oral Tablet (Proscar) TAKE 1 TABLET (5 MG) BY MOUTH DAILY 90 Tablet 3 4 Active Tamsulosin HCl 0.4 MG Oral Capsule (Flomax)Indicati ons:Urinary frequency TAKE 1 CAPSULE (0.4 MG) BY MOUTH DAILY AT BEDTIME 90 Capsule 3 4 Active Ferrocite 324 MG Oral Tablet (Ferrous Fumarate) GIVE 1 TAB BY MOUTH TWICE DAILY TAKE WITH FOOD 60 Tablet 5 4 Active Ferrocite 324 MG Oral Tablet (Ferrous Fumarate) 1 TAB BY MOUTH TWICE DAILY - TAKE WITH FOOD 60 Tablet 10 3 024 Discontinued documented as of this encounter (statuses as of 05/06/2024) Active Problems Problem Noted Date Diagnosed Date Hemiplegia and hemiparesis f ollowing unspecified cerebrovascular disease affecting unspecified side 04/17/2022 Paroxysmal atrial fibrillation 04/17/2022 Severe obesity with body mas s index (BMI) of 35.0 to 39.9 with serious comorbidity 04/17/2022 Benign hypertension with CKD (chronic kidney disease) stage III 04/17/2022 Paroxysmal atrial fibrillation 04/17/2022 Hospice care patient 08/29/2021 Acute emphysematous cholecystitis 04/05/2021 Emphysematous cystitis 04/05/[address] 04/05/2021 Calculus of gallbladder with chronic cholecystitis without obstruction 04/05/2021 Chronic systolic CHF (congestive heart failure) 04/05/2021 Chronic kidney disease, stage 3b 04/03/2021 Overview: Per CKD protocol Benign hypertension with stage 3b chronic kidney disease 02/27/2021 Overview: Per CKD protocol Hemiplegia 08/16/2020 Age-related osteoporosis wit hout current pathological fracture 07/19/2020 Alcoholic cirrhosis of liver without ascites 09/2019 Patient has active physician orders for life-sustaining treatment (POLST) form 03/31/2019 Acquired hypothyroidism 09/21/2018 Paroxysmal atrial tachycardia 02/03/2018 Recurrent major depressive disorder, in partial remission 02/03/2018 Vascular dementia without behavioral disturbance 12/12/2017 Abdominal aortic aneurysm (AAA) without rupture 09/22/2017 HTN, goal below 150/90 07/18/2017 Severe obstructive sleep apnea 02/08/2014 Overview: 08/2014 -- Non compliant with PAP therapy. DC CPAP. AHI on split 01/27/14 was 75.1 AHP Alcohol abuse, episodic 02/02/2013 History of basal cell cancer 11/10/2012 Overview: Left dorsal hand - 2011 Left cheek - 2011 Atrial fibrillation 05/25/2012 BPH with obstruction/lower urinary tract symptom s 05/17/2011 Dyslipidemia, goal LDL below 100 03/08/2011 Cerebrovascular disease, arteriosclerotic, post- stroke 01/24/2011 Sequela, post-stroke 12/23/2010 Overview: right hemisphere, right internal capsule, left hemiplegia, left facial droop Abnormality of gait 07/20/2010 HYPERTENSIVE HEART DZ 08/17/2009 Overview: Per Heart Failure Taxonomy Protocol. Gouty arthropathy 08/03/2009 Alcoholic cirrhosis of liver 08/25/2008 Epperson's esophagus 07/25/2008 Overview: Repeat EGD 07/2010 recommended, positive biopsy for Barretts esophagus Benign neoplasm of colon 12/31/2006 Overview: hyperplastic polyp--repeat 10 years No advance directive on file 03/20/2005 Overview: Yes, Patient instructed to provide copy of advance directive for provider to review and to be scanned into Electronic Medical Record documented as of this encounter (statuses as of 05/06/2024) Resolved Problems Problem Noted Date Diagnosed Date Resolved Date Benign hypertension with CKD (chronic kidney disease) stage III 02/03/2018 03/01/2021 Overview: Per CKD protocol Confusion 12/19/2017 09/21/2018 C. difficile enteritis 11/02/201511/02 C. difficile colitis 10/29/2015 019 Dry eye 04/25/2015 03/31/2019 Urinary frequency 04/05/2015 03/31/2019 Depression 08/28/2014 03/11/2018 Humerus surgical neck fracture 04/09/2013 09/21/2018 Overview: right Severe obesity with body mas s index (BMI) of 35.0 to 39.9 with serious comorbidity 04/09/2013 Overview: ICD-10 update of inactive diagnosis KIDNEY DISEASE, CHRONIC, STA GE III (GFR 30-59 ML/MIN) 03/09/2012 03/12/2018 Overview: Per CKD protocol #1 OBESITY, BMI 30-34 (SEE ACTUAL BMI) 01/11/2010 04/09/2013 Overview: Per Obesity Taxonomy Hypertensive heart disease 07/13/2009 1 Overview: Per Heart Failure Taxonomy Protocol. Major depressive disorder 09/28/2008 Overview: ICD-10 update of inactive term Gouty arthropathy 09/28/2008 08/03/2009 Overview: ICD-9 Code Update ICD-10 update of inactive term Gastroparesis 09/28/2008 03/11/2018 Chronic Alcohol Dependence 08/25/2008 1 12/06/2010 Renal failure 08/25/2008 03/26/2010 H. pylori infection 08/25/2008 02/03/20 13 HTN, goal below 140/90 12/24/200007/18 LIPOMA SKIN NEC 12/24/2000 03/11/2018 GENERAL OSTEOARTHROSIS 03/31 OBESITY, UNSPECIFIED 010 Overview: Per Obesity Taxonomy Dyslipidemia, goal to be determined 03/08/2011 documented as of this encounter (statuses as of 05/06/2024) Immunizations Name Administration Dates Next Due Pneumococcal Conjugate Vacc, 13 Valent (Prevnar) 11/07/2014 Seasonal Influenza, Quadriva lent Hd (Fluzone Hd) 08/21/2021 Seasonal Influenza, Split, I IV3, With Preserve, Inj 09/09/2012,09/03/2011,07/26/2010,2008,08/23/2008,08/12/2007 TD, Preservative Free 10/27/2008 TDAP (age 10 and older)(Boostrix) 12/28/2014 Varicella Zoster Vaccine (Adult) 12/28/2014 documented as of this encounter Social History Tobacco Use Types Packs/Day Years Used Date Smoking Tobacco: Former Cigarettes 3 5 Smokeless Tobacco: Never Alcohol Use Standard Drinks/Week Comments Not Currently 0 (1 standard drink = 0.6 oz pur e alcohol) quit 12/28/08, alcoholic PHQ-2 Answer Date Recorded PHQ-2 Score 0 08/23/2018 Utilities Answer Date Recorded Do you have trouble paying y our heating, water, or electric bill? (Adult - for ages 18 years and over) Not on file 04/06/2024 Is your family able to pay t he heat, water, or electric bill? (Household - for ages 0-17 years) Not on file 04/06/2024 Does your family have access to good internet? (Household - for ages 0-17 years) Not on file 04/06/2024 Social Connections Answer Date Recorded How often do you feel lonely or isolated from those around you? (Adult - for ages 18 years and over) Not on file 04/06/2024 Sex and Gender Information Value Date Recorded Sex Assigned at Not on file Gender Identity Not on file Sexual Orientation Not on file Job Start Date Occupation Industry Not on file Not on file Not on file documented as of this encounter Miscellaneous Notes * Telephone Encounter - Rosangela Felipe DO - 05/06/2024 2:58 PM EDTSigned Prescriptions: Disp Refills Ferrocite 324 MG Oral Tablet (Ferrous Fuma*60 Tab*5 Sig: GIVE 1 TAB BY MOUTH TWICE DAILY TAKE WITH FOOD Authorizing Provider: ROSANGELA FELIPE * Telephone Encounter - Christina Lara per diem nurse - 05/06/2024 9:04 AM EDT Pending Prescriptions: Disp Refills Ferrocite 324 MG Oral Tablet (Ferrous Fuma*60 Tab*0 Sig: GIVE 1 TAB BY MOUTH TWICE DAILY TAKE WITH FOOD * Telephone Encounter - Christina Lara per diem nurse - 05/06/2024 9:02 AM EDT Received message from [facility] regarding patient needing an appointment and labs. Call Placed, Left message on voicemail advising of required labs and to call back for an appointment. Thank you for your assistance Christina Lara Metallurgical Technician II [facility] 05/06/2024,9:02 AM * Telephone Encounter - Montserrat Sandra RP - 05/05/2024 4:57 PM EDTPending Prescriptions: Disp Refills Ferrocite 324 MG Oral Tablet (Ferrous Fuma*60 Tab*0 Sig: GIVE 1 TAB BY MOUTH TWICE DAILY TAKE WITH FOOD * Telephone Encounter - Montserrat Sandra RP - 05/05/2024 4:55 PM EDT Provided 0 days supply with 0 refill. Per refill protocol patient should have labs on file within past year. Reviewed AMP report, Care Gaps/Health Maintenance, medications list, and for any routine labs typically ordered for this patient. Lab orders placed. Please contact patient to schedule office visit with PRIMARY CARE and advise of labs ordered for blood draw. Fasting is not required. Advise to obtain labs before requesting the next refill. Last Visit: 05/01/2022 (in office), 10/18/2020 (telemedicine) Next Visit: Visit date not found Thank you, Montserrat Sandra [facility] Clinical Pharmacist [facility] 05/05/24 4:55 PM [phone] * Telephone Encounter - Montserrat Sandra RP - 05/05/2024 4:55 PM EDT Did you pend patient's preferred pharmacy and medication before forwarding?yes Pharmacy: [facility] [address] Pending Prescriptions: Disp Refills Ferrocite 324 MG Oral Tablet (Ferrous Fum*60 Tab*0 Sig: GIVE 1 TAB BY MOUTH TWICE DAILY TAKE WITH FOOD Last Visit: 05/01/2022 (in office), 10/18/2020 (telemedicine) Next Visit: Visit date not found If no future appointments scheduled, and last appointment is greater than a year ago, please schedule patient for a follow-up appointment Last date the medication was ordered: 06/12/2023 Is this request for a controlled substance?No Urine Drug Screen:No results found. However, due to the size of the patient record, not all encounters were searched. Please check Results Review for a complete set of results. Patient Phone Numbers Labs: Lab Results Component Value Date/Time CREAT 2.3 (H) 04/02/2024 06:50 AM CREAT 1.5 (H) 10/24/2020 06:05 AM POTASSIUM 4.5 04/02/2024 06:50 AM POTASSIUM 4.0 10/24/2020 06:05 AM TSH 4.93 (H) 04/21/2024 06:30 AM TSH 2.40 07/04/2020 06:35 AM LDLCALC 85 04/21/2024 06:30 AM LDLCALC 53 07/04/2020 06:35 AM LDLDIRECT 90 04/21/2023 12:45 PM LDLDIRECT 79 05/21/2019 11:31 AM ALT 14 04/21/2024 06:30 AM ALT 13 05/21/2019 11:31 AM HGBA1C 5.8 (H) 09/21/2018 11:29 AM documented in this encounter Plan of Treatment Upcoming Encounters Date Type Department Care Team (Late st Contact Info) Description 03/25/2025 10:30 AM EDT Telemedicine Urology Joshua Ochoa [address] [place] [address] Anthony Art MD [address] [place] [address] Health Maintenance Due Date Last Done Comments Zoster Vaccines (2 of 3) 02/22/2015 12/28/2014 Depression Monitoring 03/11/2019 03/11/2018 COVID-19 Vaccine (2022-2 4 season) 2023 TSH 04/21/2025 04/21/2024, 03/20, 10/22/2023, Additional history exists documented as of this encounter Medical Devices Not on filedocumented as of this encounter Care Teams Framing Mill Operator Relationship Specialty Start Date End Date Rosangela Felipe DO [address] [place] [address] PCP - General Family Medicine 12/16/18 documented as of this encounter
--- OUTSIDE RECORDS SUMMARY | 2024-05-20 05:24 | External Medical Summary | Summary of Care ---
Author Name Unknown Organization [facility] [address] [facility] [address] Phone [phone] Care Team Providers Care Lay Out Drafter Name Role Phone BenRanjit becerra Primary Care Provider [phone] Encounter Details Date Type Department Care Team (Late st Contact Info) Description 04/21/2024 Orders Only Lab Mobile Phlebotomy [facility] [address] [place] [address] Leticia Carpenter CRNP [address] [address] Osteoporotic fracture of right hip (HCC)*; Anemia; Kidney disease, chronic, stage I (GFR over 89 ml/min); Alcoholic cirrhosis of liver (HCC); Dyslipidemia, goal LDL below 160 Allergies No known active allergiesdocumented as of this encounter (statuses as of 04/21/2024) Medications Medication Sig Dispensed Refills Start Date End Date Status docusate sodium (COLACE) 100 MG Capsule Take 1 Cap by mouth 2 times a day as needed for Constipation. 60 Cap 5 02/16/2019 Active denosumab (PROLIA) 60 MG/ML injection Inject 60 mg under the skin. 1 inj every 6 mo Active Acetaminophen ER 650 MG TBCR 1 tablet by mouth every 6 hours as needed for pain or fever 100 Tab 5 08/11/2019 Active Polyvinyl Alcohol 1.4 % Ophthalmic Solution (Artificial Tears) Instill 2 Drops into both eyes as needed for Dry eyes. 15 mL 11 11/28/2020 Active Desitin Maximum Strength 40 % External [...] for each additional loose stool. Active Nystatin 862123 UNIT/GM External Powder (Nystop) Apply topically to affected area 3 times a day. Apply to groin 60 g 3 05/15/2021 Active Menthol-Zinc Oxide 0.44-20.6 % External Ointment (Calmoseptine) Apply to right buttock open area twice daily until healed. 71 g 3 06/26/2021 Active MEDICAL INSTRUCTIONS Apply Calmoseptine cream to right buttock open area twice daily until healed. 1 Each 1 06/26/2021 Active MEDICAL INSTRUCTIONS Apply Optifoam 3x3 dressing to open area on buttock as needed. 1 Each 1 07/23/2021 Active Clopidogrel Bisulfate 75 MG Oral Tablet (pLAVix)Indication s:Atrial fibrillation (HCC) 1 TAB BY MOUTH EVERY DAY FOR CEREBROVASCULAR ACCIDENT 30 Tablet 5 11/21/2021 Active Folic Acid 1 MG Oral TabletIndications: Anemia, unspecified type Take by mouth 1 Tablet in the morning. 30 Tablet 4 03/29/2022 Active Carvedilol 25 MG Oral Tablet (Coreg)Indications :Hypertensive heart disease TAKE 1 TAB BY MOUTH 2 TIMES A DAY. (MORNING/BEDTIME) FOR HYPERTENSION 180 Tablet 3 05/03/2022 Active LORazepam 2 MG/ML Oral Concentrate (Ativan) 04/12/2022 Active Bisacodyl 10 MG Rectal Suppository (Dulcolax) 04/12/2022 Active Atropine Sulfate 1 % Ophthalmic Solution 04/12/2022 Active Promethazine HCl Powder 04/12/2022 Active Morphine Sulfate (Concentrate) 100 MG/5ML Oral Solution 04/12/2022 Active Pantoprazole Sodium 20 MG Oral Tablet Delayed Release (Protonix) 1 TAB BY MOUTH EVERY MORNING 30 Tablet 11 05/22/2022 Active Atorvastatin Calcium 40 MG Oral Tablet (Lipitor)Indicatio ns:Dyslipidemia, goal LDL below 100 TAKE 1 TAB BY MOUTH DAILY. 30 Tablet 11 05/22/2022 Active Aspirin 81 MG Oral Tablet Chewable (Aspirin Low Dose) 1 TAB BY MOUTH EVERY MORNING 30 Tablet 10 01/08/2023 Active Furosemide 40 MG Oral Tablet (Lasix)Indications :Chronic systolic CHF (congestive heart failure) (HCC) Take once with morning pills and then a dose before dinner 60 Tablet 11 12/18/2022 Active Ferrocite 324 MG Oral Tablet (Ferrous Fumarate) 1 TAB BY MOUTH TWICE DAILY - TAKE WITH FOOD 60 Tablet 10 06/12/2023 Active Levothyroxine Sodium 75 MCG Oral Tablet (Levoxyl) TAKE 1 TAB BY MOUTH DAILY. (AT LEAST 30 MIN PRIOR TO BREAKFAST OR OTHER MEDS) 30 Tablet 06/16/2023 Active Amoxicillin 500 MG Oral Capsule (Amoxil) 4 CAPS (2000MG) BY MOUTH NEEDED PRIOR TO DENTAL APPT 4 Capsule 4 06/16/2023 Active DULoxetine HCl 30 MG Oral Capsule Delayed Release Particles (Cymbalta)Indicati ons:Recurrent major depressive disorder, in partial remission (HCC) 1 CAP BY MOUTH EVERY MORNING 30 Capsule 5 03/08/2024 Active Finasteride 5 MG Oral Tablet (Proscar) TAKE 1 TABLET (5 MG) BY MOUTH DAILY 90 Tablet 3 03/08/2024 Active Tamsulosin HCl 0.4 MG Oral Capsule (Flomax)Indication s:Urinary frequency TAKE 1 CAPSULE (0.4 MG) BY MOUTH DAILY AT BEDTIME 90 Capsule 3 03/23/2024 Active documented as of this encounter (statuses as of 04/21/2024) Active Problems Problem Noted Date Diagnosed Date [...] as of this encounter (statuses as of 04/21/2024) Resolved Problems Problem Noted Date Diagnosed Date [...] as of this encounter (statuses as of 04/21/2024) Immunizations Name Administration Dates Next Due Pneumococcal [...] on file documented as of this encounter Plan of Treatment Upcoming Encounters Date Type Department Care Team (Late st Contact Info) Description 03/25/2025 10:30 AM EDT Telemedicine Urology Joshua Ochoa [address] [place] [address] Anthony Art MD [address] [place] [id number] Scheduled Orders Name Type Priority Associated Diagnoses Orde r Schedule HEPATIC FUNCTION PANEL Lab Routine Osteoporotic fracture of right hip (HCC) Anemia Kidney disease, chronic, stage I (GFR over 89 ml/min) Alcoholic cirrhosis of liver (HCC) Dyslipidemia, goal LDL below 160 Expected: 04/21/2024, Expires: 04/21/2025 LIPID PANEL WITHOUT DIRECT LDL Lab Routine Osteoporotic fracture of right hip (HCC) Anemia Kidney disease, chronic, stage I (GFR over 89 ml/min) Alcoholic cirrhosis of liver (HCC) Dyslipidemia, goal LDL below 160 Expected: 04/21/2024, Expires: 04/21/2025 25-HYDROXY VITAMIN D Lab Routine Osteoporotic fracture of right hip (HCC) Anemia Kidney disease, chronic, stage I (GFR over 89 ml/min) Alcoholic cirrhosis of liver (HCC) Dyslipidemia, goal LDL below 160 Expected: 04/21/2024, Expires: 04/21/2025 TSH Lab Routine Osteoporotic fracture of right hip (HCC) Anemia Kidney disease, chronic, stage I (GFR over 89 ml/min) Alcoholic cirrhosis of liver (HCC) Dyslipidemia, goal LDL below 160 Expected: 04/21/2024, Expires: 04/21/2025 Health Maintenance Due Date Last Done Comments Zoster Vaccines (2 of 3) 02/22/2015 12/28/2014 Depression Monitoring 03/11/2019 03/11/2018 COVID-19 Vaccine (2022-2 4 season) 2023 TSH 04/02/2025 04/02/2024, 12/2023, 04/21/2023, Additional history exists documented as of this encounter Medical Devices Not on filedocumented as of this encounter Visit Diagnoses Diagnosis Osteoporotic fracture of right hip (HCC)- Primary Anemia Anemia, unspecified Kidney disease, chronic, stage I (GFR over 89 ml/min) Chronic kidney disease, Stage I Alcoholic cirrhosis of liver (HCC) Alcoholic cirrhosis of liver Dyslipidemia, goal LDL below 160 Other and unspecified hyperlipidemia documented in this encounter Care Teams Lay Out Drafter Relationship Specialty Start Date End Date Ranjit Baird DO [address] [place] [address] PCP - General Family Medicine 12/16/18 documented as of this encounter
--- OUTSIDE RECORDS SUMMARY | 2024-05-20 05:24 | External Medical Summary ---
Author Name Unknown Address Unknown Organization K01:[facility] [address] [place] [address] Laboratory Report Ordering Provider Test Date Status NICHOLE WEAVER 04/21/2024 06:30:00 Final Deficient: <20 ng/mL
Ins ufficient: 20-29 ng/mL
Recommended/Optimum:30-50 ng/mL

Vitamin D intoxication is rare. If suspicious of Vitamin D toxicity, evaluation of serum Calcium and PTH is recommended. Observation Date Value Abnormality Reference (Units ) Status 25-OH Vitamin D total 04/21/2024 06:30:00 39 >19 (ng/mL) Final Performing Location [facility] [address] [place] [address]
--- OUTSIDE RECORDS SUMMARY | 2024-05-20 05:25 | External Medical Summary | Summary of Care ---
Author Name Unknown Organization [facility] Address [address] [facility] [place] [address] Phone [phone] Care Team Providers Care Junior Architect Name Role Phone BenRosangela becerra Primary Care Provider [phone] [phone] Encounter Details Date Type Department Care Team (Late st Contact Info) Description 03/23/2024 3:45 PM EDT Telemedicine Urology Joshua Ochoa [address] [place] [address] [place] [address] Anthony Art MD [address] [place] [address] [place] [address] Urinary frequency*; Urge incontinence of urine; BPH with obstruction/lower urinary tract symptoms; History of UTI Allergies No known active allergiesdocumented as of this encounter (statuses as of 03/23/2024) Medications Medication Sig Dispensed Refills Start Date [...] for each additional loose stool. Active Nystatin 612733 UNIT/GM External Powder (Nystop) Apply topically to [...] Active Clopidogrel Bisulfate 75 MG Oral Tablet (pLAVix)Indicatio ns:Atrial fibrillation (HCC) 1 TAB BY MOUTH EVERY DAY FOR CEREBROVASCULAR ACCIDENT 30 Tablet 5 2 Active Folic Acid 1 MG Oral TabletIndications :Anemia, unspecified type Take by mouth 1 Tablet in the morning. 30 Tablet 4 2 Active Carvedilol 25 MG Oral Tablet (Coreg)Indication s:Hypertensive heart disease TAKE 1 TAB BY MOUTH [...] Active Atorvastatin Calcium 40 MG Oral Tablet (Lipitor)Indicati ons:Dyslipidemia, goal LDL below 100 TAKE 1 TAB BY MOUTH DAILY. 30 Tablet 11 2 Active Aspirin 81 MG Oral Tablet Chewable (Aspirin Low Dose) 1 TAB BY MOUTH EVERY MORNING 30 Tablet 10 3 Active Furosemide 40 MG Oral Tablet (Lasix)Indication s:Chronic systolic CHF (congestive heart failure) (HCC) Take once with morning pills and then a dose before dinner 60 Tablet 11 3 Active Ferrocite 324 MG Oral Tablet (Ferrous Fumarate) 1 TAB BY MOUTH TWICE DAILY - TAKE WITH FOOD 60 Tablet 10 3 Active Levothyroxine Sodium 75 MCG Oral Tablet (Levoxyl) TAKE 1 TAB BY MOUTH DAILY. (AT LEAST 30 MIN PRIOR TO BREAKFAST OR OTHER MEDS) 30 Tablet 3 Active Amoxicillin 500 MG Oral Capsule (Amoxil) 4 CAPS (2000MG) BY MOUTH NEEDED PRIOR TO DENTAL APPT 4 Capsule 4 3 Active DULoxetine HCl 30 MG Oral Capsule Delayed Release Particles (Cymbalta)Indicat ions:Recurrent major depressive disorder, in partial remission (HCC) 1 CAP BY MOUTH EVERY MORNING 30 Capsule 5 4 Active Finasteride 5 MG Oral Tablet (Proscar) TAKE 1 TABLET (5 MG) BY MOUTH DAILY 90 Tablet 3 4 Active Tamsulosin HCl 0.4 MG Oral Capsule (Flomax)Indicatio ns:Urinary frequency TAKE 1 CAPSULE (0.4 MG) BY MOUTH DAILY AT BEDTIME 90 Capsule 3 4 Active Tamsulosin HCl 0.4 MG Oral Capsule (Flomax)Indicatio ns:Urinary frequency TAKE 1 CAPSULE (0.4 MG) BY MOUTH DAILY AT BEDTIME 90 Capsule 3 2 03/23/20 24 Discontinu ed(Refill) documented as of this encounter (statuses as of 03/23/2024) Active Problems Problem Noted Date Diagnosed Date [...] as of this encounter (statuses as of 03/23/2024) Resolved Problems Problem Noted Date Diagnosed Date [...] as of this encounter (statuses as of 03/23/2024) Immunizations Name Administration Dates Next Due Pneumococcal [...] Answer Date Recorded PHQ-2 Score 0 08/23/2018 Sex and Gender Information Value Date Recorded Sex Assigned at Not on file Gender Identity Not on file Sexual Orientation Not on file Job Start Date Occupation Industry Not on file Not on file Not on file documented as of this encounter Progress Notes * Anthony Art MD - 03/23/2024 3:50 PM EDT [id number] PCP: [address] [address] [phone] Patient location: HOME. I was in a hospital or clinic location. After connecting through [employer],patient was verified with two unique identifiers. 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 Methods to assure confidentiality were taken. Patient acknowledged consent and understanding of pr ivacy and security of the Telemedicine visit. The patient agreed to participate. Ketan Demarco is a 84 year old male, who presents for delayed f/u of his history of BPH. He is here with family. He remains a poor historian, majority of history provided by daughter. He remains off hospice. He remains incontinent, cared for by staff at [facility] without issue. Daughter denies UTI,skin breakdown or difficulties with hygiene. BPH: Patient is being seen for BPH today. He has had the following symptoms: inability to urinate and need for catheter placement. Severity is moderate. He has tried tamsulosin and finasteride. He has previously had office cystoscopy done. Problem has been present for years. Problem is about the same. He uses diapers and pads for incontinence. Poor ambulation, significant functional component. Current Outpatient Medications Medication Sig Dispense Refill docusate sodium (COLACE) 100 MG Capsule Take 1 Cap by mouth 2 times a day as needed for Constipation. 60 Cap 5 denosumab (PROLIA) 60 MG/ML injection Inject 60 mg under the skin. 1 inj every 6 mo Acetaminophen ER 650 MG TBCR 1 tablet by mouth every 6 hours as needed for pain or fever 100 Tab 5 Polyvinyl Alcohol 1.4 % Ophthalmic Solution (Artificial Tears) Instill 2 Drops into both eyes as needed for Dry eyes. 15 mL 11 Desitin Maximum Strength 40 % External Paste (Zinc Oxide) Apply topically to affected area as needed for Dry Skin. Apply to gluteal cleft topically every shift for irritation guaiFENesin ER 600 MG Oral Tablet Extended Release 12 Hour (Humibid LA) Take 600 mg by mouth 2 times a day as needed for Cough or Congestion. Loperamide HCl 2 MG Oral Tablet (Imodium A-D) Take 2 mg by mouth. Give 2 tabs by mouth after first loose stool then 1 tablet by mouth every 6 hours as needed for each additional loose stool. Nystatin 323935 UNIT/GM External Powder (Nystop) Apply topically to affected area 3 times a day. Apply to groin 60 g 3 Menthol-Zinc Oxide 0.44-20.6 % External Ointment (Calmoseptine) Apply to right buttock open area twice daily until healed. 71 g 3 MEDICAL INSTRUCTIONS Apply Calmoseptine cream to right buttock open area twice daily until healed. 1 Each 1 MEDICAL INSTRUCTIONS Apply Optifoam 3x3 dressing to open area on buttock as needed. 1 Each 1 Clopidogrel Bisulfate 75 MG Oral Tablet (pLAVix) 1 TAB BY MOUTH EVERY DAY FOR CEREBROVASCULAR ACCIDENT 30 Tablet 5 Folic Acid 1 MG Oral Tablet Take by mouth 1 Tablet in the morning. 30 Tablet 4 Carvedilol 25 MG Oral Tablet (Coreg) TAKE 1 TAB BY MOUTH 2 TIMES A DAY. (MORNING/BEDTIME) FOR HYPERTENSION 180 Tablet 3 LORazepam 2 MG/ML Oral Concentrate (Ativan) Bisacodyl 10 MG Rectal Suppository (Dulcolax) Atropine Sulfate 1 % Ophthalmic Solution Promethazine HCl Powder Morphine Sulfate (Concentrate) 100 MG/5ML Oral Solution Pantoprazole Sodium 20 MG Oral Tablet Delayed Release (Protonix) 1 TAB BY MOUTH EVERY MORNING 30 Tablet 11 Atorvastatin Calcium 40 MG Oral Tablet (Lipitor) TAKE 1 TAB BY MOUTH DAILY. 30 Tablet 11 Tamsulosin HCl 0.4 MG Oral Capsule (Flomax) TAKE 1 CAPSULE (0.4 MG) BY MOUTH DAILY AT BEDTIME 90 Capsule 3 Aspirin 81 MG Oral Tablet Chewable (Aspirin Low Dose) 1 TAB BY MOUTH EVERY MORNING 30 Tablet 10 Furosemide 40 MG Oral Tablet (Lasix) Take once with morning pills and then a dose before dinner 60 Tablet 11 Ferrocite 324 MG Oral Tablet (Ferrous Fumarate) 1 TAB BY MOUTH TWICE DAILY - TAKE WITH FOOD 60 Tablet 10 Levothyroxine Sodium 75 MCG Oral Tablet (Levoxyl) TAKE 1 TAB BY MOUTH DAILY. (AT LEAST 30 MIN PRIORTO BREAKFAST OR OTHER MEDS) 30 Tablet 0 Amoxicillin 500 MG Oral Capsule (Amoxil) 4 CAPS (2000MG) BY MOUTH NEEDED PRIOR TO DENTAL APPT 4 Capsule 4 DULoxetine HCl 30 MG Oral Capsule Delayed Release Particles (Cymbalta) 1 CAP BY MOUTH EVERY [id number] Capsule 5 Finasteride 5 MG Oral Tablet (Proscar) TAKE 1 TABLET (5 MG) BY MOUTH DAILY 90 Tablet 3 No current facility-administered medications for this visit. Review of patient's allergies indicates: No Known Allergies Social History: Social History Tobacco Use Smoking status: Former Current packs/day: 3.00 Average packs/day: 3.0 packs/day for 5.0 years (15.0 ttl pk-yrs) Types: Cigarettes Smokeless tobacco: Never Substance Use Topics Alcohol use: Not Currently Comment: quit 12/28/08, alcoholic Vaping/E-Cigarette Use Vaping/E-Cigarette Use Never User Vaping/E-Cigarette Substances Vaping/E-Cigarette Devices Family History Problem Relation Name Age of Onset No Past Hx Mother age 82 ? causes Heart Disorder Father age 77 CAD Heart Disorder Brother CAD CABG @ age 54 No Past Hx Brother Past Surgical History: Procedure Laterality Date ARTHROPLASTY KNEE TOTAL TKR (Total Knee Replacement) bilateral COLONOSCOPY, DIAGNOSTIC (RECTUM) 12/31/06 hyperplastic polyp--repeat 10 years EGD, FLEXIBLE, DIAGNOSTIC 03/10/2014 Barretts, no recall EGD, FLEXIBLE, W/BIOPSY 07/25/08 Barretts esophagus, repeat EGD 2 years, helicobacter noted EGD, FLEXIBLE, W/BIOPSY 12/03/10 Epperson's esophagus, repeat in 3 yrs KNEE ARTHROSCOPY, DIAGNOSTIC Knee Arthroscopy and right bkaer's cyst excision MISCELLANEOUS ORDER ([facility] ONLY) 10/2013 partial right hip replacement after a fall REMOVE TONSILS & ADENOIDS, UNDER 12 Tonsillectomy/Adenoids,<12 Y/O STRESS TREADMILL 09/20/02 Cardiovascular Stress Test TOTAL HIP REPLACEMENT & PROSTHESIS Left 01/11/2018 noncemented le bipolar femoral endoprosthesis Dr. Bishop Past Medical History: Diagnosis Date Epperson's esophagus 07/25/2008 positive biopsy for Barretts esophagus--repeat EGD 2 years Benign neoplasm of colon 12/31/06 hyperplastic polyp--repeat 10 years Chronic ischemic heart disease Depression 2013 Jose Taylor MD geriatric psychiatry Dyslipidemia, goal LDL below 100 03/08/2011 Dyslipidemia, goal to be determined Femoral neck fracture (HCC) 10/28/13 right displaced femoral neck fracture: intertrabecular hemorrhage with fracture sight seen. The attached synovium reveals very focal mild chronic synovitis. No tumor seen. Clincal Hx of a right displaced femoaral neck fracture is noted. Dr. Romeo Generalized osteoarthritis of multiple sites Gout H. 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 right hemisphere, right internal capsule, left hemiplegia Patient Active Problem List Diagnosis No advance directive on file Benign neoplasm of colon Epperson's esophagus Alcoholic cirrhosis of liver (HCC) Gouty arthropathy HYPERTENSIVE HEART DZ Abnormality of gait Cerebrovascular disease, arteriosclerotic, post-stroke Sequela, post-stroke Dyslipidemia, goal LDL below 100 BPH with obstruction/lower urinary tract symptoms Atrial fibrillation (HCC) History of basal cell cancer Alcohol abuse, episodic Severe obstructive sleep apnea HTN, goal below 150/90 Abdominal aortic aneurysm (AAA) without rupture (HCC) Vascular dementia without behavioral disturbance (HCC) Paroxysmal atrial tachycardia (HCC) Recurrent major depressive disorder, in partial remission (HCC) Acquired hypothyroidism Alcoholic cirrhosis of liver without ascites (HCC) Patient has active physician orders for life-sustaining treatment (POLST) form Age-related osteoporosis without current pathological fracture Hemiplegia (HCC) Benign hypertension with stage 3b chronic kidney disease (HCC) Chronic kidney disease, stage 3b (HCC) Acute emphysematous 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 Calculus of gallbladder with chronic cholecystitis without obstruction Chronic systolic CHF (congestive heart failure) (HCC) Hospice care patient Hemiplegia and hemiparesis following unspecified cerebrovascular disease affecting unspecified side(HCC) Paroxysmal atrial fibrillation (HCC) Severe obesity with body mass index (BMI) of 35.0 to 39.9 with serious comorbidity (HCC) Benign hypertension with CKD (chronic kidney disease) stage III (HCC) Paroxysmal atrial fibrillation (HCC) Constitutional: (-) fever and (-) chills Eyes: (+) corrective lenses Male : see HPI Neurology: (+) generalized weakness Psychiatry: (+) poor speech Physical Exam Constitutional: General: He is not in acute distress. Appearance: He is not ill-appearing or toxic-appearing. HENT: Head: Normocephalic. Right Ear: External ear normal. Left Ear: External ear normal. Nose: Nose normal. Mouth/Throat: Mouth: Mucous membranes are moist. Eyes: Extraocular Movements: Extraocular movements intact. Cardiovascular: Pulses: Normal pulses. Pulmonary: Effort: No respiratory distress. Abdominal: General: There is no distension. Skin: Coloration: Skin is not pale. Neurological: Motor: Weakness present. Impression/Plan: 84-year-old male with a history of urinary tract infection, mixed incontinence. Findings reviewed with patient and daughter. At this point, the patient's quality of life is not primarily deteriorated by his voiding difficulties. Will continue maximal medical therapy with tamsulosin and finasteride to avoid Hernandez catheter placement which may initiate cycle of urinary tract infection. They can contact us with any significant changes in his baseline. Otherwise, will continue asis for the time being. Will see back in a year to check on progress and keep established as a patient for refills. Above content is personally reviewed. Patient vocalizes good understanding of the treatment plan. Anthony Art MD 3:51 PM 03/23/2024 documented in this encounter Plan of Treatment Health Maintenance Due Date Last Done Comments Zoster Vaccines (2 of 3) 02/22/2015 12/28/2014 COVID-19 Vaccine (2022-2 4 season) 2023 TSH 10/22/2024 10/22/2023, 07/0 12/2022, 10/22/2022, Additional history exists documented as of this encounter Medical Devices Not on filedocumented as of this encounter Visit Diagnoses Diagnosis Urinary frequency- Primary Urge incontinence of urine Urge incontinence BPH with obstruction/lower urinary tract symptoms Hypertrophy of prostate with urinary obstruction and other lower urinary tract symptoms (LUTS) History of UTI Personal history of urinary (tract) infection documented in this encounter Care Teams Junior Architect Relationship Specialty Start Date End Date Rosangela Felipe DO [address] [place] [address] PCP - General Family Medicine 12/16/18 documented as of this encounter
--- OUTSIDE RECORDS SUMMARY | 2024-05-20 05:25 | External Medical Summary ---
Author Name Unknown Address Unknown Organization [id number]:[facility] [place] [address] [place] [address] Laboratory Report Ordering Provider Test Date Status PIEDAD ALONZO 04/02/2024 06:50:00 Final Observation Date Value Abnormality Reference (Units ) Status Folic Acid 04/02/2024 06:50:00 >20.0 >4.5 (ng/ mL) Final Performing Location [facility] [place] [facility] [address] [facility] [place] [address]
--- OUTSIDE RECORDS SUMMARY | 2024-05-20 05:25 | External Medical Summary ---
Author Name Unknown Address Unknown Organization [id number]:LABORATORY [facility] [place] [address] [place] [address] Laboratory Report Ordering Provider Test Date Status PIEDAD ALONZO 04/02/2024 06:50:00 Final Observation Date Value Abnormality Reference (Units ) Status WBC, Total 04/02/2024 06:50:00 6.91 4.00-10.8 0 (K/uL) Final RBC 04/02/2024 06:50:00 4.51 4.50-5.25 (M/uL) Final Hemoglobin 04/02/2024 06:50:00 13.0 Below low normal 14 .0-16.8 (g/dL) Final HCT 04/02/2024 06:50:00 39.2 Below low normal 40. 0-48.4 (%) Final MCV 04/02/2024 06:50:00 86.9 82.0-99.5 (fL) Final MCH 04/02/2024 06:50:00 28.8 27.0-34.0 (pg) Final MCHC 04/02/2024 06:50:00 33.2 32.0-36.0 (g/dL) Final RDW 04/02/2024 06:50:00 14.5 11.5-15.5 (%) Final Platelets 04/02/2024 06:50:00 176 140-400 (K /uL) Final MPV 04/02/2024 06:50:00 10.9 6.6-11.1 ( fL) Final Performing Location [facility] [place] [address] [place] [address]
--- OUTSIDE RECORDS SUMMARY | 2024-05-20 05:25 | External Medical Summary ---
Author Name Unknown Address Unknown Organization [id number]:[facility] [place] [address] [place] [address] Laboratory Report Ordering Provider Test Date Status PIEDAD ALONZO 01/26/2024 06:30:00 Final Observation Date Value Abnormality Reference (Units ) Status Uric Acid 01/26/2024 06:30:00 11.3 Above high normal 3. 4-7.0 (mg/dL) Final Performing Location [facility] [place] [address] [place] [address]
--- OUTSIDE RECORDS SUMMARY | 2024-05-20 05:25 | External Medical Summary | Summary of Care ---
Author Name Unknown Organization [facility] Address [address] [facility] [place] [address] Phone [phone] Care Team Providers Care Cap Sizer Name Role Phone Ranjit Baird DO Primary Care Provider [phone] Reason for Visit * Reason Onset Date Comments Medication Refill 03/08/2024 Encounter Details Date Type Department Care Team (Late st Contact Info) Description 03/08/2024 Refill Urology Joshua Ochoa [address] [place] [address] [place] [address] Anthony Art MD [address] [place] [address] [place] [address] Allergies No known active allergiesdocumented as of this encounter (statuses as of 03/08/2024) Medications Medication Sig Dispensed Refills Start Date [...] for each additional loose stool. Active Nystatin 701162 UNIT/GM External Powder (Nystop) Apply topically to [...] CEREBROVASCULAR ACCIDENT 30 Tablet 5 2 Active DULoxetine HCl 30 MG Oral Capsule Delayed Release Particles (Cymbalta)Indicat ions:Recurrent major depressive disorder, in partial remission (HCC) TAKE 1 CAP BY MOUTH DAILY 30 Capsule 5 2 Active Folic Acid 1 MG [...] MOUTH DAILY. 30 Tablet 11 2 Active Tamsulosin HCl 0.4 MG Oral Capsule (Flomax)Indicatio ns:Urinary frequency TAKE 1 CAPSULE (0.4 MG) BY MOUTH DAILY AT BEDTIME 90 Capsule 3 2 Active Aspirin 81 MG Oral Tablet [...] DENTAL APPT 4 Capsule 4 3 Active Finasteride 5 MG Oral Tablet (Proscar) TAKE 1 TABLET (5 MG) BY MOUTH DAILY 90 Tablet 3 4 Active Finasteride 5 MG Oral Tablet (Proscar) TAKE 1 TABLET (5 MG) BY MOUTH DAILY 90 Tablet 3 3 03/08/20 24 Discontinu ed(Refill) documented as of this encounter (statuses as of 03/08/2024) Active Problems Problem Noted Date Diagnosed Date [...] as of this encounter (statuses as of 03/08/2024) Resolved Problems Problem Noted Date Diagnosed Date [...] as of this encounter (statuses as of 03/08/2024) Immunizations Name Administration Dates Next Due Pneumococcal [...] encounter Miscellaneous Notes * Telephone Encounter - Anthony Art MD - 03/08/2024 7:57 AM EDTSigned Prescriptions: Disp Refills Finasteride 5 MG Oral Tablet (Proscar) 90 Tab*3 Sig: TAKE 1 TABLET (5 MG) BY MOUTH DAILYAuthorizing Provider: ANTHONY ART documented in this encounter Plan of Treatment Upcoming Encounters Date Type Department Care Team (Late st Contact Info) Description 03/23/2024 3:45 PM EDT Telemedicine Urology Joshua Ochoa [address] [place] [address] [place] [address] Anthony Art MD [address] [place] [address] [place] [address] Health Maintenance Due Date Last Done Comments Zoster Vaccines (2 of 3) 02/22/2015 12/28/2014 COVID-19 Vaccine (2022-2 4 season) 2023 TSH 10/22/2024 10/22/2023, 07/0 12/2022, 10/22/2022, Additional history exists documented as of this encounter Medical Devices Not on filedocumented as of this encounter Care Teams Cap Sizer Relationship Specialty Start Date End Date Ranjit Baird DO [address] [place] [address] PCP - General Family Medicine 12/16/18 documented as of this encounter
--- OUTSIDE RECORDS SUMMARY | 2024-05-20 05:25 | External Medical Summary ---
Author Name Unknown Address Unknown Organization [id number]:[facility]ATORY [facility] [place] - [address] [place] [address] Laboratory Report Ordering Provider Test Date Status PIEDAD ALONZO 04/02/2024 06:50:00 Final Observation Date Value Abnormality Reference (Units ) Status Vitamin B12 04/02/2024 06:50:00 168 [id number] (pg/mL) Final Performing Location [facility] [place] [facility] [address] [place] [address]
--- OUTSIDE RECORDS SUMMARY | 2024-05-20 05:25 | External Medical Summary ---
Author Name Unknown Address Unknown Organization [id number]:[facility] [place] [facility] [place] [address] [place] [address] [place] [address] Laboratory Report Ordering Provider Test Date Status PIEDAD ALONZO 04/02/2024 06:50:00 Final Observation Date Value Abnormality Reference (Units ) Status TSH 04/02/2024 06:50:00 4.86 Above high normal 0. 27-4.20 (uIU/mL) Final Performing Location [facility] [place] [facility] [place] [address] [place] [address]
--- OUTSIDE RECORDS SUMMARY | 2024-05-20 05:25 | External Medical Summary ---
Author Name Unknown Address Unknown Organization [id number]:[facility] [place] - [address] [facility] [place] [address] Laboratory Report Ordering Provider Test Date Status PIEDAD ALONZO 04/02/2024 06:50:00 Final Observation Date Value Abnormality Reference (Units ) Status Triglyceride 04/02/2024 06:50:00 105 <=174 ( mg/dL) Final Triglyceride Reference Range s (mg/dL):
<150 Acceptable
150-174 Borderline high
175-499 High
>=500 Very high Cholesterol 04/02/2024 06:50:00 133 <200 (mg /dL) Final Total Cholesterol Reference Ranges (mg/dL):
<200 Desirable
200-239 Borderline high
>=240 High HDL 04/02/2024 06:50:00 34 Below low normal >39 (mg/dL) Final HDL Cholesterol Reference Ra nges (mg/dL):
>=60 High (Desirable)
<50 Low (Undesirable) For Females
<40 Low (Undesirable) For Males NON-HDL CHOLESTEROL 04/02/2024 06:50:00 99 <=159 (mg/dL) Final Non-HDL Cholesterol Referenc e Range (mg/dL):
<100 Target level for high risk ASCVD patient
<130 Optimal for general population
130-159 Near optimal for general population
160-189 Borderline High
190-219 High
>=220 Very High LDL, (calculated) 04/02/2024 06:50:00 78 <= 129 (mg/dL) Final LDL Cholesterol Reference Ra nges (mg/dL):
<70 Target level for high risk ASCVD patient
<100 Optimal for general population
100-129 Near optimal for general population
130-159 Borderline high
160-189 High
>=190 Very high Performing Location LAB[facility]ATORY [facility] [place] - [address] [place] [address]
--- OUTSIDE RECORDS SUMMARY | 2024-05-20 05:25 | External Medical Summary | Summary of Care ---
Author Name Unknown Organization [facility] Address [address] [facility] [place] [address] Phone [phone] Care Team Providers Care Willow Worker Name Role Phone Ranjit Baird DO Primary Care Provider [phone] Reason for Visit * Reason Onset Date Comments Appointment 03/24/2024 Encounter Details Date Type Department Care Team (Late st Contact Info) Description 03/24/2024 Telephone Urology Joshua Ochoa [address] [place] [address] [place] [address] Anthony Art MD [address] [place] [address] [place] [address] Appointment Allergies No known active allergiesdocumented as of this encounter (statuses as of 03/24/2024) Medications Medication Sig Dispensed Refills Start Date [...] for each additional loose stool. Active Nystatin 018349 UNIT/GM External Powder (Nystop) Apply topically to [...] as of this encounter (statuses as of 03/24/2024) Active Problems Problem Noted Date Diagnosed Date [...] as of this encounter (statuses as of 03/24/2024) Resolved Problems Problem Noted Date Diagnosed Date [...] as of this encounter (statuses as of 03/24/2024) Immunizations Name Administration Dates Next Due Pneumococcal [...] encounter Miscellaneous Notes * Telephone Encounter - Pina Palumbo MED ASSIST - 03/24/2024 1:02 PM EDT Pt is scheduled for a 1 yr video appt. Left detailed vm with date and time. * Telephone Encounter - Pina Palumbo MED ASSIST - 03/24/2024 1:02 PM EDT ----- Message from Anthony Art MD sent at 03/23/2024 3:59 PM EDT ----- Regarding: One year telehealth Please set patient up for 1 year telehealth office visit. Thanks, HM documented in this encounter Plan of Treatment Upcoming Encounters Date Type Department Care Team (Late st Contact Info) Description 03/25/2025 10:30 AM EDT Telemedicine Urology Joshua Ochoa [address] [place] [address] [place] [address] Anthony Art MD [address] [place] [address] [place] [address] Health Maintenance Due Date Last Done Comments Zoster Vaccines (2 of 3) 02/22/2015 12/28/2014 COVID-19 Vaccine (2022-2 4 season) 2023 TSH 10/22/2024 10/22/2023, 07/0 12/2022, 10/22/2022, Additional history exists documented as of this encounter Medical Devices Not on filedocumented as of this encounter Care Teams Willow Worker Relationship Specialty Start Date End Date Ranjit Baird DO [address] [place] [address] PCP - General Family Medicine 12/16/18 documented as of this encounter
--- OUTSIDE RECORDS SUMMARY | 2024-05-20 05:25 | External Medical Summary ---
Author Name Unknown Address Unknown Organization [id number]:[facility] [place] [address] [place] [address] Laboratory Report Ordering Provider Test Date Status PIEDAD ALONZO 04/02/2024 06:50:00 Final Observation Date Value Abnormality Reference (Units ) Status Ferritin 04/02/2024 06:50:00 540 Above high normal 30 -400 (ng/mL) Final Performing Location [facility] [place] [address] [place] [address]
--- OUTSIDE RECORDS SUMMARY | 2024-05-20 05:25 | External Medical Summary ---
Author Name Unknown Address Unknown Organization [id number]:[facility] [address] [place] [address] Laboratory Report Ordering Provider Test Date Status PIEDAD ALONZO 04/02/2024 06:50:00 Final Observation Date Value Abnormality Reference (Units ) Status BUN 04/02/2024 06:50:00 41 Above high normal 6-20 (mg/dL) Final Creatinine 04/02/2024 06:50:00 2.3 Above high normal 0.6-1.2 (mg/dL) Final Glomerular filtration rate/1.73 sq M.predicted [Volume Rate/Area] in Serum, Plasma or Blood by Creatinine-based formula (CKD-EPI) 04/02/2024 06:50:00 28 Below low normal >=60 (mL/min) Final eGFR is calculated based on the CKD-EPI 2020 equation Sodium 04/02/2024 06:50:00 143 135-146 (m mol/L) Final Potassium 04/02/2024 06:50:00 4.5 3.5-5.1 (m mol/L) Final Cl 04/02/2024 06:50:00 106 98-107 (mm ol/L) Final CO2 04/02/2024 06:50:00 28 22-32 (mmo l/L) Final Anion gap 04/02/2024 06:50:00 9 7-15 (mmol /L) Final Glucose 04/02/2024 06:50:00 122 Above high normal 70 -120 (mg/dL) Final Albumin 04/02/2024 06:50:00 3.6 Below low normal 3.8 -5.0 (g/dL) Final AST (Aspartate aminotransferase) 04/02/2024 06:50:00 18 10-50 (U/L) Fin al Alk Phos 04/02/2024 06:50:00 91 35-130 (U/ L) Final Bilirubin, Total 04/02/2024 06:50:00 0.4 <=1 .2 (mg/dL) Final Calcium 04/02/2024 06:50:00 8.5 8.4-10.2 ( mg/dL) Final Protein 04/02/2024 06:50:00 5.8 Below low normal 6.0 -8.3 (g/dL) Final ALT (Alanine aminotransferase) 04/02/2024 06:50:00 19 10-50 (U/L) Bernardo clark Performing Location [facility] [place] [address] [facility] [address]
--- OUTSIDE RECORDS SUMMARY | 2024-05-20 05:25 | External Medical Summary ---
Author Name Unknown Address Unknown Organization [id number]:[facility] [place] [address] [place] [address] Laboratory Report Ordering Provider Test Date Status PIEDAD ALONZO 04/02/2024 06:50:00 Final Deficient: <20 ng/mL
Ins ufficient: 20-29 ng/mL
Recommended/Optimum:30-50 ng/mL

Vitamin D intoxication is rare. If suspicious of Vitamin D toxicity, evaluation of serum Calcium and PTH is recommended. Observation Date Value Abnormality Reference (Units ) Status 25-OH Vitamin D total 04/02/2024 06:50:00 38 >19 (ng/mL) Final Performing Location [facility] - [address] [place] [address]
--- OUTSIDE RECORDS SUMMARY | 2024-05-20 05:25 | External Medical Summary | Summary of Care ---
Author Name Unknown Organization [facility] Address [address] [facility] [place] [address] Phone [phone] Care Team Providers Care Operations Support Coordinator Name Role Phone Rosangela Felipe DO Primary Care Provider [phone] Reason for Visit * Reason Comments eRx-Medication Refill Encounter Details Date Type Department Care Team (Late st Contact Info) Description 03/05/2024 Refill Family Practice [facility] [place] [address] [facility] [place] [address] Rosangela Felipe DO [address] [facility] [place] [address] Recurrent major depressive disorder, in partial remission (HCC) Allergies No known active allergiesdocumented as of this encounter (statuses as of 03/08/2024) Medications Medication Sig Dispensed Refills Start Date End Date Status docusate sodium (COLACE) 100 MG Capsule Take 1 Cap by mouth 2 times a day as needed for Constipation. 60 Cap 5 02/17/20 19 Active denosumab (PROLIA) 60 MG/ML injection Inject 60 mg under the skin. 1 inj every 6 mo Active Acetaminophen ER 650 MG TBCR 1 tablet by mouth every 6 hours as needed for pain or fever 100 Tab 5 08/11/20 19 Active Polyvinyl Alcohol 1.4 % Ophthalmic Solution (Artificial Tears) Instill 2 Drops into both eyes as needed for Dry eyes. 15 mL 11 11/28/19 21 Active Desitin Maximum Strength 40 % External [...] for each additional loose stool. Active Nystatin 162716 UNIT/GM External Powder (Nystop) Apply topically to affected area 3 times a day. Apply to groin 60 g 3 05/15/20 21 Active Menthol-Zinc Oxide 0.44-20.6 % External Ointment (Calmoseptine) Apply to right buttock open area twice daily until healed. 71 g 3 06/26/20 21 Active MEDICAL INSTRUCTIONS Apply Calmoseptine cream to right buttock open area twice daily until healed. 1 Each 1 06/26/20 21 Active MEDICAL INSTRUCTIONS Apply Optifoam 3x3 dressing to open area on buttock as needed. 1 Each 1 07/23/20 21 Active Clopidogrel Bisulfate 75 MG Oral Tablet (pLAVix)Indicati ons:Atrial fibrillation (HCC) 1 TAB BY MOUTH EVERY DAY FOR CEREBROVASCULAR ACCIDENT 30 Tablet 5 11/21/19 22 Active Folic Acid 1 MG Oral TabletIndication s:Anemia, unspecified type Take by mouth 1 Tablet in the morning. 30 Tablet 4 03/29/20 22 Active Carvedilol 25 MG Oral Tablet (Coreg)Indicatio ns:Hypertensive heart disease TAKE 1 TAB BY MOUTH 2 TIMES A DAY. (MORNING/BEDTIME) FOR HYPERTENSION 180 Tablet 3 05/03/20 22 Active LORazepam 2 MG/ML Oral Concentrate (Ativan) 04/12/20 22 Active Bisacodyl 10 MG Rectal Suppository (Dulcolax) 04/12/20 22 Active Atropine Sulfate 1 % Ophthalmic Solution 04/12/20 22 Active Promethazine HCl Powder 04/12/20 22 Active Morphine Sulfate (Concentrate) 100 MG/5ML Oral Solution 04/12/20 22 Active Pantoprazole Sodium 20 MG Oral Tablet Delayed Release (Protonix) 1 TAB BY MOUTH EVERY MORNING 30 Tablet 11 05/22/20 22 Active Atorvastatin Calcium 40 MG Oral Tablet (Lipitor)Indicat ions:Dyslipidemi a, goal LDL below 100 TAKE 1 TAB BY MOUTH DAILY. 30 Tablet 11 05/22/20 22 Active Tamsulosin HCl 0.4 MG Oral Capsule (Flomax)Indicati ons:Urinary frequency TAKE 1 CAPSULE (0.4 MG) BY MOUTH DAILY AT BEDTIME 90 Capsule 3 08/29/20 22 Active Aspirin 81 MG Oral Tablet Chewable (Aspirin Low Dose) 1 TAB BY MOUTH EVERY MORNING 30 Tablet 10 01/09/20 23 Active Furosemide 40 MG Oral Tablet (Lasix)Indicatio ns:Chronic systolic CHF (congestive heart failure) (HCC) Take once with morning pills and then a dose before dinner 60 Tablet 11 12/19/19 23 Active Ferrocite 324 MG Oral Tablet (Ferrous Fumarate) 1 TAB BY MOUTH TWICE DAILY - TAKE WITH FOOD 60 Tablet 06/12/20 23 Active Levothyroxine Sodium 75 MCG Oral Tablet (Levoxyl) TAKE 1 TAB BY MOUTH DAILY. (AT LEAST 30 MIN PRIOR TO BREAKFAST OR OTHER MEDS) 30 Tablet 06/16/20 23 Active Amoxicillin 500 MG Oral Capsule (Amoxil) 4 CAPS (2000MG) BY MOUTH NEEDED PRIOR TO DENTAL APPT 4 Capsule 4 06/16/20 23 Active DULoxetine HCl 30 MG Oral Capsule Delayed Release Particles (Cymbalta)Indica tions:Recurrent major depressive disorder, in partial remission (HCC) 1 CAP BY MOUTH EVERY MORNING 30 Capsule 5 03/08/20 24 Active DULoxetine HCl 30 MG Oral Capsule Delayed Release Particles (Cymbalta)Indica tions:Recurrent major depressive disorder, in partial remission (HCC) TAKE 1 CAP BY MOUTH DAILY 30 Capsule 5 12/13/19 22 024 Discontinued Finasteride 5 MG Oral Tablet (Proscar) TAKE 1 TABLET (5 MG) BY MOUTH DAILY 90 Tablet 3 12/16/19 23 024 Discontinued(Re fill) documented as of this encounter (statuses as [...] Telephone Encounter - Rosangela Felipe DO - 03/08/2024 12:58 PM EDTSigned Prescriptions: Disp Refills DULoxetine HCl 30 MG Oral Capsule Delayed *30 Cap*5 Si CAP BY MOUTH EVERY MORNING Authorizing Provider: ROSANGELA FELIPE Refused Prescriptions: Disp Refills Finasteride 5 MG Oral Tablet (Proscar) 30 Tab*11 Si TAB BY MOUTH EVERY MORNING Refused By: SIMONA GARCIA Reason for Refusal: Managed by another physician * Telephone Encounter - Rosangela Felipe DO - 03/08/2024 12:58 PM EDTSigned Prescriptions: Disp Refills DULoxetine HCl 30 MG Oral Capsule Delayed *30 Cap*5 Si CAP BY MOUTH EVERY MORNING Authorizing Provider: ROSANGELA FELIPE Refused Prescriptions: Disp Refills Finasteride 5 MG Oral Tablet (Proscar) 30 Tab*11 Si TAB BY MOUTH EVERY MORNING Refused By: SIMONA GARCIA Reason for Refusal: Managed by another physician * Telephone Encounter - Christina Lara, web sizer - 03/08/2024 8:42 AM EDT Pending Prescriptions: Disp Refills DULoxetine HCl 30 MG Oral Capsule Delayed *30 Cap*0 Si CAP BY MOUTH EVERY MORNING Refused Prescriptions: Disp Refills Finasteride 5 MG Oral Tablet (Proscar) 30 Tab*11 Si TAB BY MOUTH EVERY MORNING Refused By: SIMONA GARCIA Reason for Refusal: Managed by another physician * Telephone Encounter - Christina Lara PHARM Tech - 03/08/2024 8:40 AM EDT Received message from [facility] regarding patient needing appointment. Call Placed, Left message on voicemail to call back and schedule appointment. Thank you for your assistance Christina Lara [employer] [facility] (Formerly [facility]) 03/08/2024,8:40 AM * Telephone Encounter - Simona Garcia [facility] - 03/08/2024 5:46 AM EDT Please contact patient so that an appointment can be scheduled with his PRIMARY CARE provider before this refill can be authorized. After contacting patient, please forward request to Rosangela Felipe DO. Last Visit: 05/01/2022 (in office), 10/18/2020 (telemedicine) Next Visit: Visit date not found Thank you, Simona Garcia, Amber. Clinical Pharmacist [facility] ([facility]) (formerly Telepharmacy) 03/08/2024, 5:46 AM * Telephone Encounter - Simona Garcia [facility] - 03/08/2024 5:46 AM EDT Pending Prescriptions: Disp Refills DULoxetine HCl 30 MG Oral Capsule Delayed *30 Cap*5 Si CAP BY MOUTH EVERY MORNING Refused Prescriptions: Disp Refills Finasteride 5 MG Oral Tablet (Proscar) 30 Tab*11 Si TAB BY MOUTH EVERY MORNING Refused By: SIMONA GARCIA Reason for Refusal: Managed by another physician * Telephone Encounter - Simona Garcia RPh - 03/08/2024 5:44 AM EDT Last prescribed nov 2021 for 6 mo supply. Forwarding to pcp documented in this encounter Plan of Treatment Upcoming Encounters Date Type Department Care Team (Late st Contact Info) Description 03/23/2024 3:45 PM EDT Telemedicine Urology Joshua Ochoa [address] [place] [address] [place] [address] Anthony Art MD [address] [place] [address] [place] [address] Health Maintenance Due Date Last Done Comments Zoster Vaccines (2 of 3) 02/22/2015 12/28/2014 COVID-19 Vaccine (2022-2 4 season) 2023 TSH 10/22/2024 10/22/2023, 0712/2022, 10/22/2022, Additional history exists documented as of this encounter Medical Devices Not on filedocumented as of this encounter Visit Diagnoses Diagnosis Recurrent major depressive disorder, in partial remission (HCC) documented in this encounter Care Teams Operations Support Coordinator Relationship Specialty Start Date End Date Rosangela Felipe DO [address] [place] [address] PCP - General Family Medicine 12/16/18 documented as of this encounter
[2024-05-20] MEDS ORDERED: [UNRECOGNIZED DRUG - OTHER] TOP PRN (06:42)
[2024-05-20] MEDS ORDERED: ACETAMINOPHEN 325 MG TAB PO PRN (06:42)
[2024-05-20] MEDS ORDERED: MENTHOL-ZINC OXIDE 360 APPLN/120 GM TUBE EXT PRN (06:42)
[2024-05-20] MEDS ORDERED: NITROGLYCERIN SL 0.4 MG/TAB TAB SL PRN (06:42)
[2024-05-20 07:54] LABS: Basophils # (auto) 0.01 K/uL (0.00-0.20); Basophils % (auto) 0.1 %; Hematocrit (blood only) 34.4 % (42.0-52.0); Hemoglobin 11.5 g/dl (14.0-18.0); Immature Granulocytes # (auto) 0.04 K/uL (0.01-0.20); Immature Granulocytes % (auto) 0.5 %; Lymphocytes # (auto) 0.46 K/uL (1.20-3.40); Lymphocytes % (auto) 6.2 %; Mean Corpuscular Hemoglobin 28.3 pg (25.0-34.0); Mean Corpuscular Hgb Conc 33.4 g/dL (32.0-36.0); Mean Corpuscular Volume 84.7 fL (80.0-100.0); Mean Platelet Volume 10.7 fL (9.4-12.4); Monocytes # (auto) 0.44 K/uL (0.11-0.59); Monocytes % (auto) 5.9 %; Neutrophils # (auto) 6.52 K/uL (1.40-6.50); Neutrophils % (auto) 87.3 %; Platelet Count 147 K/uL (130-400); RDW Standard Deviation 43.8 fL (36.4-46.3); Red Blood Count 4.06 M/uL (4.70-6.10); White Blood Count 7.47 K/ul (4.8-10.8)
[2024-05-20 08:12] LABS: BUN Creatinine Ratio 20.5 (10-20); Creatinine Clr Calc Pharmacy 32.1 ml/min; Est GFR (African American) 30.3 ml/min; Est GFR (Non-African American) 26.2 ml/min; Magnesium 1.7 mg/dl (1.7-2.4); Potassium 3.8 mmol/L (3.5-5.1)
--- NOTE | 2024-05-20 08:28 | XRay Report ---
XR chest 1V portable HISTORY: 84 years-old Male Trauma, pneumonia acute chest trauma. COMPARISON: Chest CT of same day, chest radiograph 04/22/2023. TECHNIQUE: AP view of the chest FINDINGS: Cardiac silhouette is enlarged. Atherosclerosis of the aorta. Trace pleural effusions. Mild right hem idiaphragmatic elevation with subsegmental bibasilar densities. Degenerative changes of the shoulders and spine. No acute displaced rib fracture identified. Healing subacute fracture of the posterior me dial right 12th rib seen by CT, not visualized by radiography. IMPRESSION: 1. Cardiomegaly without overt pulmonary edema. 2. Trace pleural effusions with mild bibasilar atelectasis. 3. Unchanged right hemidiaphragmatic elevation. ACT 112: Negative or not required by law. The above report was generated using voice recognition software. It may contain grammatical, syntax o r spelling errors. Electronically signed by: Nelson Michaels M.D. 05/20/2024 8:27 AM
[2024-05-20] MEDS: BUTT PASTE (ZINC OXIDE 16%) 171 APPLN/57 GM JAR TOP SCH ×2 (08:36→15:37)
[2024-05-20] MEDS: allopurinoL 100 MG TAB PO SCH (08:36)
[2024-05-20] MEDS: POTASSIUM CHLORIDE CRTAB 20 MEQ TABCR PO SCH (08:38)
[2024-05-20] MEDS: FERROUS GLUCONATE 324 MG TAB PO SCH (08:38)
[2024-05-20] MEDS: LEVOTHYROXINE SODIUM 75 MCG TABLET PO SCH (08:38)
[2024-05-20] MEDS: DULoxetine HCL 30 MG CAP PO SCH (08:38)
[2024-05-20] MEDS: FOLIC ACID 1 MG TAB PO SCH (08:38)
[2024-05-20] MEDS: carvediloL 25 MG TAB PO SCH (08:38)
[2024-05-20] MEDS: PSYLLIUM or GUAR GUM FIBER 4GM PACKET PO SCH (08:39)
[2024-05-20] MEDS: SODIUM CHLORIDE 0.9% 1,000 ML IV SCH (08:41)
--- NOTE | 2024-05-20 09:14 | Communication Note ---
Date of Service: May 20, 2024 Received notification of Neurology consultation request for patient 84yo male unfortunately having more frequent falls and reportedly suffered unwitnessed f all at local care facility. He has hx of dementia and currently DNR/DNI. Per documentation review family has elected for no aggressive intervention and possibly comfort care if intracranial hemorrhage worsens; as he was found to have small area of likely traumatic hemorrhage right temporal horn. He is reportedly at his baseline as per last documentation review. CT brain with AM, personally reviewed appears stable to slightly increased blood volume versus blood settling Recommend try to keep HOB elevated as tolerated Recommend continue to monitor mentation/neurological assessments Obtain CT brain without contrast for any acute neurological decline Hold full anticoagulation, ASA, NSAIDs and antiplatelet medications Keep SBP < 160 in setting of traumatic ICH Follow up CT brain without contrast as tolerated Continue to monitor/control blood glucose SCDs as VTE prophylaxis
--- NOTE | 2024-05-20 09:42 | CT Scan Report ---
HEAD CT NONCONTRAST CT DOSE: HISTORY: Follow-up intracranial hemorrhage. TECHNIQUE: Multiaxial CT images of the head were performed without the use of intravenous contrast. A utomated exposure control was utilized for this study. A dose lowering technique was utilized adheri ng to the principles of ALARA. Comparison: Head CT 05/20/2024. Findings: The paranasal sinuses and mastoid air cells are clear. The calvarium and skull base are int act. There is right frontal scalp swelling. Motion artifact results in suboptimal evaluation of the b rain. Mild to moderate atrophic changes most pronounced within the cerebellum again noted. There is n o midline shift or acute infarct. 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 Microvascular ischemic changes are present. Slight increase in size within the intraventricular hem orrhage located within the temporal and occipital horns of the right lateral ventricle. Impression: Slight increase in size within the intraventricular hemorrhage located within the temporal and occipi tracy horns of the right lateral ventricle. ACT 112: Negative or not required by law. Electronically signed by: Merrick Boykin M.D. 05/20/2024 9:40 AM
--- NOTE | 2024-05-20 09:49 | CT Scan Report ---
CT chest diagnostic wo con CT DOSE: 2172.96 mGy.cm CLINICAL HISTORY: 84 years-old Male with infiltrates?. Acute shortness of breath TECHNIQUE: Multiaxial CT images of the chest were performed without contrast. A dose lowering techni que was utilized adhering to the principles of ALARA. COMPARISON: Chest radiograph of same day, CTA chest 10/26/2013, CT abdomen and pelvis 03/20/2021 FINDINGS: No thyroid nodule or lymphadenopathy identified. Cardiomegaly with small pericardial effusi on. Extensive urinary artery calcifications. Atherosclerosis of the aorta without aneurysm. Trace pleural effusions. Respiratory motion artifact and upper extremity positioning limits this stud y. Mild intralobular septal thickening with subsegmental patchy bibasilar consolidation. Calcified gr anuloma of the basal left lower lobe. There are no suspicious pulmonary nodules or masses. Chronic ri ght hemidiaphragmatic elevation. Central airways are patent. Gynecomastia. No acute upper abdominal abnormality. Healing subacute nondisplaced fracture of the pos terior medial right 12th rib. No acute displaced fracture identified. Degenerative changes of the arielle ulders and spine. IMPRESSION: 1. Cardiomegaly with mild interstitial pulmonary edema and trace pleural effusions. 2. Mild bibasilar atelectasis. 3. Healing subacute nondisplaced 12th rib fracture. 4. Small pericardial effusion. ACT 112: Negative or not required by law. Electronically signed by: Nelson Michaels M.D. 05/20/2024 9:47 AM
[2024-05-20] MEDS: PANTOprazole 40 MG TAB PO SCH (10:03)
[2024-05-20] MEDS: FINASTERIDE 5 MG TAB PO SCH (10:03)
[2024-05-20] MEDS: MULTIVITAMIN TAB PO SCH (10:03)
--- NOTE | 2024-05-20 13:15 | Communication Note ---
Date of Service: May 20, 2024 Evaluated patient at bedside Pleasant and eager to participate in conversation. Oriented to self. Denies any pain or acute concerns. No Focal neuro deficits appreciated Reviewed Neurology recommendations, will do CT in am for follow up and stability. PT/OT ordered Avoid all AC, including d/c asa and plavix UA questionable--transition to cefepime 2/2 pseudomonal hx Given fall and reported progressive weakness, will order B12, folate, TSH
[2024-05-20] MEDS: CEFEPIME 2,000 MG in SYRINGE 0 ML IV SCH (15:36)
[2024-05-20] MEDS ORDERED: DOXYCYCLINE HYCLATE 100 MG in DEXTROSE 5% MINI-B 100 ML IV SCH (16:00)
[2024-05-20] MEDS: TAMSULOSIN HCL 0.4 MG CAP PO SCH (20:40)
[2024-05-20] MEDS: ATORVASTATIN 40 MG TAB PO SCH (20:41)
[2024-05-20] MEDS ORDERED: cefTRIAXone SODIUM 2,000 MG/50 ML BAG IV SCH (22:30)
[2024-05-21 06:18] LABS: Hematocrit (blood only) 35.7 % (42.0-52.0); Hemoglobin 12.1 g/dl (14.0-18.0); Mean Corpuscular Hemoglobin 28.5 pg (25.0-34.0); Mean Corpuscular Hgb Conc 33.9 g/dL (32.0-36.0); Mean Platelet Volume 10.5 fL (9.4-12.4); Platelet Count 137 K/uL (130-400); RDW Coefficient of Variation 14.2 % (11.5-14.5); RDW Standard Deviation 43.6 fL (36.4-46.3); Red Blood Count 4.25 M/uL (4.70-6.10)
[2024-05-21 06:29] LABS: Calcium 8.3 mg/dl (8.6-10.3); Creatinine Clr Calc Pharmacy 32.4 ml/min; Est GFR (African American) 30.6 ml/min; Est GFR (Non-African American) 26.4 ml/min; Magnesium 1.7 mg/dl (1.7-2.4); Phosphorus 3.5 mg/dl (2.5-4.9); Potassium 3.7 mmol/L (3.5-5.1)
[2024-05-21 06:46] LABS: Thyroid Stimulating Hormone 4.828 uIu/ml (0.300-4.500)
[2024-05-21 06:56] LABS: Folate (Folic Acid),Ser orPlas > 22.30 ng/ml (>5.38)
[2024-05-21 06:57] LABS: Vitamin B12 323 pg/ml (180-914)
[2024-05-21 07:20] LABS: T4 Free Thyroxine 1.06 ng/dl (0.61-1.60)
--- NOTE | 2024-05-21 10:49 | CT Scan Report ---
CT head/brain wo con CLINICAL HISTORY: 84 years-old Male with follow up ICH stability. Acute head trauma TECHNIQUE: Multiple axial CT images of the head were obtained without contrast. A dose lowering tech nique was utilized adhering to the principles of ALARA. CT DOSE: 1499.97 mGy.cm COMPARISON: 05/20/2024 FINDINGS: The paranasal sinuses and mastoid air cells are clear. The calvarium and skull base are intact. There is right frontal scalp swelling. Motion artifact results in suboptimal evaluation of the brain. Mild to moderate atrophic changes most pronounced within the cerebellum again noted. There is no midline shift or acute infarct. There are old lacunar infarcts within the basal ganglia again noted. Microvas cular ischemic changes are present. Stable intraventricular hemorrhage located within the temporal an d occipital horns of the right lateral ventricle. IMPRESSION: Unchanged right lateral intraventricular hemorrhage. ACT 112: Negative or not required by law. The above report was generated using voice recognition software. It may contain grammatical, syntax o r spelling errors. Electronically signed by: Nelson Michaels M.D. 05/21/2024 10:48 AM
--- NOTE | 2024-05-21 11:05 | Hospitalist Progress Note ---
Date of Service May 21, 2024 Assessment & Plan (1) Brain bleed: Plan: Mr. Demarco is an 84-year-old male who is a resident of the [facility] with past medical history significant for hyperlipidemia, hypothyroidism, obstructive sleep apnea nontolerant of CPAP, CVA, atrial fibrillation, abdominal aortic aneurysm, paroxysmal atrial tachycardia, chronic systolic CHF, hypertension, CKD stage III, BPH, Epperson's esophagus, alcoholic cirrhosis of liver, history of acute emphysematous cholecystitis, obesity, gout, osteoporosis, vascular dementia,, depression, admitted for monitoring of intraventricular bleed. Repeat imaging has remain stable. UA revealed concerns for infection with GNB. Patient continuing on cefepime at this time. Patient will likely return to [facility] with rehab over the weekend. #Intraventricular hemorrhage s/p mechanical fall #Right frontal scalp hematoma #Hx of lacunar infarcts #Vascular dementia Bruise on the right forehead CT head showing" Asymmetric intraventricular hemorrhage is noted involving the right temporal horn. No definite intraparenchymal hemorrhagic changes noted. No significant mass effect or midline shift"; repeat imaging on 05/21 stable PT/OT Supportive care Discontinue ASA/Plavix Continue statin #Acute cystitis UA with GNB Continue cefepime at this time Transition to PO as able #HTN Continue on coreg Consider low dose amlodipine however, pressure fluctuate #Hypothyroidism On Synthyroid #Sleep apnea Nontolerant of CPAP #Paroxsymal a-fib On Coreg Holding aspirin and Plavix #Chronic systolic and diastolic CHF On Coreg Echo EF 40 to 45% when he was admitted to [facility] for sepsis secondary UTI and emphysematous cystitis as per cardiology notes Monitor for volume overload. #GERD Epperson's esophagus On Protonix #Gout On allopurinol #History of alcoholic cirrhosis Will monitor for volume overload #BPH On Flomax and finasteride #CKD stage III Baseline creatinine 2.1-2.3 remains stable DVT prophylaxis SCDs Disposition Med/telemetry CODE STATUS DNR/DNI Admission and Anticipated Discharge Date Admission Date: May 20, 2024 Subjective NAEO Called daughter for updates, plan for likely rehab on Friday after narrowing abx Physical Exam Constitutional: WD/WN, vitals as above Respiratory: normal respiratory effort, lungs clear to auscultation Cardiovascular: RRR, no murmur, no edema Gastrointestinal (Abdomen): normal bowel sounds, soft, nontender, no hepatosplenomegaly Results & Data Results & Data Vital Signs (Past 12 Hours) Vital Signs Temp Pulse Resp BP Pulse Ox O2 Del Method 05/21/24 07:48 36.3 C L 66 18 204/95 H 100 Room Air 05/21/24 03:52 36.7 C 71 18 164/91 H 96 Room Air 05/20/24 23:57 36.4 C L 73 18 132/84 96 Room Air Laboratory Results Short CBC 05/21/24 Range/Units 05:52 WBC 6.10 (4.8-10.8) K/ul Hgb 12.1 L (14.0-18.0) g/dl Hct 35.7 L (42.0-52.0) % Plt Count 137 (130-400) K/uL BMP 05/21/24 05:52 Sodium 140 Potassium 3.7 Chloride 106 Carbon Dioxide 27 BUN 48 H Creatinine 2.18 H Glucose 133 H Calcium 8.3 L Medications Administered Home Medications Medication Instructions Recorded Confirmed Last Taken Desit Maximum Strength 1 applic topical DIRECTED PRN 05/20/24 05/20/24 Unknown .irritation from inc Desitin Maximum Strength 1 applic topical QS 05/20/24 05/20/24 Unknown acetaminophen 325 mg tablet 650 mg PO Q4 PRN Pain 05/20/24 05/20/24 Unknown (Tylenol) allopurinol 100 mg tablet 50 mg PO DAILY 05/20/24 05/20/24 Unknown aspirin 81 mg chewable tablet 81 mg PO DAILY 05/20/24 05/20/24 Unknown atorvastatin 40 mg tablet 40 mg PO QPM 05/20/24 05/20/24 Unknown carvedilol 25 mg tablet 25 mg PO BID 05/20/24 05/20/24 Unknown clopidogrel 75 mg tablet 75 mg PO QAM 05/20/24 05/20/24 Unknown duloxetine 30 mg capsule,delayed 30 mg PO QAM 05/20/24 05/20/24 Unknown release ferrous fumarate 325 mg (106 mg 325 mg PO BID 05/20/24 05/20/24 Unknown iron) tablet finasteride 5 mg tablet 5 mg PO QAM 05/20/24 05/20/24 Unknown folic acid 1 mg tablet 1 mg PO DAILY 05/20/24 05/20/24 Unknown levothyroxine 75 mcg tablet 75 mcg PO DAILY 05/20/24 05/20/24 Unknown menthol 0.44 %-zinc oxide 20.6 % 1 applic topical DIRECTED PRN 05/20/24 05/20/24 Unknown topical ointment (Calmoseptine) .excoriated butt multivitamin 1 tab PO DAILY 05/20/24 05/20/24 Unknown nystatin 100,000 unit/gram topical 1 applic topical BID PRN fungal 05/20/24 05/20/24 Unknown powder (Nystop) rash/prevention pantoprazole 20 mg tablet,delayed 20 mg PO DAILY 05/20/24 05/20/24 Unknown release potassium chloride 20 mEq 20 meq PO DAILY 05/20/24 05/20/24 Unknown tablet,extended release(part/cryst) psyllium husk 0.4 gram capsule 0.4 g PO BID 05/20/24 05/20/24 Unknown (Reguloid (psyllium husk)) tamsulosin 0.4 mg capsule 0.4 mg PO HS 05/20/24 05/20/24 Unknown Active Medications Generic Name Dose Route Start Last Admin Trade Name Freq PRN Reason Stop Dose Admin Allopurinol 50 mg 05/20/24 09:00 05/21/24 07:56 Allopurinol 100 Mg Tab PO 06/19/24 08:59 50 mg DAILY ELIANA Administration Atorvastatin Calcium 40 mg 05/20/24 21:00 05/20/24 20:41 Atorvastatin 40 Mg Tab PO 06/19/24 20:59 40 mg QPM ELIANA Administration Carvedilol 25 mg 05/20/24 09:00 05/21/24 07:55 Carvedilol 25 Mg Tab PO 06/19/24 08:59 25 mg BID ELIANA Administration Duloxetine HCl 30 mg 05/20/24 09:00 05/21/24 07:56 Duloxetine Hcl 30 Mg Cap PO 06/19/24 08:59 30 mg QAM ELIANA Administration Ferrous Gluconate 324 mg 05/20/24 09:00 05/21/24 07:55 Ferrous Gluconate 324 Mg Tab PO 06/19/24 08:59 324 mg BID ELIANA Administration Finasteride 5 mg 05/20/24 09:00 05/21/24 07:57 Finasteride 5 Mg Tab PO 06/19/24 08:59 5 mg QAM ELIANA Administration Folic Acid 1 mg 05/20/24 09:00 05/21/24 07:56 Folic Acid 1 Mg Tab PO 06/19/24 08:59 1 mg DAILY ELIANA Administration Cefepime HCl 2,000 mg/ Syringe 20 mls @ 5 mls/min 05/20/24 14:00 05/21/24 02:21 IV 05/22/24 13:59 5 mls/min Q12H ELIANA Administration Protocol Levothyroxine Sodium 75 mcg 05/20/24 07:15 05/21/24 06:31 Levothyroxine Sodium 75 Mcg Tablet PO 06/19/24 07:14 75 mcg DAILYBB ELIANA Administration Multivitamins 1 tab 05/20/24 09:00 05/21/24 07:57 Multivitamin Tab PO 06/19/24 08:59 1 tab DAILY ELIANA Administration Pantoprazole Sodium 40 mg 05/20/24 09:00 05/21/24 07:56 Pantoprazole 40 Mg Tab PO 06/19/24 08:59 40 mg DAILY ELIANA Administration Petrolatum 1 appln 05/20/24 16:00 05/21/24 07:57 Butt Paste (Zinc Oxide 16%) 171 Appln/57 Gm Jar TOP 06/19/24 15:59 1 appln QS ELIANA Administration Potassium Chloride 20 meq 05/20/24 09:00 05/21/24 07:59 Potassium Chloride Crtab 20 Meq Tabcr PO 06/19/24 08:59 20 meq DAILY ELIANA Administration Psyllium Hydrophilic Mucilloid 4 gm 05/20/24 09:00 05/21/24 07:55 Psyllium Or Guar Gum Fiber 4gm Packet PO 06/19/24 08:59 4 gm BID ELIANA Administration Tamsulosin HCl 0.4 mg 05/20/24 21:00 05/20/24 20:40 Tamsulosin Hcl 0.4 Mg Cap PO 06/19/24 20:59 0.4 mg HS ELIANA Administration
[2024-05-22 06:24] LABS: Hematocrit (blood only) 34.8 % (42.0-52.0); Hemoglobin 11.7 g/dl (14.0-18.0); Mean Corpuscular Hemoglobin 28.3 pg (25.0-34.0); Mean Corpuscular Hgb Conc 33.6 g/dL (32.0-36.0); Mean Corpuscular Volume 84.3 fL (80.0-100.0); Mean Platelet Volume 10.8 fL (9.4-12.4); Platelet Count 156 K/uL (130-400); RDW Coefficient of Variation 14.1 % (11.5-14.5); RDW Standard Deviation 43.3 fL (36.4-46.3); Red Blood Count 4.13 M/uL (4.70-6.10); White Blood Count 7.02 K/ul (4.8-10.8)
[2024-05-22 06:42] LABS: BUN Creatinine Ratio 21.5 (10-20); Calcium 8.2 mg/dl (8.6-10.3); Creatinine Clr Calc Pharmacy 33.7 ml/min; Est GFR (African American) 32.3 ml/min; Est GFR (Non-African American) 27.8 ml/min; Potassium 3.8 mmol/L (3.5-5.1)
--- NOTE | 2024-05-22 07:19 | Hospitalist Progress Note ---
Date of Service May 22, 2024 Assessment & Plan (1) Brain bleed: Plan: Mr. Demarco is an 84-year-old male who is a resident of the [facility] with past medical history significant for hyperlipidemia, hypothyroidism, obstructive sleep apnea nontolerant of CPAP, CVA, atrial fibrillation, abdominal aortic aneurysm, paroxysmal atrial tachycardia, chronic systolic CHF, hypertension, CKD stage III, BPH, Epperson's esophagus, alcoholic cirrhosis of liver, history of acute emphysematous cholecystitis, obesity, gout, osteoporosis, vascular dementia,, depression, admitted for monitoring of intraventricular bleed. Repeat imaging has remain stable. UA revealed concerns for infection with GNB. UA with Ecoli--transitioned to CTX for narrowed coverage while admitted. Plans to dispo to [facility] on Friday as facility cannot accept over weekend. No acute changes to management today #Intraventricular hemorrhage s/p mechanical fall #Right frontal scalp hematoma #Hx of lacunar infarcts #Vascular dementia Bruise on the right forehead CT head showing" Asymmetric intraventricular hemorrhage is noted involving the right temporal horn. No definite intraparenchymal hemorrhagic changes noted. No significant mass effect or midline shift"; repeat imaging on 05/21 stable PT/OT: Supportive care Discontinue ASA/Plavix Continue statin #Acute cystitis UA with GNB--> e coli, pansensitive Deescalate to CTX x 3 more days Transition to PO as able if discharging prior to EOT #HTN Continue on coreg Consider low dose amlodipine however, pressure fluctuate #Hypothyroidism On Synthyroid #Sleep apnea Nontolerant of CPAP #Paroxsymal a-fib On Coreg Discontinue aspirin and Plavix #Chronic systolic and diastolic CHF On Coreg Echo EF 40 to 45% when he was admitted to [facility] for sepsis secondary UTI and emphysematous cystitis as per cardiology notes Monitor for volume overload. #GERD Epperson's esophagus On Protonix #Gout On allopurinol #History of alcoholic cirrhosis Will monitor for volume overload #BPH On Flomax and finasteride #CKD stage III Baseline creatinine 2.1-2.3 remains stable DVT prophylaxis SCDs Disposition Med/telemetry CODE STATUS DNR/DNI Admission and Anticipated Discharge Date Admission Date: May 20, 2024 Subjective NAEO awake--watching tv and drinking diet coke No acute concern this am Required reorientation but otherwise stable Physical Exam Constitutional: WD/WN, vitals as above hematoma on forehead , healing Respiratory: normal respiratory effort, lungs clear to auscultation Cardiovascular: RRR, no murmur, no edema Gastrointestinal (Abdomen): normal bowel sounds, soft, nontender, no hepatosplenomegaly Results & Data Results & Data Vital Signs (Past 12 Hours) Vital Signs Temp Pulse Pulse Resp BP Pulse Ox O2 Del Method 05/22/24 05:48 72 05/22/24 02:52 36.8 C 75 16 162/80 H 93 Room Air 05/21/24 22:18 36.4 C L 58 L 16 164/69 H 92 Room Air 05/21/24 19:46 36.5 C 68 18 149/70 H 95 Room Air Laboratory Results Short CBC 05/22/24 Range/Units 05:28 WBC 7.02 (4.8-10.8) K/ul Hgb 11.7 L (14.0-18.0) g/dl Hct 34.8 L (42.0-52.0) % Plt Count 156 (130-400) K/uL BMP 05/22/24 05:28 Sodium 141 Potassium 3.8 Chloride 107 Carbon Dioxide 26 BUN 45 H Creatinine 2.09 H Glucose 119 H Calcium 8.2 L Medications Administered Home Medications Medication Instructions Recorded Confirmed Last Taken Desit Maximum Strength 1 applic topical DIRECTED PRN 05/20/24 05/20/24 Unknown .irritation from inc Desitin Maximum Strength 1 applic topical QS 05/20/24 05/20/24 Unknown acetaminophen 325 mg tablet 650 mg PO Q4 PRN Pain 05/20/24 05/20/24 Unknown (Tylenol) allopurinol 100 mg tablet 50 mg PO DAILY 05/20/24 05/20/24 Unknown aspirin 81 mg chewable tablet 81 mg PO DAILY 05/20/24 05/20/24 Unknown atorvastatin 40 mg tablet 40 mg PO QPM 05/20/24 05/20/24 Unknown carvedilol 25 mg tablet 25 mg PO BID 05/20/24 05/20/24 Unknown clopidogrel 75 mg tablet 75 mg PO QAM 05/20/24 05/20/24 Unknown duloxetine 30 mg capsule,delayed 30 mg PO QAM 05/20/24 05/20/24 Unknown release ferrous fumarate 325 mg (106 mg 325 mg PO BID 05/20/24 05/20/24 Unknown iron) tablet finasteride 5 mg tablet 5 mg PO QAM 05/20/24 05/20/24 Unknown folic acid 1 mg tablet 1 mg PO DAILY 05/20/24 05/20/24 Unknown levothyroxine 75 mcg tablet 75 mcg PO DAILY 05/20/24 05/20/24 Unknown menthol 0.44 %-zinc oxide 20.6 % 1 applic topical DIRECTED PRN 05/20/24 05/20/24 Unknown topical ointment (Calmoseptine) .excoriated butt multivitamin 1 tab PO DAILY 05/20/24 05/20/24 Unknown nystatin 100,000 unit/gram topical 1 applic topical BID PRN fungal 05/20/24 05/20/24 Unknown powder (Nystop) rash/prevention pantoprazole 20 mg tablet,delayed 20 mg PO DAILY 05/20/24 05/20/24 Unknown release potassium chloride 20 mEq 20 meq PO DAILY 05/20/24 05/20/24 Unknown tablet,extended release(part/cryst) psyllium husk 0.4 gram capsule 0.4 g PO BID 05/20/24 05/20/24 Unknown (Reguloid (psyllium husk)) tamsulosin 0.4 mg capsule 0.4 mg PO HS 05/20/24 05/20/24 Unknown Active Medications Generic Name Dose Route Start Last Admin Trade Name Leninq PRN Reason Stop Dose Admin Allopurinol 50 mg 05/20/24 09:00 05/22/24 08:38 Allopurinol 100 Mg Tab PO 06/19/24 08:59 50 mg DAILY ELIANA Administration Atorvastatin Calcium 40 mg 05/20/24 21:00 05/21/24 21:33 Atorvastatin 40 Mg Tab PO 06/19/24 20:59 40 mg QPM ELIANA Administration Carvedilol 25 mg 05/20/24 09:00 05/22/24 08:38 Carvedilol 25 Mg Tab PO 06/19/24 08:59 25 mg BID ELIANA Administration Duloxetine HCl 30 mg 05/20/24 09:00 05/22/24 08:39 Duloxetine Hcl 30 Mg Cap PO 06/19/24 08:59 30 mg QAM ELIANA Administration Ferrous Gluconate 324 mg 05/20/24 09:00 05/22/24 08:39 Ferrous Gluconate 324 Mg Tab PO 06/19/24 08:59 324 mg BID ELIANA Administration Finasteride 5 mg 05/20/24 09:00 05/22/24 08:38 Finasteride 5 Mg Tab PO 06/19/24 08:59 5 mg QAM ELIANA Administration Folic Acid 1 mg 05/20/24 09:00 05/22/24 08:39 Folic Acid 1 Mg Tab PO 06/19/24 08:59 1 mg DAILY ELIANA Administration Ceftriaxone Sodium 2,000 mg in 50 mls @ 100 mls/hr 05/22/24 07:30 05/22/24 08:15 Rocephin IV 05/27/24 07:29 Infused Q24H ELIANA Infusion Levothyroxine Sodium 75 mcg 05/20/24 07:15 05/22/24 06:17 Levothyroxine Sodium 75 Mcg Tablet PO 06/19/24 07:14 75 mcg DAILYBB ELIANA Administration Multivitamins 1 tab 05/20/24 09:00 05/22/24 08:39 Multivitamin Tab PO 06/19/24 08:59 1 tab DAILY ELIANA Administration Pantoprazole Sodium 40 mg 05/20/24 09:00 05/22/24 08:38 Pantoprazole 40 Mg Tab PO 06/19/24 08:59 40 mg DAILY ELIANA Administration Petrolatum 1 appln 05/20/24 16:00 05/22/24 07:45 Butt Paste (Zinc Oxide 16%) 171 Appln/57 Gm Jar TOP 06/19/24 15:59 1 appln QS ELIANA Administration Potassium Chloride 20 meq 05/20/24 09:00 05/22/24 08:40 Potassium Chloride Crtab 20 Meq Tabcr PO 06/19/24 08:59 20 meq DAILY ELIANA Administration Psyllium Hydrophilic Mucilloid 4 gm 05/20/24 09:00 05/22/24 08:37 Psyllium Or Guar Gum Fiber 4gm Packet PO 06/19/24 08:59 4 gm BID ELIANA Administration Tamsulosin HCl 0.4 mg 05/20/24 21:00 05/21/24 21:33 Tamsulosin Hcl 0.4 Mg Cap PO 06/19/24 20:59 0.4 mg HS ELIANA Administration
[2024-05-22] MEDS ORDERED: cefTRIAXone SODIUM 1,000 MG/50 ML BAG IV SCH (07:30)
[2024-05-22] MEDS: cefTRIAXone SODIUM 2,000 MG/50 ML BAG IV SCH (07:45)
--- NOTE | 2024-05-23 08:12 | Hospitalist Progress Note ---
Date of Service May 23, 2024 Assessment & Plan (1) Brain bleed: Plan: Mr. Demarco is an 84-year-old male who is a resident of the [facility] with past medical history significant for hyperlipidemia, hypothyroidism, obstructive sleep apnea nontolerant of CPAP, CVA, atrial fibrillation, abdominal aortic aneurysm, paroxysmal atrial tachycardia, chronic systolic CHF, hypertension, CKD stage III, BPH, Epperson's esophagus, alcoholic cirrhosis of liver, history of acute emphysematous cholecystitis, obesity, gout, osteoporosis, vascular dementia,, depression, admitted for monitoring of intraventricular bleed. Repeat imaging has remain stable. UA revealed concerns for infection with GNB. UA with Ecoli--transitioned to CTX for narrowed coverage while admitted. Plans to dispo to [facility] on Friday as facility cannot accept over weekend. No acute changes to management today #Intraventricular hemorrhage s/p mechanical fall #Right frontal scalp hematoma #Hx of lacunar infarcts #Vascular dementia Bruise on the right forehead CT head showing" Asymmetric intraventricular hemorrhage is noted involving the right temporal horn. No definite intraparenchymal hemorrhagic changes noted. No significant mass effect or midline shift"; repeat imaging on 05/21 stable PT/OT:rehab at [facility] Supportive care Discontinue ASA/Plavix Continue statin #Acute cystitis UA with GNB--> e coli, pansensitive Deescalate to CTX x 3 more days Transition to PO as able if discharging prior to EOT 05/25 #HTN Continue on coreg , will hold on aggressive bp control #Hypothyroidism On Synthyroid #Sleep apnea Nontolerant of CPAP #Paroxsymal a-fib On Coreg Discontinue aspirin and Plavix #Chronic systolic and diastolic CHF On Coreg Echo EF 40 to 45% when he was admitted to [facility] for sepsis secondary UTI and emphysematous cystitis as per cardiology notes Monitor for volume overload. #GERD Epperson's esophagus On Protonix #Gout On allopurinol #History of alcoholic cirrhosis Will monitor for volume overload #BPH On Flomax and finasteride #CKD stage III Baseline creatinine 2.1-2.3 remains stable DVT prophylaxis SCDs Disposition Med/telemetry CODE STATUS DNR/DNI Dispo tomorrow to [facility] Admission and Anticipated Discharge Date Admission Date: May 20, 2024 Subjective NAEO Oriented to self. Watching TV. Does not recall days prior. Denies any current needs, conversational and pleasant Physical Exam Constitutional: WD/WN, vitals as above Respiratory: normal respiratory effort, lungs clear to auscultation Cardiovascular: RRR, no murmur, no edema Gastrointestinal (Abdomen): normal bowel sounds, soft, nontender, no hepatosplenomegaly Neurologic: oriented to self (baseline) no new neuro deficits appreciated Results & Data Results & Data Vital Signs (Past 12 Hours) Vital Signs Temp Pulse Pulse Resp BP Pulse Ox O2 Del Method 05/23/24 07:42 36.9 C 71 16 147/69 H 94 Room Air 05/23/24 07:08 Room Air 05/23/24 05:44 57 L 05/23/24 01:58 36.9 C 60 16 153/68 H 94 Room Air 05/22/24 22:15 36.3 C L 60 16 154/90 H 95 Room Air Medications Administered Home Medications Medication Instructions Recorded Confirmed Last Taken Desit Maximum Strength 1 applic topical DIRECTED PRN 05/20/24 05/20/24 Unknown .irritation from inc Desitin Maximum Strength 1 applic topical QS 05/20/24 05/20/24 Unknown acetaminophen 325 mg tablet 650 mg PO Q4 PRN Pain 05/20/24 05/20/24 Unknown (Tylenol) allopurinol 100 mg tablet 50 mg PO DAILY 05/20/24 05/20/24 Unknown aspirin 81 mg chewable tablet 81 mg PO DAILY 05/20/24 05/20/24 Unknown atorvastatin 40 mg tablet 40 mg PO QPM 05/20/24 05/20/24 Unknown carvedilol 25 mg tablet 25 mg PO BID 05/20/24 05/20/24 Unknown clopidogrel 75 mg tablet 75 mg PO QAM 05/20/24 05/20/24 Unknown duloxetine 30 mg capsule,delayed 30 mg PO QAM 05/20/24 05/20/24 Unknown release ferrous fumarate 325 mg (106 mg 325 mg PO BID 05/20/24 05/20/24 Unknown iron) tablet finasteride 5 mg tablet 5 mg PO QAM 05/20/24 05/20/24 Unknown folic acid 1 mg tablet 1 mg PO DAILY 05/20/24 05/20/24 Unknown levothyroxine 75 mcg tablet 75 mcg PO DAILY 05/20/24 05/20/24 Unknown menthol 0.44 %-zinc oxide 20.6 % 1 applic topical DIRECTED PRN 05/20/24 05/20/24 Unknown topical ointment (Calmoseptine) .excoriated butt multivitamin 1 tab PO DAILY 05/20/24 05/20/24 Unknown nystatin 100,000 unit/gram topical 1 applic topical BID PRN fungal 05/20/24 05/20/24 Unknown powder (Nystop) rash/prevention pantoprazole 20 mg tablet,delayed 20 mg PO DAILY 05/20/24 05/20/24 Unknown release potassium chloride 20 mEq 20 meq PO DAILY 05/20/24 05/20/24 Unknown tablet,extended release(part/cryst) psyllium husk 0.4 gram capsule 0.4 g PO BID 05/20/24 05/20/24 Unknown (Reguloid (psyllium husk)) tamsulosin 0.4 mg capsule 0.4 mg PO HS 05/20/24 05/20/24 Unknown Active Medications Generic Name Dose Route Start Last Admin Trade Name Freq PRN Reason Stop Dose Admin Allopurinol 50 mg 05/20/24 09:00 05/23/24 07:59 Allopurinol 100 Mg Tab PO 06/19/24 08:59 50 mg DAILY ELIANA Administration Atorvastatin Calcium 40 mg 05/20/24 21:00 05/22/24 21:28 Atorvastatin 40 Mg Tab PO 06/19/24 20:59 40 mg QPM ELIANA Administration Carvedilol 25 mg 05/20/24 09:00 05/23/24 07:58 Carvedilol 25 Mg Tab PO 06/19/24 08:59 25 mg BID ELIANA Administration Duloxetine HCl 30 mg 05/20/24 09:00 05/23/24 07:58 Duloxetine Hcl 30 Mg Cap PO 06/19/24 08:59 30 mg QAM ELIANA Administration Ferrous Gluconate 324 mg 05/20/24 09:00 05/23/24 07:58 Ferrous Gluconate 324 Mg Tab PO 06/19/24 08:59 324 mg BID ELIANA Administration Finasteride 5 mg 05/20/24 09:00 05/23/24 07:59 Finasteride 5 Mg Tab PO 06/19/24 08:59 5 mg QAM ELIANA Administration Folic Acid 1 mg 05/20/24 09:00 05/23/24 07:58 Folic Acid 1 Mg Tab PO 06/19/24 08:59 1 mg DAILY ELIANA Administration Ceftriaxone Sodium 2,000 mg in 50 mls @ 100 mls/hr 05/22/24 07:30 05/23/24 07:36 Rocephin IV 05/27/24 07:29 Infused Q24H ELIANA Infusion Levothyroxine Sodium 75 mcg 05/20/24 07:15 05/23/24 06:23 Levothyroxine Sodium 75 Mcg Tablet PO 06/19/24 07:14 75 mcg DAILYBB ELIANA Administration Multivitamins 1 tab 05/20/24 09:00 05/23/24 07:59 Multivitamin Tab PO 06/19/24 08:59 1 tab DAILY ELIANA Administration Pantoprazole Sodium 40 mg 05/20/24 09:00 05/23/24 07:59 Pantoprazole 40 Mg Tab PO 06/19/24 08:59 40 mg DAILY ELIANA Administration Petrolatum 1 appln 05/20/24 16:00 05/23/24 07:59 Butt Paste (Zinc Oxide 16%) 171 Appln/57 Gm Jar TOP 06/19/24 15:59 1 appln QS ELIANA Administration Potassium Chloride 20 meq 05/20/24 09:00 05/23/24 07:57 Potassium Chloride Crtab 20 Meq Tabcr PO 06/19/24 08:59 20 meq DAILY ELIANA Administration Psyllium Hydrophilic Mucilloid 4 gm 05/20/24 09:00 05/23/24 07:56 Psyllium Or Guar Gum Fiber 4gm Packet PO 06/19/24 08:59 4 gm BID ELIANA Administration Tamsulosin HCl 0.4 mg 05/20/24 21:00 05/22/24 21:27 Tamsulosin Hcl 0.4 Mg Cap PO 06/19/24 20:59 0.4 mg HS ELIANA Administration
[2024-05-24 06:52] LABS: Hematocrit (blood only) 34.8 % (42.0-52.0); Hemoglobin 11.8 g/dl (14.0-18.0); Mean Corpuscular Hemoglobin 28.7 pg (25.0-34.0); Mean Corpuscular Hgb Conc 33.9 g/dL (32.0-36.0); Mean Corpuscular Volume 84.7 fL (80.0-100.0); Mean Platelet Volume 10.8 fL (9.4-12.4); Platelet Count 163 K/uL (130-400); RDW Coefficient of Variation 13.7 % (11.5-14.5); RDW Standard Deviation 42.3 fL (36.4-46.3); Red Blood Count 4.11 M/uL (4.70-6.10); White Blood Count 8.63 K/ul (4.8-10.8)
[2024-05-24 07:17] LABS: BUN Creatinine Ratio 22.1 (10-20); Calcium 8.6 mg/dl (8.6-10.3); Creatinine Clr Calc Pharmacy 39.4 ml/min; Est GFR (African American) 38.4 ml/min; Est GFR (Non-African American) 33.1 ml/min; Potassium 4.2 mmol/L (3.5-5.1)
--- NOTE | 2024-05-24 12:18 | Hospitalist Progress Note ---
Date of Service May 24, 2024 Assessment & Plan (1) Brain bleed: Plan: Mr. Demarco is an 84-year-old male who is a resident of the [facility] with past medical history significant for hyperlipidemia, hypothyroidism, obstructive sleep apnea nontolerant of CPAP, CVA, atrial fibrillation, abdominal aortic aneurysm, paroxysmal atrial tachycardia, chronic systolic CHF, hypertension, CKD stage III, BPH, Epperson's esophagus, alcoholic cirrhosis of liver, history of acute emphysematous cholecystitis, obesity, gout, osteoporosis, vascular dementia,, depression, admitted for monitoring of intraventricular bleed. Repeat imaging has remain stable. UA revealed concerns for infection with GNB. UA with Ecoli--transitioned to CTX for narrowed coverage while admitted. Plans to dispo to [facility] on Friday as facility cannot accept over weekend. New referral placed to [facility] this am No acute changes to management today #Intraventricular hemorrhage s/p mechanical fall #Right frontal scalp hematoma #Hx of lacunar infarcts #Vascular dementia Bruise on the right forehead CT head showing" Asymmetric intraventricular hemorrhage is noted involving the right temporal horn. No definite intraparenchymal hemorrhagic changes noted. No significant mass effect or midline shift"; repeat imaging on 05/21 stable PT/OT:rehab at [facility] Supportive care Discontinue ASA/Plavix Continue statin #Acute cystitis UA with GNB--> e coli, pansensitive Deescalate to CTX x 3 more days Transition to PO as able if discharging prior to EOT 05/25 #HTN Continue on coreg , will hold on aggressive bp control #Hypothyroidism On Synthroid #Sleep apnea Nontolerant of CPAP #Paroxysmal a-fib On Coreg Discontinue aspirin and Plavix #Chronic systolic and diastolic CHF On Coreg Echo EF 40 to 45% when he was admitted to [facility] for sepsis secondary UTI and emphysematous cystitis as per cardiology notes Monitor for volume overload. #GERD Epperson's esophagus On Protonix #Gout On allopurinol #History of alcoholic cirrhosis Will monitor for volume overload #BPH On Flomax and finasteride #CKD stage III Baseline creatinine 2.1-2.3 remains stable DVT prophylaxis SCDs Disposition Med/telemetry CODE STATUS DNR/DNI Referral place to [facility] for rehab as family no longer wants [facility] at this time Admission and Anticipated Discharge Date Admission Date: May 20, 2024 Subjective NAEO Alert to self. Denies any acute concerns this am Physical Exam Constitutional: WD/WN, vitals as above Respiratory: normal respiratory effort, lungs clear to auscultation Cardiovascular: RRR, no murmur, no edema Gastrointestinal (Abdomen): normal bowel sounds, soft, nontender, no hepatosplenomegaly Neurologic: no focal deficits noted Results & Data Results & Data Vital Signs (Past 12 Hours) Vital Signs Temp Pulse Pulse Resp BP Pulse Ox O2 Del Method 05/24/24 11:12 36.8 C 64 13 146/82 H 94 Room Air 05/24/24 07:32 37.7 C H 73 16 153/87 H 94 Room Air 05/24/24 07:22 Room Air 05/24/24 07:07 78 05/24/24 03:10 36.4 C L 77 16 159/63 H 92 Room Air Laboratory Results Short CBC 05/24/24 Range/Units 05:45 WBC 8.63 (4.8-10.8) K/ul Hgb 11.8 L (14.0-18.0) g/dl Hct 34.8 L (42.0-52.0) % Plt Count 163 (130-400) K/uL BMP 05/24/24 05:45 Sodium 138 Potassium 4.2 Chloride 105 Carbon Dioxide 26 BUN 40 H Creatinine 1.81 H Glucose 152 H Calcium 8.6 Medications Administered Home Medications Medication Instructions Recorded Confirmed Last Taken Desit Maximum Strength 1 applic topical DIRECTED PRN 05/20/24 05/20/24 Unknown .irritation from inc Desitin Maximum Strength 1 applic topical QS 05/20/24 05/20/24 Unknown acetaminophen 325 mg tablet 650 mg PO Q4 PRN Pain 05/20/24 05/20/24 Unknown (Tylenol) allopurinol 100 mg tablet 50 mg PO DAILY 05/20/24 05/20/24 Unknown aspirin 81 mg chewable tablet 81 mg PO DAILY 05/20/24 05/20/24 Unknown atorvastatin 40 mg tablet 40 mg PO QPM 05/20/24 05/20/24 Unknown carvedilol 25 mg tablet 25 mg PO BID 05/20/24 05/20/24 Unknown clopidogrel 75 mg tablet 75 mg PO QAM 05/20/24 05/20/24 Unknown duloxetine 30 mg capsule,delayed 30 mg PO QAM 05/20/24 05/20/24 Unknown release ferrous fumarate 325 mg (106 mg 325 mg PO BID 05/20/24 05/20/24 Unknown iron) tablet finasteride 5 mg tablet 5 mg PO QAM 05/20/24 05/20/24 Unknown folic acid 1 mg tablet 1 mg PO DAILY 05/20/24 05/20/24 Unknown levothyroxine 75 mcg tablet 75 mcg PO DAILY 05/20/24 05/20/24 Unknown menthol 0.44 %-zinc oxide 20.6 % 1 applic topical DIRECTED PRN 05/20/24 05/20/24 Unknown topical ointment (Calmoseptine) .excoriated butt multivitamin 1 tab PO DAILY 05/20/24 05/20/24 Unknown nystatin 100,000 unit/gram topical 1 applic topical BID PRN fungal 05/20/24 05/20/24 Unknown powder (Nystop) rash/prevention pantoprazole 20 mg tablet,delayed 20 mg PO DAILY 05/20/24 05/20/24 Unknown release potassium chloride 20 mEq 20 meq PO DAILY 05/20/24 05/20/24 Unknown tablet,extended release(part/cryst) psyllium husk 0.4 gram capsule 0.4 g PO BID 05/20/24 05/20/24 Unknown (Reguloid (psyllium husk)) tamsulosin 0.4 mg capsule 0.4 mg PO HS 05/20/24 05/20/24 Unknown Active Medications Generic Name Dose Route Start Last Admin Trade Name Freq PRN Reason Stop Dose Admin Allopurinol 50 mg 05/20/24 09:00 05/24/24 07:46 Allopurinol 100 Mg Tab PO 06/19/24 08:59 50 mg DAILY ELIANA Administration Atorvastatin Calcium 40 mg 05/20/24 21:00 05/23/24 20:40 Atorvastatin 40 Mg Tab PO 06/19/24 20:59 40 mg QPM ELIANA Administration Carvedilol 25 mg 05/20/24 09:00 05/24/24 07:48 Carvedilol 25 Mg Tab PO 06/19/24 08:59 25 mg BID ELIANA Administration Duloxetine HCl 30 mg 05/20/24 09:00 05/24/24 07:48 Duloxetine Hcl 30 Mg Cap PO 06/19/24 08:59 30 mg QAM ELIANA Administration Ferrous Gluconate 324 mg 05/20/24 09:00 05/24/24 07:46 Ferrous Gluconate 324 Mg Tab PO 06/19/24 08:59 324 mg BID ELIANA Administration Finasteride 5 mg 05/20/24 09:00 05/24/24 07:47 Finasteride 5 Mg Tab PO 06/19/24 08:59 5 mg QAM ELIANA Administration Folic Acid 1 mg 05/20/24 09:00 05/24/24 07:47 Folic Acid 1 Mg Tab PO 06/19/24 08:59 1 mg DAILY ELIANA Administration Ceftriaxone Sodium 2,000 mg in 50 mls @ 100 mls/hr 05/22/24 07:30 05/24/24 07:14 Rocephin IV 05/25/24 07:29 Infused Q24H ELIANA Infusion Levothyroxine Sodium 75 mcg 05/20/24 07:15 05/24/24 06:14 Levothyroxine Sodium 75 Mcg Tablet PO 06/19/24 07:14 75 mcg DAILYBB ELIANA Administration Multivitamins 1 tab 05/20/24 09:00 05/24/24 07:47 Multivitamin Tab PO 06/19/24 08:59 1 tab DAILY ELIANA Administration Pantoprazole Sodium 40 mg 05/20/24 09:00 05/24/24 07:47 Pantoprazole 40 Mg Tab PO 06/19/24 08:59 40 mg DAILY ELIANA Administration Petrolatum 1 appln 05/20/24 16:00 05/24/24 07:45 Butt Paste (Zinc Oxide 16%) 171 Appln/57 Gm Jar TOP 06/19/24 15:59 1 appln QS ELIANA Administration Potassium Chloride 20 meq 05/20/24 09:00 05/24/24 07:51 Potassium Chloride Crtab 20 Meq Tabcr PO 06/19/24 08:59 20 meq DAILY ELIANA Administration Psyllium Hydrophilic Mucilloid 4 gm 05/20/24 09:00 05/24/24 07:48 Psyllium Or Guar Gum Fiber 4gm Packet PO 06/19/24 08:59 4 gm BID ELIANA Administration Tamsulosin HCl 0.4 mg 05/20/24 21:00 05/23/24 20:40 Tamsulosin Hcl 0.4 Mg Cap PO 06/19/24 20:59 0.4 mg HS ELIANA Administration
[2024-05-24] MEDS: hydrALAZINE HCL 20 MG/ML VIAL IV ONE (23:45)
--- NOTE | 2024-05-25 00:28 | CT Scan Report ---
Exam(s): CT HEAD Without Contrast EXAM: CT Head Without Intravenous Contrast CLINICAL HISTORY: Reason for exam: recent brain bleed. AMS. TECHNIQUE: Axial computed tomography images of the head/brain without intravenous contrast. CTDI is 38 mGy and DLP is 624 mGy-cm. Automated exposure control was utilized for the study. A dose lowering technique was utilized adhering to the principles of ALARA. Moderate motion artifact, in spite of repeat scanning. COMPARISON: Head CT 05/21/24. FINDINGS: Brain: Right medial temporal lobe/interventricular hemorrhage has resolved. No new hemorrhage. Mild atrophy and chronic white matter disease. Limited evaluation of the posterior fossa due to motion artifact. Ventricles: No hydrocephalus or midline shift. Bones/joints: No obvious skull fracture. Soft tissues: No scalp hematoma. Visualized Sinuses: Clear. Mastoid air cells: No mastoid effusion. IMPRESSION: 1. Right medial temporal lobe/interventricular hemorrhage has resolved. 2. No hydrocephalus, acute infarct, bleed, or acute intracranial abnormality. 3. Moderate motion artifact. Electronically signed by: Trinidad Willson M.D. 05/25/24 00:27 AM
--- NOTE | 2024-05-25 03:12 | Ultrasound Report ---
Exam(s): US VENOUS RIGHT UPPER EXTREMITY EXAM: US Duplex Right Upper Extremity Veins CLINICAL HISTORY: Reason for exam: right upper extremity edema. dvt?. TECHNIQUE: Real-time duplex ultrasound scan of the right upper extremity veins integrating B-mode two-dimensional vascular structure, Doppler spectral analysis, color flow Doppler imaging and compression. COMPARISON: No relevant prior studies available. FINDINGS: Deep veins: Unremarkable. No DVT in the internal jugular, subclavian, axillary, or brachial veins. The veins demonstrate normal color flow, are normally compressible, with normal phasic flow and/or augmentation response. Superficial veins: Unremarkable. No thrombus in the visualized basilic and cephalic veins. Soft tissues: No acute findings. IMPRESSION: 1. No DVT. Electronically signed by: Trinidad Willson M.D. 05/25/24 03:11 AM
--- NOTE | 2024-05-25 10:25 | XRay Report ---
RIGHT WRIST 4 VIEWS CLINICAL HISTORY: Right wrist pain and swelling. FINDINGS: 4 views of the right wrist are obtained. No prior studies are available for comparison at t he time of dictation. The skeletal structures are osteopenic. No fracture is seen. Mild osteoarthriti c change is noted throughout the wrist. Soft tissue edema is noted throughout the wrist and hand. The re is advanced atherosclerotic calcification of the regional arteries. IMPRESSION: Soft tissue swelling with no acute bony abnormality identified. Electronically signed by: Otf Villegas M.D. 05/25/2024 10:24 AM
[2024-05-25 12:34] LABS: Hematocrit (blood only) 36.1 % (42.0-52.0); Hemoglobin 12.3 g/dl (14.0-18.0); Mean Corpuscular Hgb Conc 34.1 g/dL (32.0-36.0); Mean Corpuscular Volume 85.1 fL (80.0-100.0); Mean Platelet Volume 11.3 fL (9.4-12.4); Platelet Count 181 K/uL (130-400); RDW Coefficient of Variation 14.1 % (11.5-14.5); RDW Standard Deviation 43.8 fL (36.4-46.3); Red Blood Count 4.24 M/uL (4.70-6.10); White Blood Count 9.77 K/ul (4.8-10.8)
--- NOTE | 2024-05-25 13:27 | Hospitalist Progress Note ---
Date of Service May 25, 2024 Assessment & Plan (1) Brain bleed: Plan Mr. Demarco is an 84y/o M who is a resident of [facility] with PMHx significant for hyperlipidemia, hypothyroidism, obstructive sleep apnea non- tolerant of CPAP, CVA, atrial fibrillation, abdominal aortic aneurysm, paroxysmal atrial tachycardia, chronic systolic CHF, hypertension, CKD stage III, BPH, Epperson's esophagus, alcoholic cirrhosis of liver, history of acute emphysematous cholecystitis, obesity, gout, osteoporosis, vascular dementia and depression who was admitted for monitoring of an intraventricular bleed. Repeat imaging has remained stable. UA revealed concerns for infection with GNB. Urine culture grew E. coli -- transitioned to CTX for narrowed coverage while admitted. No acute changes to management today. Intraventricular Hemorrhage s/p Mechanical Fall & Right Frontal Scalp Hematoma History of Lacunar Infarcts & Vascular Dementia Bruise on the right forehead region. Admitting Head CT revealed an asymmetric intraventricular hemorrhage involving the right temporal horn. No definite intraparenchymal hemorrhagic changes noted. No significant mass effect or midline shift. Repeat head CT on 05/21 showed an unchanged right lateral intraventricular hemorrhage. Another repeat head CT on 05/24 demonstrated that the right medial temporal lobe/interventricular hemorrhage has resolved. Supportive care, ASA/Plavix discontinued. Can continue statin therapy. PT/OT evaluations recommending acute rehab placement at time of discharge. Acute Cystitis UA with GNB --> E. coli, pansensitive. Patient was on empiric ceftriaxone & doxycycline then transitioned to cefepime on 05/20. He was then deescalated to ceftriaxone on 05/22, will complete 3-day course today. Right UE Swelling C/F Gout Flare Patient w/ R hand swelling today. R wrist XR w/ some soft tissue swelling but no fx. RUE venous doppler negative for DVT. Will continue w/ warm compresses, added on topical Voltaren gel. ESR, CRP and uric acid in AM - will follow results closely. Patient denies any pain. HTN Continue on Coreg, will hold on aggressive bp control. Hypothyroidism: On Synthroid [employer] - continue. Sleep Apnea: Non-tolerant of CPAP. Paroxysmal Atrial Fibrillation On Coreg - continue. Discontinued aspirin and Plavix. Chronic Systolic and Diastolic CHF On Coreg - continue. Monitor closely for volume overload. Echo EF = 40-45% when he was admitted to [facility] for sepsis secondary to UTI and emphysematous cystitis as per cardiology notes. GERD & Epperson's Esophagus: On Protonix - continue. Gout: On allopurinol - continue. History of Alcoholic Cirrhosis Will continue to monitor for volume overload. BPH: On Flomax and finasteride - continue. CKD Stage III Baseline creatinine 2.1-2.3, remains stable. Continue to monitor renal fx, avoid nephrotoxic agents when able. DVT Prophylaxis: SCDs Code Status: DNR/DNI - No Resuscitation PCP: Ranjit Baird DO Disposition: Admitted in Med/Surg + Telemetry - patient to require SNF placement upon discharge. * [facility] cannot offer the patient a bed because the family would like him to be placed at a SNF that is within his network for medical assistance. CM spoke with [facility] and no beds are available. Patient's daughter requested that a referral be placed to [facility]. Referral was made by CM - will need prior auth if patient is accepted. Patient seen in collaboration with Dr. La. Please see addendum. I spent a total of 45 minutes coordinating, documenting, and providing care for this patient excluding time spent in the performance of separately billed services. This included personally reviewing all current laboratories and imaging studies, medical reconciliation, outpatient chart review and discussion with specialists. This chart was completed in part utilizing Speech Voice Recognition Software. Grammatical errors, random word insertions, pronoun errors, and incomplete sentences are an occasional consequence of this system due to software limitations, ambient noise, and hardware issues. Any formal questions or concerns about the content, text, or information contained within the body of this dictation should be directly addressed to the provider for clarification. Admission and Anticipated Discharge Date Admission Date: May 20, 2024 Supervising Physician Co-Signing Physician Notes I have seen and discussed the case with the collaborating advanced practitioner. I agree with the above H&P. I have reviewed and confirmed the patients medical history, the findings on physical examination, and the patients diagnosis and treatment plan with Claudia OLIVARES and agree with the information documented. Mr. Demarco was admitted for fall and found to have intraventricular hemorrhage. UA notable for ecoli. Patient monitored with repeat CT revealing resolution of IVH. Patient completed course of IV abx fo uti. Course complicated by RUE swelling. Doppler negative. Xray negative Hand painful with movement, slight erythema over wrist and edematous WBC without leukocytosis Encourage warm compresses, topical voltaren, CTM Uric Acid in am, hx of gout (usually foot per hx), esr/crp low suspicion for cellulitis, notable areas of venipunctrue likely contributing I spent a total of 25 minutes coordinating, documenting, and providing care for this patient excluding time spent in the performance of separately billed services. All of the aforementioned completed outside of collaborating with the assigned advanced practitioner for a full treatment plan. I have reviewed the advanced practitioner's documentation, and I agree with, and take responsibility for the plan of care Subjective Patient seen and examined at bedside in room W4-2. Patient was initially asleep when I entered the room. However, I was able to wake him easily with loud verbal stimuli. He denies any chest pain, SOB or abdominal pain with simple yes/no responses. Patient was able to eat a few bites of his pureed oatmeal while I was in the room. Review of Systems Review of Systems: At least ten systems reviewed and negative, except as noted in the HPI. Physical Exam Physical Exam: General: WD/WN, vitals as above, NAD, laying down in bed, not very conversive but making eye contact. A+O to self only. HEENT: Bruising noted on upper right aspect of forehead, PERRL, conjunctivae normal, anicteric sclerae, oropharynx normal. Respiratory: Normal respiratory effort, lungs clear to auscultation, no wheeze, rales, rhonchi. No accessory muscle use. Cardiovascular: Regular rate, rhythm, no murmur, normal peripheral pulses, no BLE edema. Vessels: No JVD. Abdomen/GI: Normal bowel sounds, soft, nontender, no hepatosplenomegaly. Extremities/Musculoskeletal: No cyanosis or clubbing, R hand w/ some swelling. Neurologic: EOMI, accommodation nl, no face palsy, no dysarthria. Results & Data Results & Data Vital Signs (Past 12 Hours) Vital Signs Temp Pulse Resp BP BP Pulse Ox O2 Del Method 05/25/24 07:38 36.6 C 80 16 149/77 H 94 Room Air 05/25/24 04:03 36.6 C 72 18 163/80 H 97 Room Air Laboratory Results Short CBC 05/25/24 Range/Units 12:07 WBC 9.77 (4.8-10.8) K/ul Hgb 12.3 L (14.0-18.0) g/dl Hct 36.1 L (42.0-52.0) % Plt Count 181 (130-400) K/uL Diagnostic Findings Cervical Spine CT 05/20/24 00:50 Exam(s): CT C SPINE EXAM: CT Cervical Spine Without Intravenous Contrast CLINICAL HISTORY: Trauma. TECHNIQUE: Axial computed tomography images of the cervical spine without intravenous contrast. CTDI is 26.76 mGy and DLP is 538.88 mGy-cm. Automated exposure control was utilized for the study. A dose lowering technique was utilized adhering to the principles of ALARA. COMPARISON: No relevant prior studies available. FINDINGS: Vertebrae: The cervical vertebral bodies are intact without acute traumatic injury. Incidental chronic anterior wedging at C5 level. Partial ankylosis of the C3-C4 disc is noted. The pedicles, facet joints, spinous processes and transverse processes are intact. Multilevel bilateral facet hypertrophic arthrosis is chronic in appearance. Discs/spinal canal/neural foramina: Incidental bilateral facet ankylosis noted at C3-C4. Multilevel disc space narrowing with marginal hypertrophic osteophyte changes noted at several levels. No severe osseous central canal stenosis. Soft tissues: Unremarkable. Lung apices: The included lung apices demonstrate no evidence for significant acute traumatic injury. IMPRESSION: No acute osseous traumatic injury or significant abnormal alignment involving the cervical spine. Electronically signed by: Wilbert Prather MD 05/20/24 01:[address] 05/20/24 00:50 CR Exam(s): CT HEAD Without Contrast EXAM: CT Head Without Intravenous Contrast CLINICAL HISTORY: trauma. TECHNIQUE: Axial computed tomography images of the head/brain without intravenous contrast. CTDI is 38.99 mGy and DLP is 624.41 mGy-cm. Automated exposure control was utilized for the study. A dose lowering technique was utilized adhering to the principles of ALARA. COMPARISON: CT head without contrast dated 03/20/2021 FINDINGS: Brain: Underlying parenchymal involutional changes with prominence of the cerebral sulci and sylvian fissures. Periventricular deep white matter hypodense changes noted. No hemorrhage. Ventricles: Asymmetric intraventricular hemorrhage is noted involving the right temporal horn. No definite intraparenchymal hemorrhagic changes noted. No significant mass effect. No midline shift or ventriculomegaly. Bones/joints: No skull fracture. Soft tissues: Mild superficial scalp contusive changes overlie the right high frontal region. No radiopaque foreign body. No subcutaneous emphysema. Vasculature: Atherosclerotic calcification involving the cavernous and supraclinoid internal carotid arteries. Minimal atherosclerotic calcification involving the distal vertebral arteries. Sinuses: No traumatic effusions involving the paranasal sinuses. Mastoid air cells: Unremarkable as visualized. No mastoid effusion. IMPRESSION: Asymmetric intraventricular hemorrhage is noted involving the right temporal horn. No definite intraparenchymal hemorrhagic changes noted. No significant mass effect or midline shift. Recommend short-term interval follow-up to ensure stability over time. Communications: Call Doctor Intracranial Hemorrhage Electronically signed by: Wilbert Prather MD 05/20/24 01:54 AM Chest X-Ray 05/20/24 01:09 XR chest 1V portable HISTORY: 84 years-old Male Trauma, pneumonia acute chest trauma. COMPARISON: Chest CT of same day, chest radiograph 04/22/2023. TECHNIQUE: AP view of the chest FINDINGS: Cardiac silhouette is enlarged. Atherosclerosis of the aorta. Trace pleural effusions. Mild right hemidiaphragmatic elevation with subsegmental bibasilar densities. Degenerative changes of the shoulders and spine. No acute displaced rib fracture identified. Healing subacute fracture of the posterior medial right 12th rib seen by CT, not visualized by radiography. IMPRESSION: 1. Cardiomegaly without overt pulmonary edema. 2. Trace pleural effusions with mild bibasilar atelectasis. 3. Unchanged right hemidiaphragmatic elevation. ACT 112: Negative or not required by law. The above report was generated using voice recognition software. It may contain grammatical, syntax or spelling errors. Electronically signed by: Nelson Michaels M.D. 05/20/2024 8:[address] 05/20/24 07:30 CT chest diagnostic wo con CT DOSE: 2172.96 mGy.cm CLINICAL HISTORY: 84 years-old Male with infiltrates?. Acute shortness of breath TECHNIQUE: Multiaxial CT images of the chest were performed without contrast. A dose lowering technique was utilized adhering to the principles of ALARA. COMPARISON: Chest radiograph of same day, CTA chest 10/26/2013, CT abdomen and pelvis 03/20/2021 FINDINGS: No thyroid nodule or lymphadenopathy identified. Cardiomegaly with small pericardial effusion. Extensive urinary artery calcifications. Atherosclerosis of the aorta without aneurysm. Trace pleural effusions. Respiratory motion artifact and upper extremity positioning limits this study. Mild intralobular septal thickening with subsegmental patchy bibasilar consolidation. Calcified granuloma of the basal left lower lobe. There are no suspicious pulmonary nodules or masses. Chronic right hemidiaphragmatic elevation. Central airways are patent. Gynecomastia. No acute upper abdominal abnormality. Healing subacute nondisplaced fracture of the posterior medial right 12th rib. No acute displaced fracture identified. Degenerative changes of the shoulders and spine. IMPRESSION: 1. Cardiomegaly with mild interstitial pulmonary edema and trace pleural effusions. 2. Mild bibasilar atelectasis. 3. Healing subacute nondisplaced 12th rib fracture. 4. Small pericardial effusion. ACT 112: Negative or not required by law. Electronically signed by: Nelson Michaels M.D. 05/20/2024 9:[address] 05/20/24 07:[address] DOSE: HISTORY: Follow-up intracranial hemorrhage. TECHNIQUE: Multiaxial CT images of the head were performed without the use of intravenous contrast. Automated exposure control was utilized for this study. A dose lowering technique was utilized adhering to the principles of ALARA. Comparison: Head CT 05/20/2024. Findings: The paranasal sinuses and mastoid air cells are clear. The calvarium and skull base are intact. There is right frontal scalp swelling. Motion artifact results in suboptimal evaluation of the brain. Mild to moderate atrophic changes most pronounced within the cerebellum again noted. There is no midline shift or acute infarct. There are old lacunar infarcts within the basal ganglia again noted. Microvascular ischemic changes are present. Slight increase in size within the intraventricular hemorrhage located within the temporal and occipital horns of the right lateral ventricle. Impression: Slight increase in size within the intraventricular hemorrhage located within the temporal and occipital horns of the right lateral ventricle. ACT 112: Negative or not required by law. Electronically signed by: Merrick Boykin M.D. 05/20/2024 9:[address] 05/21/24 07:43 CT head/brain wo con CLINICAL HISTORY: 84 years-old Male with follow up ICH stability. Acute head trauma TECHNIQUE: Multiple axial CT images of the head were obtained without contrast. A dose lowering technique was utilized adhering to the principles of ALARA. CT DOSE: 1499.97 mGy.cm COMPARISON: 05/20/2024 FINDINGS: The paranasal sinuses and mastoid air cells are clear. The calvarium and skull base are intact. There is right frontal scalp swelling. Motion artifact results in suboptimal evaluation of the brain. Mild to moderate atrophic changes most pronounced within the cerebellum again noted. There is no midline shift or acute infarct. There are old lacunar infarcts within the basal ganglia again noted. Microvascular ischemic changes are present. Stable intraventricular hemorrhage located within the temporal and occipital horns of the right lateral ventricle. IMPRESSION: Unchanged right lateral intraventricular hemorrhage. ACT 112: Negative or not required by law. The above report was generated using voice recognition software. It may contain grammatical, syntax or spelling errors. Electronically signed by: Nelson Michaels M.D. 05/21/2024 10:[address] 05/24/24 22:11 Exam(s): CT HEAD Without Contrast EXAM: CT Head Without Intravenous Contrast CLINICAL HISTORY: Reason for exam: recent brain bleed. AMS. TECHNIQUE: Axial computed tomography images of the head/brain without intravenous contrast. CTDI is 38 mGy and DLP is 624 mGy-cm. Automated exposure control was utilized for the study. A dose lowering technique was utilized adhering to the principles of ALARA. Moderate motion artifact, in spite of repeat scanning. COMPARISON: Head CT 05/21/24. FINDINGS: Brain: Right medial temporal lobe/interventricular hemorrhage has resolved. No new hemorrhage. Mild atrophy and chronic white matter disease. Limited evaluation of the posterior fossa due to motion artifact. Ventricles: No hydrocephalus or midline shift. Bones/joints: No obvious skull fracture. Soft tissues: No scalp hematoma. Visualized Sinuses: Clear. Mastoid air cells: No mastoid effusion. IMPRESSION: 1. Right medial temporal lobe/interventricular hemorrhage has resolved. 2. No hydrocephalus, acute infarct, bleed, or acute intracranial abnormality. 3. Moderate motion artifact. Electronically signed by: Trinidad Willson M.D. 05/25/24 00:27 AM Venous Doppler Study 05/25/24 01:27 Exam(s): US VENOUS RIGHT UPPER EXTREMITY EXAM: US Duplex Right Upper Extremity Veins CLINICAL HISTORY: Reason for exam: right upper extremity edema. dvt?. TECHNIQUE: Real-time duplex ultrasound scan of the right upper extremity veins integrating B-mode two-dimensional vascular structure, Doppler spectral analysis, color flow Doppler imaging and compression. COMPARISON: No relevant prior studies available. FINDINGS: Deep veins: Unremarkable. No DVT in the internal jugular, subclavian, axillary, or brachial veins. The veins demonstrate normal color flow, are normally compressible, with normal phasic flow and/or augmentation response. Superficial veins: Unremarkable. No thrombus in the visualized basilic and cephalic veins. Soft tissues: No acute findings. IMPRESSION: 1. No DVT. Electronically signed by: Trinidad Willson M.D. 05/25/24 03:11 AM Wrist X-Ray 05/25/24 09:20 RIGHT WRIST 4 VIEWS CLINICAL HISTORY: Right wrist pain and swelling. FINDINGS: 4 views of the right wrist are obtained. No prior studies are available for comparison at the time of dictation. The skeletal structures are osteopenic. No fracture is seen. Mild osteoarthritic change is noted throughout the wrist. Soft tissue edema is noted throughout the wrist and hand. There is advanced atherosclerotic calcification of the regional arteries. IMPRESSION: Soft tissue swelling with no acute bony abnormality identified. Electronically signed by: Otf Villegas M.D. 05/25/2024 10:24 AM Medications Administered Allopurinol (Allopurinol 100 Mg Tab) 50 mg PO DAILY ELIANA Stop: 06/19/24 08:59 Last Admin: 05/25/24 09:35 Dose: 50 mg Documented By: Admin: 05/24/24 07:46 Dose: 50 mg Documented By: Admin: 05/23/24 07:59 Dose: 50 mg Documented By: Admin: 05/22/24 08:38 Dose: 50 mg Documented By: Admin: 05/21/24 07:56 Dose: 50 mg Documented By: Admin: 05/20/24 08:36 Dose: 50 mg Documented By: JAY Atorvastatin Calcium (Atorvastatin 40 Mg Tab) 40 mg PO QPM ELIANA Stop: 06/19/24 20:59 Last Admin: 05/24/24 19:52 Dose: 40 mg Documented By: Admin: 05/23/24 20:40 Dose: 40 mg Documented By: Admin: 05/22/24 21:28 Dose: 40 mg Documented By: Admin: 05/21/24 21:33 Dose: 40 mg Documented By: Admin: 05/20/24 20:41 Dose: 40 mg Documented By: KO Carvedilol (Carvedilol 25 Mg Tab) 25 mg PO BID ELIANA Stop: 06/19/24 08:59 Last Admin: 05/25/24 09:35 Dose: 25 mg Documented By: Admin: 05/24/24 19:52 Dose: 25 mg Documented By: Admin: 05/24/24 07:48 Dose: 25 mg Documented By: Admin: 05/23/24 20:40 Dose: 25 mg Documented By: Admin: 05/23/24 07:58 Dose: 25 mg Documented By: Admin: 05/22/24 21:28 Dose: 25 mg Documented By: Admin: 05/22/24 08:38 Dose: 25 mg Documented By: Admin: 05/21/24 21:32 Dose: 25 mg Documented By: Admin: 05/21/24 07:55 Dose: 25 mg Documented By: Admin: 05/20/24 20:41 Dose: 25 mg Documented By: Admin: 05/20/24 08:38 Dose: 25 mg Documented By: JAY Duloxetine HCl (Duloxetine Hcl 30 Mg Cap) 30 mg PO QAM ELIANA Stop: 06/19/24 08:59 Last Admin: 05/25/24 09:36 Dose: 30 mg Documented By: Admin: 05/24/24 07:48 Dose: 30 mg Documented By: Admin: 05/23/24 07:58 Dose: 30 mg Documented By: Admin: 05/22/24 08:39 Dose: 30 mg Documented By: Admin: 05/21/24 07:56 Dose: 30 mg Documented By: Admin: 05/20/24 08:38 Dose: 30 mg Documented By: JAY Ferrous Gluconate (Ferrous Gluconate 324 Mg Tab) 324 mg PO BID [facility]IANA Stop: 06/19/24 08:59 Last Admin: 05/25/24 09:35 Dose: 324 mg Documented By: Admin: 05/24/24 19:53 Dose: 324 mg Documented By: Admin: 05/24/24 07:46 Dose: 324 mg Documented By: Admin: 05/23/24 20:41 Dose: 324 mg Documented By: Admin: 05/23/24 07:58 Dose: 324 mg Documented By: Admin: 05/22/24 21:28 Dose: 324 mg Documented By: Admin: 05/22/24 08:39 Dose: 324 mg Documented By: Admin: 05/21/24 21:32 Dose: 324 mg Documented By: Admin: 05/21/24 07:55 Dose: 324 mg Documented By: Admin: 05/20/24 20:40 Dose: 324 mg Documented By: Admin: 05/20/24 08:38 Dose: 324 mg Documented By: JAY Finasteride (Finasteride 5 Mg Tab) 5 mg PO QAM ELIANA Stop: 06/19/24 08:59 Last Admin: 05/25/24 09:36 Dose: 5 mg Documented By: Admin: 05/24/24 07:47 Dose: 5 mg Documented By: Admin: 05/23/24 07:59 Dose: 5 mg Documented By: Admin: 05/22/24 08:38 Dose: 5 mg Documented By: Admin: 05/21/24 07:57 Dose: 5 mg Documented By: Admin: 05/20/24 10:03 Dose: 5 mg Documented By: JAY Folic Acid (Folic Acid 1 Mg Tab) 1 mg PO DAILY [facility]IANA Stop: 06/19/24 08:59 Last Admin: 05/25/24 09:36 Dose: 1 mg Documented By: Admin: 05/24/24 07:47 Dose: 1 mg Documented By: Admin: 05/23/24 07:58 Dose: 1 mg Documented By: Admin: 05/22/24 08:39 Dose: 1 mg Documented By: Admin: 05/21/24 07:56 Dose: 1 mg Documented By: Admin: 05/20/24 08:38 Dose: 1 mg Documented By: JAY Levothyroxine Sodium (Levothyroxine Sodium 75 Mcg Tablet) 75 mcg PO DAILYBB ELIANA Stop: 06/19/24 07:14 Last Admin: 05/25/24 06:00 Dose: 75 mcg Documented By: Admin: 05/24/24 06:14 Dose: 75 mcg Documented By: Admin: 05/23/24 06:23 Dose: 75 mcg Documented By: Admin: 05/22/24 06:17 Dose: 75 mcg Documented By: Admin: 05/21/24 06:31 Dose: 75 mcg Documented By: Admin: 05/20/24 08:38 Dose: 75 mcg Documented By: JAY Multivitamins (Multivitamin Tab) 1 tab PO DAILY ELIANA Stop: 06/19/24 08:59 Last Admin: 05/25/24 09:36 Dose: 1 tab Documented By: Admin: 05/24/24 07:47 Dose: 1 tab Documented By: Admin: 05/23/24 07:59 Dose: 1 tab Documented By: Admin: 05/22/24 08:39 Dose: 1 tab Documented By: Admin: 05/21/24 07:57 Dose: 1 tab Documented By: Admin: 05/20/24 10:03 Dose: 1 tab Documented By: JAY Pantoprazole Sodium (Pantoprazole 40 Mg Tab) 40 mg PO DAILY [facility] Stop: 06/19/24 08:59 Last Admin: 05/25/24 09:36 Dose: 40 mg Documented By: Admin: 05/24/24 07:47 Dose: 40 mg Documented By: Admin: 05/23/24 07:59 Dose: 40 mg Documented By: Admin: 05/22/24 08:38 Dose: 40 mg Documented By: Admin: 05/21/24 07:56 Dose: 40 mg Documented By: Admin: 05/20/24 10:03 Dose: 40 mg Documented By: JAY Petrolatum (Butt Paste (Zinc Oxide 16%) 171 Appln/57 Gm Jar) 1 appln TOP QS [facility] Stop: 06/19/24 15:59 Last Admin: 05/25/24 09:22 Dose: 1 appln Documented By: Admin: 05/25/24 01:42 Dose: Not Given Documented By: Admin: 05/24/24 15:24 Dose: 1 appln Documented By: Admin: 05/24/24 07:45 Dose: 1 appln Documented By: Admin: 05/24/24 04:19 Dose: 1 appln Documented By: Admin: 05/23/24 07:59 Dose: 1 appln Documented By: Admin: 05/23/24 07:06 Dose: 1 appln Documented By: Admin: 05/23/24 01:09 Dose: 1 appln Documented By: Admin: 05/22/24 15:01 Dose: 1 appln Documented By: Admin: 05/22/24 07:45 Dose: 1 appln Documented By: Admin: 05/22/24 01:47 Dose: 1 appln Documented By: Admin: 05/21/24 15:38 Dose: 1 appln Documented By: Admin: 05/21/24 07:57 Dose: 1 appln Documented By: Admin: 05/21/24 02:20 Dose: 1 appln Documented By: Admin: 05/20/24 15:37 Dose: 1 appln Documented By: JAY Potassium Chloride (Potassium Chloride Crtab 20 Meq Tabcr) 20 meq PO DAILY [facility]IANA Stop: 06/19/24 08:59 Last Admin: 05/25/24 09:35 Dose: 20 meq Documented By: Admin: 05/24/24 07:51 Dose: 20 meq Documented By: Admin: 05/23/24 07:57 Dose: 20 meq Documented By: Admin: 05/22/24 08:40 Dose: 20 meq Documented By: Admin: 05/21/24 07:59 Dose: 20 meq Documented By: Admin: 05/20/24 08:38 Dose: 20 meq Documented By: JAY Psyllium Hydrophilic Mucilloid (Psyllium Or Guar Gum Fiber 4gm Packet) 4 gm PO BID [facility] Stop: 06/19/24 08:59 Last Admin: 05/25/24 09:22 Dose: 4 gm Documented By: Admin: 05/24/24 19:53 Dose: 4 gm Documented By: Admin: 05/24/24 07:48 Dose: 4 gm Documented By: Admin: 05/23/24 20:40 Dose: 4 gm Documented By: Admin: 05/23/24 07:56 Dose: 4 gm Documented By: Admin: 05/22/24 21:28 Dose: 4 gm Documented By: Admin: 05/22/24 08:37 Dose: 4 gm Documented By: Admin: 05/21/24 21:31 Dose: 4 gm Documented By: Admin: 05/21/24 07:55 Dose: 4 gm Documented By: Admin: 05/20/24 20:40 Dose: 4 gm Documented By: Admin: 05/20/24 08:39 Dose: 4 gm Documented By: JAY Tamsulosin HCl (Tamsulosin Hcl 0.4 Mg Cap) 0.4 mg PO HS ELIANA Stop: 06/19/24 20:59 Last Admin: 05/24/24 19:51 Dose: 0.4 mg Documented By: Admin: 05/23/24 20:40 Dose: 0.4 mg Documented By: Admin: 05/22/24 21:27 Dose: 0.4 mg Documented By: Admin: 05/21/24 21:33 Dose: 0.4 mg Documented By: Admin: 05/20/24 20:40 Dose: 0.4 mg Documented By: KO Discontinued Medications Hydralazine HCl (Hydralazine Hcl 20 Mg/Ml Vial) 5 mg IV NOW ONE Stop: 05/24/24 23:28 Last Admin: 05/24/24 23:45 Dose: 5 mg Documented By: ALDO Ceftriaxone Sodium (Rocephin) 2,000 mg in 50 mls @ 100 mls/hr IV NOW STA Stop: 05/20/24 03:08 Last Infusion: 05/20/24 03:40 Dose: Infused Documented By: Admin: 05/20/24 03:00 Dose: 100 mls/hr Documented By: TIMO Doxycycline Hyclate 100 mg/ (Dextrose) 100 mls @ 50 mls/hr IV NOW STA Stop: 05/20/24 04:38 Last Infusion: 05/20/24 08:35 Dose: Infused Documented By: Admin: 05/20/24 04:03 Dose: 50 mls/hr Documented By: DONNA Sodium Chloride (Nss) 1,000 mls @ 80 mls/hr IV .[id number] ELIANA Stop: 05/21/24 07:41 Last Infusion: 05/20/24 17:39 Dose: Infused Documented By: Admin: 05/20/24 08:41 Dose: 80 mls/hr Documented By: JAY Cefepime HCl 2,000 mg/ Syringe 20 mls @ 5 mls/min IV Q12H ELIANA; Protocol Stop: 05/22/24 13:59 Last Admin: 05/22/24 01:46 Dose: 5 mls/min Documented By: Admin: 05/21/24 13:08 Dose: 5 mls/min Documented By: Admin: 05/21/24 02:21 Dose: 5 mls/min Documented By: Admin: 05/20/24 15:36 Dose: 5 mls/min Documented By: JAY Ceftriaxone Sodium (Rocephin) 2,000 mg in 50 mls @ 100 mls/hr IV Q24H ELIANA Stop: 05/25/24 07:29 Last Infusion: 05/24/24 07:14 Dose: Infused Documented By: Admin: 05/24/24 06:32 Dose: 100 mls/hr Documented By: Infusion: 05/23/24 07:36 Dose: Infused Documented By: Admin: 05/23/24 07:06 Dose: 100 mls/hr Documented By: Infusion: 05/22/24 08:15 Dose: Infused Documented By: Admin: 05/22/24 07:45 Dose: 100 mls/hr Documented By: FROILAN Petrolatum (Butt Paste (Zinc Oxide 16%) 171 Appln/57 Gm Jar) 1 appln TOP QS ELIANA Stop: 06/19/24 07:59 Last Admin: 05/20/24 08:36 Dose: 1 appln Documented By: JAY
[2024-05-25] MEDS: DICLOFENAC SOD 1% GEL 100 GM TUBE EXT SCH (16:51)
[2024-05-26 07:12] LABS: Hematocrit (blood only) 34.9 % (42.0-52.0); Hemoglobin 11.6 g/dl (14.0-18.0); Mean Corpuscular Hemoglobin 28.9 pg (25.0-34.0); Mean Corpuscular Hgb Conc 33.2 g/dL (32.0-36.0); Mean Corpuscular Volume 86.8 fL (80.0-100.0); Mean Platelet Volume 10.7 fL (9.4-12.4); Platelet Count 181 K/uL (130-400); RDW Coefficient of Variation 14.1 % (11.5-14.5); RDW Standard Deviation 45.3 fL (36.4-46.3); Red Blood Count 4.02 M/uL (4.70-6.10); White Blood Count 9.49 K/ul (4.8-10.8)
[2024-05-26 07:32] LABS: BUN Creatinine Ratio 22.6 (10-20); C Reactive Protein 12.57 mg/dl (0-0.5); Calcium 8.7 mg/dl (8.6-10.3); Creatinine Clr Calc Pharmacy 36.3 ml/min; Est GFR (African American) 35.1 ml/min; Est GFR (Non-African American) 30.3 ml/min; Magnesium 2.2 mg/dl (1.7-2.4); Phosphorus 3.5 mg/dl (2.5-4.9); Potassium 4.1 mmol/L (3.5-5.1); Uric Acid 7.3 mg/dl (2.6-7.2)
--- NOTE | 2024-05-26 11:06 | Hospitalist Progress Note ---
<Statement entered by Stanley Zamora, DO - 05/26/24 13:35> I have seen and examined the patient and have discussed the case with the provider above. I have reviewed the advanced practitioner's documentation, and I agree with, and take responsibility for that plan of care. 12 minutes spent at bedside. Patient does admit that right wrist is tender. Confusion waxes and wanes but overall improved. Right wrist warm and tender. Reviewed diagnostic Discussed plan of care as outlined below Date of Service May 26, 2024 Assessment & Plan (1) Brain bleed: Plan Mr. Demarco is an 84y/o M who is a resident of [facility] with PMHx significant for hyperlipidemia, hypothyroidism, obstructive sleep apnea non- tolerant of CPAP, CVA, atrial fibrillation, abdominal aortic aneurysm, paroxysmal atrial tachycardia, chronic systolic CHF, hypertension, CKD stage III, BPH, Epperson's esophagus, alcoholic cirrhosis of liver, history of acute emphysematous cholecystitis, obesity, gout, osteoporosis, vascular dementia and depression who was admitted for monitoring of an intraventricular bleed. Repeat imaging has remained stable. UA revealed concerns for infection with GNB. Urine culture grew E. coli -- transitioned to CTX for narrowed coverage [comple lilia ABX course]. No major changes to management today. Patient started on oral prednisone therapy today (05/26) 2/2 concern for an acute gout flare. Intraventricular Hemorrhage s/p Mechanical Fall & Right Frontal Scalp Hematoma History of Lacunar Infarcts & Vascular Dementia Healing bruise on the right forehead region. Admitting head CT revealed an asymmetric intraventricular hemorrhage involving the right temporal horn. No definite intraparenchymal hemorrhagic changes noted. No significant mass effect or midline shift. Repeat head CT on 05/21 showed an unchanged right lateral intraventricular hemorrhage. Another repeat head CT on 05/24 demonstrated that the right medial temporal lobe/interventricular hemorrhage has resolved. Supportive care, ASA/Plavix discontinued. Can continue statin therapy. PT/OT evaluations recommending acute rehab placement at time of discharge. Acute Cystitis - RESOLVED UA with GNB --> E. coli, pansensitive. Patient was on empiric ceftriaxone & doxycycline then transitioned to cefepime on 05/20. He was then deescalated to ceftriaxone on 05/22 and a completed 3-day course of ceftriaxone on 05/25. Right UE Swelling, History of Gout C/F Acute Gout Flare Patient w/ R hand swelling starting on 05/25. R wrist XR on 05/25 w/ some soft tissue swelling but no fx. RUE venous doppler negative for DVT on 05/25. Will continue w/ warm compresses and topical Voltaren gel. ESR 39, CRP 12.57 and uric acid elevated slightly at 7.3 today. Will initiate oral prednisone therapy, 30mg once daily - starting 05/26. Need to taper gradually as tolerated over the next week or so (~7-10 days). 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 HTN Continue on Coreg, will hold on aggressive bp control. 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 Sleep Apnea: Non-tolerant of CPAP. Paroxysmal Atrial Fibrillation On Coreg - continue. Discontinued aspirin and Plavix. Chronic Systolic and Diastolic CHF On Coreg - continue. Monitor closely for volume overload. Echo EF = 40-45% when he was admitted to [facility] for sepsis secondary to UTI and emphysematous cystitis as per cardiology notes. GERD & Epperson's Esophagus: On Protonix - continue. History of Alcoholic Cirrhosis: Will continue to monitor for volume overload. BPH: On Flomax and finasteride - continue. CKD Stage III Baseline creatinine 2.1-2.3, remains stable. Continue to monitor renal fx, avoid nephrotoxic agents when able. DVT Prophylaxis: SCDs Code Status: DNR/DNI - No Resuscitation PCP: Ranjit Baird DO Disposition: Admitted in Med/Surg + Telemetry - patient to require SNF placement upon discharge. * [facility] cannot offer the patient a bed because the family would like him to be placed at a SNF that is within his network for medical assistance. CM spoke with [facility] and no beds are available. Patient's daughter requested that a referral be placed to [facility]. Referral to [facility] was made by CM - will need prior auth if patient is accepted [waiting to hear back]. CM requesting permission from the patient's daughter to make referrals to additional facilities - namely [facility], [place] and [place]. Patient seen in collaboration with Dr. Zamora. Please see addendum. I spent a total of 30 minutes coordinating, documenting, and providing care for this patient excluding time spent in the performance of separately billed services. This included personally reviewing all current laboratories and imaging studies, medical reconciliation, outpatient chart review and discussion with specialists. This chart was completed in part utilizing Speech Voice Recognition Software. Grammatical errors, random word insertions, pronoun errors, and incomplete sentences are an occasional consequence of this system due to software limitations, ambient noise, and hardware issues. Any formal questions or concerns about the content, text, or information contained within the body of this dictation should be directly addressed to the provider for clarification. Admission and Anticipated Discharge Date Admission Date: May 20, 2024 Subjective Patient seen and examined at bedside in room W354-2. Patient was sitting up and interacting with OT when I entered the room. He is certainly more conversational this morning in comparison to yesterday. He is complaining of right hand pain still - ongoing since yesterday. Denies any SOB, chest pain or abdominal pain. Review of Systems Review of Systems: At least ten systems reviewed and negative, except as noted in the HPI. Physical Exam Physical Exam: General: WD/WN, vitals as above, NAD, sitting up at edge of bed with OT, more conversational this morning. A+O to self only. HEENT: Bruising noted on upper right aspect of forehead, PERRL, conjunctivae normal, anicteric sclerae, oropharynx normal. Respiratory: Normal respiratory effort, lungs clear to auscultation, no wheeze, rales, rhonchi. No accessory muscle use. Cardiovascular: Regular rate, rhythm, no murmur, normal peripheral pulses, no BLE edema. Vessels: No JVD. Abdomen/GI: Normal bowel sounds, soft, nontender, no hepatosplenomegaly. Extremities/Musculoskeletal: No cyanosis or clubbing, R hand w/ some swelling and overlying erythema but not warm to touch. Neurologic: EOMI, accommodation nl, no face palsy, no dysarthria. Results & Data Results & Data Vital Signs (Past 12 Hours) Vital Signs Temp Pulse Resp BP Pulse Ox O2 Del Method 05/26/24 08:15 36.1 C L 68 16 122/72 96 Room Air Laboratory Results Short CBC 05/25/24 05/26/24 Range/Units 12:07 06:54 WBC 9.77 9.49 (4.8-10.8) K/ul Hgb 12.3 L 11.6 L (14.0-18.0) g/dl Hct 36.1 L 34.9 L (42.0-52.0) % Plt Count 181 181 (130-400) K/uL BMP 05/26/24 06:54 Sodium 140 Potassium 4.1 Chloride 107 Carbon Dioxide 28 BUN 44 H Creatinine 1.95 H Glucose 141 H Calcium 8.7 Diagnostic Findings Cervical Spine CT 05/20/24 00:50 Exam(s): CT C SPINE EXAM: CT Cervical Spine Without Intravenous Contrast CLINICAL HISTORY: Trauma. TECHNIQUE: Axial computed tomography images of the cervical spine without intravenous contrast. CTDI is 26.76 mGy and DLP is 538.88 mGy-cm. Automated exposure control was utilized for the study. A dose lowering technique was utilized adhering to the principles of ALARA. COMPARISON: No relevant prior studies available. FINDINGS: Vertebrae: The cervical vertebral bodies are intact without acute traumatic injury. Incidental chronic anterior wedging at C5 level. Partial ankylosis of the C3-C4 disc is noted. The pedicles, facet joints, spinous processes and transverse processes are intact. Multilevel bilateral facet hypertrophic arthrosis is chronic in appearance. Discs/spinal canal/neural foramina: Incidental bilateral facet ankylosis noted at C3-C4. Multilevel disc space narrowing with marginal hypertrophic osteophyte changes noted at several levels. No severe osseous central canal stenosis. Soft tissues: Unremarkable. Lung apices: The included lung apices demonstrate no evidence for significant acute traumatic injury. IMPRESSION: No acute osseous traumatic injury or significant abnormal alignment involving the cervical spine. Electronically signed by: Wilbert Prather MD 05/20/24 01:[address] 05/20/24 00:50 CR Exam(s): CT HEAD Without Contrast EXAM: CT Head Without Intravenous Contrast CLINICAL HISTORY: trauma. TECHNIQUE: Axial computed tomography images of the head/brain without intravenous contrast. CTDI is 38.99 mGy and DLP is 624.41 mGy-cm. Automated exposure control was utilized for the study. A dose lowering technique was utilized adhering to the principles of ALARA. COMPARISON: CT head without contrast dated 03/20/2021 FINDINGS: Brain: Underlying parenchymal involutional changes with prominence of the cerebral sulci and sylvian fissures. Periventricular deep white matter hypodense changes noted. No hemorrhage. Ventricles: Asymmetric intraventricular hemorrhage is noted involving the right temporal horn. No definite intraparenchymal hemorrhagic changes noted. No significant mass effect. No midline shift or ventriculomegaly. Bones/joints: No skull fracture. Soft tissues: Mild superficial scalp contusive changes overlie the right high frontal region. No radiopaque foreign body. No subcutaneous emphysema. Vasculature: Atherosclerotic calcification involving the cavernous and supraclinoid internal carotid arteries. Minimal atherosclerotic calcification involving the distal vertebral arteries. Sinuses: No traumatic effusions involving the paranasal sinuses. Mastoid air cells: Unremarkable as visualized. No mastoid effusion. IMPRESSION: Asymmetric intraventricular hemorrhage is noted involving the right temporal horn. No definite intraparenchymal hemorrhagic changes noted. No significant mass effect or midline shift. Recommend short-term interval follow-up to ensure stability over time. Communications: Call Doctor Intracranial Hemorrhage Electronically signed by: Wilbert Prather MD 05/20/24 01:54 AM Chest X-Ray 05/20/24 01:09 XR chest 1V portable HISTORY: 84 years-old Male Trauma, pneumonia acute chest trauma. COMPARISON: Chest CT of same day, chest radiograph 04/22/2023. TECHNIQUE: AP view of the chest FINDINGS: Cardiac silhouette is enlarged. Atherosclerosis of the aorta. Trace pleural effusions. Mild right hemidiaphragmatic elevation with subsegmental bibasilar densities. Degenerative changes of the shoulders and spine. No acute displaced rib fracture identified. Healing subacute fracture of the posterior medial right 12th rib seen by CT, not visualized by radiography. IMPRESSION: 1. Cardiomegaly without overt pulmonary edema. 2. Trace pleural effusions with mild bibasilar atelectasis. 3. Unchanged right hemidiaphragmatic elevation. ACT 112: Negative or not required by law. The above report was generated using voice recognition software. It may contain grammatical, syntax or spelling errors. Electronically signed by: Nelson Michaels M.D. 05/20/2024 8:[address] 05/20/24 07:30 CT chest diagnostic wo con CT DOSE: 2172.96 mGy.cm CLINICAL HISTORY: 84 years-old Male with infiltrates?. Acute shortness of danica ath TECHNIQUE: Multiaxial CT images of the chest were performed without contrast. A dose lowering technique was utilized adhering to the principles of ALARA. COMPARISON: Chest radiograph of same day, CTA chest 10/26/2013, CT abdomen and pelvis 03/20/2021 FINDINGS: No thyroid nodule or lymphadenopathy identified. Cardiomegaly with small pericardial effusion. Extensive urinary artery calcifications. Atherosclerosis of the aorta without aneurysm. Trace pleural effusions. Respiratory motion artifact and upper extremity positioning limits this study. Mild intralobular septal thickening with subsegmental patchy bibasilar consolidation. Calcified granuloma of the basal left lower lobe. There are no suspicious pulmonary nodules or masses. Chronic right hemidiaphragmatic elevation. Central airways are patent. Gynecomastia. No acute upper abdominal abnormality. Healing subacute nondisplaced fracture of the posterior medial right 12th rib. No acute displaced fracture identified. Degenerative changes of the shoulders and spine. IMPRESSION: 1. Cardiomegaly with mild interstitial pulmonary edema and trace pleural effusions. 2. Mild bibasilar atelectasis. 3. Healing subacute nondisplaced 12th rib fracture. 4. Small pericardial effusion. ACT 112: Negative or not required by law. Electronically signed by: Nelson Mihcaels M.D. 05/20/2024 9:[address] 05/20/24 07:[address] DOSE: HISTORY: Follow-up intracranial hemorrhage. TECHNIQUE: Multiaxial CT images of the head were performed without the use of intravenous contrast. Automated exposure control was utilized for this study. A dose lowering technique was utilized adhering to the principles of ALARA. Comparison: Head CT 05/20/2024. Findings: The paranasal sinuses and mastoid air cells are clear. The calvarium and skull base are intact. There is right frontal scalp swelling. Motion artifact results in suboptimal evaluation of the brain. Mild to moderate a trophic changes most pronounced within the cerebellum again noted. There is no midline shift or acute infarct. There are old lacunar infarcts within the basal ganglia again noted. Microvascular ischemic changes are present. Slight increase in size within the intraventricular hemorrhage located within the temporal and occipital horns of the right lateral ventricle. Impression: Slight increase in size within the intraventricular hemorrhage located within the temporal and occipital horns of the right lateral ventricle. ACT 112: Negative or not required by law. Electronically signed by: Merrick Boykin M.D. 05/20/2024 9:[address] 05/21/24 07:43 CT head/brain wo con CLINICAL HISTORY: 84 years-old Male with follow up ICH stability. Acute head t rauma TECHNIQUE: Multiple axial CT images of the head were obtained without contrast. A dose lowering technique was utilized adhering to the principles of ALARA. CT DOSE: 1499.97 mGy.cm COMPARISON: 05/20/2024 FINDINGS: The paranasal sinuses and mastoid air cells are clear. The calvarium and skull base are intact. There is right frontal scalp swelling. Motion artifact results in suboptimal evaluation of the brain. Mild to moderate atrophic changes most pronounced within the cerebellum again noted. There is no midline shift or acute infarct. There are old lacunar infarcts within the basal ganglia again noted. Microvascular ischemic changes are present. Stable intraventricular hemorrhage located within the temporal and occipital horns of the right lateral ventricle. IMPRESSION: Unchanged right lateral intraventricular hemorrhage. ACT 112: Negative or not required by law. The above report was generated using voice recognition software. It may contain grammatical, syntax or spelling errors. Electronically signed by: Nelson Michaels M.D. 05/21/2024 10:[address] 05/24/24 22:11 Exam(s): CT HEAD Without Contrast EXAM: CT Head Without Intravenous Contrast CLINICAL HISTORY: Reason for exam: recent brain bleed. AMS. TECHNIQUE: Axial computed tomography images of the head/brain without intravenous contrast. CTDI is 38 mGy and DLP is 624 mGy-cm. Automated exposure control was utilized for the study. A dose lowering technique was utilized adhering to the principles of ALARA. Moderate motion artifact, in spite of repeat scanning. COMPARISON: Head CT 05/21/24. FINDINGS: Brain: Right medial temporal lobe/interventricular hemorrhage has resolved. No new hemorrhage. Mild atrophy and chronic white matter disease. Limited evaluation of the posterior fossa due to motion artifact. Ventricles: No hydrocephalus or midline shift. Bones/joints: No obvious skull fracture. Soft tissues: No scalp hematoma. Visualized Sinuses: Clear. Mastoid air cells: No mastoid effusion. IMPRESSION: 1. Right medial temporal lobe/interventricular hemorrhage has resolved. 2. No hydrocephalus, acute infarct, bleed, or acute intracranial abnormality. 3. Moderate motion artifact. Electronically signed by: Trinidad Willson M.D. 05/25/24 00:27 AM Venous Doppler Study 05/25/24 01:27 Exam(s): US VENOUS RIGHT UPPER EXTREMITY EXAM: US Duplex Right Upper Extremity Veins CLINICAL HISTORY: Reason for exam: right upper extremity edema. dvt?. TECHNIQUE: Real-time duplex ultrasound scan of the right upper extremity veins integrating B-mode two-dimensional vascular structure, Doppler spectral analysis, color flow Doppler imaging and compression. COMPARISON: No relevant prior studies available. FINDINGS: Deep veins: Unremarkable. No DVT in the internal jugular, subclavian, axillary, or brachial veins. The veins demonstrate normal color flow, are normally compressible, with normal phasic flow and/or augmentation response. Superficial veins: Unremarkable. No thrombus in the visualized basilic and cephalic veins. Soft tissues: No acute findings. IMPRESSION: 1. No DVT. Electronically signed by: Trinidad Willson M.D. 05/25/24 03:11 AM Wrist X-Ray 05/25/24 09:20 RIGHT WRIST 4 VIEWS CLINICAL HISTORY: Right wrist pain and swelling. FINDINGS: 4 views of the right wrist are obtained. No prior studies are available for comparison at the time of dictation. The skeletal structures are osteopenic. No fracture is seen. Mild osteoarthritic change is noted throughout the wrist. Soft tissue edema is noted throughout the wrist and hand. There is advanced atherosclerotic calcification of the regional arteries. IMPRESSION: Soft tissue swelling with no acute bony abnormality identified. Electronically signed by: Otf Villegas M.D. 05/25/2024 10:24 AM Medications Administered Allopurinol (Allopurinol 100 Mg Tab) 50 mg PO DAILY ELIANA Stop: 06/19/24 08:59 Last Admin: 05/26/24 09:35 Dose: 50 mg Documented By: Admin: 05/25/24 09:35 Dose: 50 mg Documented By: Admin: 05/24/24 07:46 Dose: 50 mg Documented By: Admin: 05/23/24 07:59 Dose: 50 mg Documented By: Admin: 05/22/24 08:38 Dose: 50 mg Documented By: Admin: 05/21/24 07:56 Dose: 50 mg Documented By: Admin: 05/20/24 08:36 Dose: 50 mg Documented By: JAY Atorvastatin Calcium (Atorvastatin 40 Mg Tab) 40 mg PO QPM ELIANA Stop: 06/19/24 20:59 Last Admin: 05/25/24 21:39 Dose: 40 mg Documented By: Admin: 05/24/24 19:52 Dose: 40 mg Documented By: Admin: 05/23/24 20:40 Dose: 40 mg Documented By: Admin: 05/22/24 21:28 Dose: 40 mg Documented By: Admin: 05/21/24 21:33 Dose: 40 mg Documented By: Admin: 05/20/24 20:41 Dose: 40 mg Documented By: KO Carvedilol (Carvedilol 25 Mg Tab) 25 mg PO BID [facility] Stop: 06/19/24 08:59 Last Admin: 05/26/24 09:35 Dose: 25 mg Documented By: Admin: 05/25/24 21:39 Dose: 25 mg Documented By: Admin: 05/25/24 09:35 Dose: 25 mg Documented By: Admin: 05/24/24 19:52 Dose: 25 mg Documented By: Admin: 05/24/24 07:48 Dose: 25 mg Documented By: Admin: 05/23/24 20:40 Dose: 25 mg Documented By: Admin: 05/23/24 07:58 Dose: 25 mg Documented By: Admin: 05/22/24 21:28 Dose: 25 mg Documented By: Admin: 05/22/24 08:38 Dose: 25 mg Documented By: Admin: 05/21/24 21:32 Dose: 25 mg Documented By: Admin: 05/21/24 07:55 Dose: 25 mg Documented By: Admin: 05/20/24 20:41 Dose: 25 mg Documented By: Admin: 05/20/24 08:38 Dose: 25 mg Documented By: JAY Diclofenac Sodium (Diclofenac Sod 1% Gel 100 Gm Tube) 2 gm EXT Q8H [facility]; Protocol Stop: 06/24/24 15:59 Last Admin: 05/26/24 09:33 Dose: 2 gm Documented By: Admin: 05/26/24 00:04 Dose: 2 gm Documented By: Admin: 05/25/24 16:51 Dose: 2 gm Documented By: DORIS Duloxetine HCl (Duloxetine Hcl 30 Mg Cap) 30 mg PO QAM [facility] Stop: 06/19/24 08:59 Last Admin: 05/26/24 09:35 Dose: 30 mg Documented By: Admin: 05/25/24 09:36 Dose: 30 mg Documented By: Admin: 05/24/24 07:48 Dose: 30 mg Documented By: Admin: 05/23/24 07:58 Dose: 30 mg Documented By: Admin: 05/22/24 08:39 Dose: 30 mg Documented By: Admin: 05/21/24 07:56 Dose: 30 mg Documented By: Admin: 05/20/24 08:38 Dose: 30 mg Documented By: JAY Ferrous Gluconate (Ferrous Gluconate 324 Mg Tab) 324 mg PO BID [facility]IANA Stop: 06/19/24 08:59 Last Admin: 05/26/24 09:35 Dose: 324 mg Documented By: Admin: 05/25/24 22:44 Dose: Not Given Documented By: Admin: 05/25/24 09:35 Dose: 324 mg Documented By: Admin: 05/24/24 19:53 Dose: 324 mg Documented By: Admin: 05/24/24 07:46 Dose: 324 mg Documented By: Admin: 05/23/24 20:41 Dose: 324 mg Documented By: Admin: 05/23/24 07:58 Dose: 324 mg Documented By: Admin: 05/22/24 21:28 Dose: 324 mg Documented By: Admin: 05/22/24 08:39 Dose: 324 mg Documented By: Admin: 05/21/24 21:32 Dose: 324 mg Documented By: Admin: 05/21/24 07:55 Dose: 324 mg Documented By: Admin: 05/20/24 20:40 Dose: 324 mg Documented By: Admin: 05/20/24 08:38 Dose: 324 mg Documented By: JAY Finasteride (Finasteride 5 Mg Tab) 5 mg PO QAM [facility] Stop: 06/19/24 08:59 Last Admin: 05/26/24 09:35 Dose: 5 mg Documented By: Admin: 05/25/24 09:36 Dose: 5 mg Documented By: Admin: 05/24/24 07:47 Dose: 5 mg Documented By: Admin: 05/23/24 07:59 Dose: 5 mg Documented By: Admin: 05/22/24 08:38 Dose: 5 mg Documented By: Admin: 05/21/24 07:57 Dose: 5 mg Documented By: Admin: 05/20/24 10:03 Dose: 5 mg Documented By: JAY Folic Acid (Folic Acid 1 Mg Tab) 1 mg PO DAILY [facility]IANA Stop: 06/19/24 08:59 Last Admin: 05/26/24 09:35 Dose: 1 mg Documented By: Admin: 05/25/24 09:36 Dose: 1 mg Documented By: Admin: 05/24/24 07:47 Dose: 1 mg Documented By: Admin: 05/23/24 07:58 Dose: 1 mg Documented By: Admin: 05/22/24 08:39 Dose: 1 mg Documented By: Admin: 05/21/24 07:56 Dose: 1 mg Documented By: Admin: 05/20/24 08:38 Dose: 1 mg Documented By: JAY Levothyroxine Sodium (Levothyroxine Sodium 75 Mcg Tablet) 75 mcg PO DAILYBB [facility] Stop: 06/19/24 07:14 Last Admin: 05/26/24 06:06 Dose: 75 mcg Documented By: Admin: 05/25/24 06:00 Dose: 75 mcg Documented By: Admin: 05/24/24 06:14 Dose: 75 mcg Documented By: Admin: 05/23/24 06:23 Dose: 75 mcg Documented By: Admin: 05/22/24 06:17 Dose: 75 mcg Documented By: Admin: 05/21/24 06:31 Dose: 75 mcg Documented By: Admin: 05/20/24 08:38 Dose: 75 mcg Documented By: JAY Multivitamins (Multivitamin Tab) 1 tab PO DAILY [facility]IANA Stop: 06/19/24 08:59 Last Admin: 05/26/24 09:35 Dose: 1 tab Documented By: Admin: 05/25/24 09:36 Dose: 1 tab Documented By: Admin: 05/24/24 07:47 Dose: 1 tab Documented By: Admin: 05/23/24 07:59 Dose: 1 tab Documented By: Admin: 05/22/24 08:39 Dose: 1 tab Documented By: Admin: 05/21/24 07:57 Dose: 1 tab Documented By: Admin: 05/20/24 10:03 Dose: 1 tab Documented By: JAY Pantoprazole Sodium (Pantoprazole 40 Mg Tab) 40 mg PO DAILY [facility]IANA Stop: 06/19/24 08:59 Last Admin: 05/26/24 09:35 Dose: 40 mg Documented By: Admin: 05/25/24 09:36 Dose: 40 mg Documented By: Admin: 05/24/24 07:47 Dose: 40 mg Documented By: Admin: 05/23/24 07:59 Dose: 40 mg Documented By: Admin: 05/22/24 08:38 Dose: 40 mg Documented By: Admin: 05/21/24 07:56 Dose: 40 mg Documented By: Admin: 05/20/24 10:03 Dose: 40 mg Documented By: JAY Petrolatum (Butt Paste (Zinc Oxide 16%) 171 Appln/57 Gm Jar) 1 appln TOP [facility] Stop: 06/19/24 15:59 Last Admin: 05/26/24 09:34 Dose: 1 appln Documented By: Admin: 05/26/24 00:04 Dose: 1 appln Documented By: Admin: 05/25/24 17:09 Dose: 1 appln Documented By: Admin: 05/25/24 09:22 Dose: 1 appln Documented By: Admin: 05/25/24 01:42 Dose: Not Given Documented By: Admin: 05/24/24 15:24 Dose: 1 appln Documented By: Admin: 05/24/24 07:45 Dose: 1 appln Documented By: Admin: 05/24/24 04:19 Dose: 1 appln Documented By: Admin: 05/23/24 07:59 Dose: 1 appln Documented By: Admin: 05/23/24 07:06 Dose: 1 appln Documented By: Admin: 05/23/24 01:09 Dose: 1 appln Documented By: Admin: 05/22/24 15:01 Dose: 1 appln Documented By: Admin: 05/22/24 07:45 Dose: 1 appln Documented By: Admin: 05/22/24 01:47 Dose: 1 appln Documented By: Admin: 05/21/24 15:38 Dose: 1 appln Documented By: Admin: 05/21/24 07:57 Dose: 1 appln Documented By: Admin: 05/21/24 02:20 Dose: 1 appln Documented By: Admin: 05/20/24 15:37 Dose: 1 appln Documented By: MES Potassium Chloride (Potassium Chloride Crtab 20 Meq Tabcr) 20 meq PO DAILY ELIANA Stop: 06/19/24 08:59 Last Admin: 05/26/24 09:34 Dose: 20 meq Documented By: Admin: 05/25/24 09:35 Dose: 20 meq Documented By: Admin: 05/24/24 07:51 Dose: 20 meq Documented By: Admin: 05/23/24 07:57 Dose: 20 meq Documented By: Admin: 05/22/24 08:40 Dose: 20 meq Documented By: Admin: 05/21/24 07:59 Dose: 20 meq Documented By: Admin: 05/20/24 08:38 Dose: 20 meq Documented By: JAY Psyllium Hydrophilic Mucilloid (Psyllium Or Guar Gum Fiber 4gm Packet) 4 gm PO BID ELIANA Stop: 06/19/24 08:59 Last Admin: 05/26/24 09:31 Dose: Not Given Documented By: Admin: 05/25/24 21:49 Dose: Not Given Documented By: Admin: 05/25/24 09:22 Dose: 4 gm Documented By: Admin: 05/24/24 19:53 Dose: 4 gm Documented By: Admin: 05/24/24 07:48 Dose: 4 gm Documented By: Admin: 05/23/24 20:40 Dose: 4 gm Documented By: Admin: 05/23/24 07:56 Dose: 4 gm Documented By: Admin: 05/22/24 21:28 Dose: 4 gm Documented By: Admin: 05/22/24 08:37 Dose: 4 gm Documented By: Admin: 05/21/24 21:31 Dose: 4 gm Documented By: Admin: 05/21/24 07:55 Dose: 4 gm Documented By: Admin: 05/20/24 20:40 Dose: 4 gm Documented By: Admin: 05/20/24 08:39 Dose: 4 gm Documented By: JAY Tamsulosin HCl (Tamsulosin Hcl 0.4 Mg Cap) 0.4 mg PO HS ELIANA Stop: 06/19/24 20:59 Last Admin: 05/25/24 21:39 Dose: 0.4 mg Documented By: Admin: 05/24/24 19:51 Dose: 0.4 mg Documented By: Admin: 05/23/24 20:40 Dose: 0.4 mg Documented By: Admin: 05/22/24 21:27 Dose: 0.4 mg Documented By: Admin: 05/21/24 21:33 Dose: 0.4 mg Documented By: Admin: 05/20/24 20:40 Dose: 0.4 mg Documented By: KO Discontinued Medications Hydralazine HCl (Hydralazine Hcl 20 Mg/Ml Vial) 5 mg IV NOW ONE Stop: 05/24/24 23:28 Last Admin: 05/24/24 23:45 Dose: 5 mg Documented By: ALDO Ceftriaxone Sodium (Rocephin) 2,000 mg in 50 mls @ 100 mls/hr IV NOW STA Stop: 05/20/24 03:08 Last Infusion: 05/20/24 03:40 Dose: Infused Documented By: Admin: 05/20/24 03:00 Dose: 100 mls/hr Documented By: TIMO Doxycycline Hyclate 100 mg/ (Dextrose) 100 mls @ 50 mls/hr IV NOW STA Stop: 05/20/24 04:38 Last Infusion: 05/20/24 08:35 Dose: Infused Documented By: Admin: 05/20/24 04:03 Dose: 50 mls/hr Documented By: DONNA Sodium Chloride (Nss) 1,000 mls @ 80 mls/hr IV .[id number] [facility] Stop: 05/21/24 07:41 Last Infusion: 05/20/24 17:39 Dose: Infused Documented By: Admin: 05/20/24 08:41 Dose: 80 mls/hr Documented By: JAY Cefepime HCl 2,000 mg/ Syringe 20 mls @ 5 mls/min IV Q12H [facility]; Protocol Stop: 05/22/24 13:59 Last Admin: 05/22/24 01:46 Dose: 5 mls/min Documented By: Admin: 05/21/24 13:08 Dose: 5 mls/min Documented By: Admin: 05/21/24 02:21 Dose: 5 mls/min Documented By: Admin: 05/20/24 15:36 Dose: 5 mls/min Documented By: JAY Ceftriaxone Sodium (Rocephin) 2,000 mg in 50 mls @ 100 mls/hr IV Q24H [facility] Stop: 05/25/24 07:29 Last Infusion: 05/24/24 07:14 Dose: Infused Documented By: Admin: 05/24/24 06:32 Dose: 100 mls/hr Documented By: Infusion: 05/23/24 07:36 Dose: Infused Documented By: Admin: 05/23/24 07:06 Dose: 100 mls/hr Documented By: Infusion: 05/22/24 08:15 Dose: Infused Documented By: Admin: 05/22/24 07:45 Dose: 100 mls/hr Documented By: FROILAN Petrolatum (Butt Paste (Zinc Oxide 16%) 171 Appln/57 Gm Jar) 1 appln TOP QS [facility] Stop: 06/19/24 07:59 Last Admin: 05/20/24 08:36 Dose: 1 appln Documented By: JAY
[2024-05-26] MEDS: predniSONE 10 MG TABLET PO SCH (15:16)
[2024-05-27 07:18] LABS: Hematocrit (blood only) 32.9 % (42.0-52.0); Mean Corpuscular Hemoglobin 28.3 pg (25.0-34.0); Mean Corpuscular Hgb Conc 33.4 g/dL (32.0-36.0); Mean Corpuscular Volume 84.6 fL (80.0-100.0); Platelet Count 218 K/uL (130-400); RDW Coefficient of Variation 13.8 % (11.5-14.5); RDW Standard Deviation 42.3 fL (36.4-46.3); Red Blood Count 3.89 M/uL (4.70-6.10); White Blood Count 9.78 K/ul (4.8-10.8)
[2024-05-27 07:51] LABS: BUN Creatinine Ratio 25.5 (10-20); Calcium 8.6 mg/dl (8.6-10.3); Creatinine Clr Calc Pharmacy 37.5 ml/min; Est GFR (African American) 36.7 ml/min; Est GFR (Non-African American) 31.6 ml/min; Magnesium 2.2 mg/dl (1.7-2.4); Phosphorus 3.5 mg/dl (2.5-4.9); Potassium 4.8 mmol/L (3.5-5.1)
--- NOTE | 2024-05-27 08:31 | Hospitalist Progress Note ---
<Statement entered by Stanley Zamora, - 05/27/24 14:45> I have seen and examined the patient and have discussed the case with the provider above. I have reviewed the advanced practitioner's documentation, and I agree with, and take responsibility for that plan of care. 9 minutes spent at bedside. Appears to be at his baseline mental status. Right wrist significantly less tender, less inflamed Plan of care as outlined below Date of Service May 27, 2024 Assessment & Plan (1) Brain bleed: Plan Mr. Demarco is an 84y/o M who is a resident of [facility] with PMHx significant for hyperlipidemia, hypothyroidism, obstructive sleep apnea non- tolerant of CPAP, CVA, atrial fibrillation, abdominal aortic aneurysm, paroxysmal atrial tachycardia, chronic systolic CHF, hypertension, CKD stage III, BPH, Epperson's esophagus, alcoholic cirrhosis of liver, history of acute emphysematous cholecystitis, obesity, gout, osteoporosis, vascular dementia and depression who was admitted for monitoring of an intraventricular bleed. Repeat imaging has remained stable. UA revealed concerns for infection with GNB. Urine culture grew E. coli -- completed ABX course 05/27: No major changes to management today. Patient started on oral prednisone therapy on 05/26 2/ concern for an acute gout flare. Seems to have improved today; will need taper upon discharge pt daughter is an RN on nightshift on 3rd floor here; no bed available for [facility] for [facility]; case management discussed looking into [place] options including [facility] [place] [facility] [place]daughter will consider Continue working with PT/Ot while awaiting placement Intraventricular Hemorrhage s/p Mechanical Fall & Right Frontal Scalp Hematoma History of Lacunar Infarcts & Vascular Dementia Healing bruise on the right forehead region. Admitting head CT revealed an asymmetric intraventricular hemorrhage involving the right temporal horn. No definite intraparenchymal hemorrhagic changes noted. No significant mass effect or midline shift. Repeat head CT on 05/24 demonstrated that the right medial temporal lobe/interventricular hemorrhage has resolved. Supportive care, ASA/Plavix discontinued. Can continue statin therapy. PT/OT evaluations recommending acute rehab placement at time of discharge. Right UE Swelling, History of Gout C/F Acute Gout Flare Patient w/ R hand swelling starting on 05/25. R wrist XR on 05/25 w/ some soft tissue swelling but no fx. RUE venous doppler negative for DVT on 05/25. warm compresses and topical Voltaren gel. ESR 39, CRP 12.57 and uric acid elevated slightly at 7.3 on 05/26 Prednisone 30mg once daily started on 05/26. Need to taper gradually as tolerated over the next week or so (~7-10 days). 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 Acute Cystitis - RESOLVED UA with GNB --> E. coli, pansensitive. Patient was on empiric ceftriaxone & doxycycline then transitioned to cefepime on 05/20. 3-day course of ceftriaxone completed on 05/25. HTN Continue on Coreg, will hold on aggressive bp control. 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 Sleep Apnea: Non-tolerant of CPAP. Paroxysmal Atrial Fibrillation On Coreg - continue. Discontinued aspirin and Plavix. Chronic Systolic and Diastolic CHF On Coreg - continue. Monitor closely for volume overload. Echo EF = 40-45% when he was admitted to [facility] for sepsis secondary to UTI and emphysematous cystitis as per cardiology notes. GERD & Epperson's Esophagus: On Protonix - continue. History of Alcoholic Cirrhosis: Will continue to monitor for volume overload. BPH: On Flomax and finasteride - continue. CKD Stage III Baseline creatinine 2.1-2.3, remains stable. Continue to monitor renal fx, avoid nephrotoxic agents when able. Disposition: DVT Prophylaxis: SCDs Code Status: DNR/DNI PCP: Ranjit Baird DO Currently admitted to Med/Surg/was downgraded on 05/26 - patient to require SNF placement upon discharge. Patient seen in collaboration with Dr. Zamora. Please see addendum. I spent a total of 36 minutes coordinating, documenting, and providing care for this patient excluding time spent in the performance of separately billed services. This included personally reviewing all current laboratories and imaging studies, medical reconciliation, outpatient chart review and discussion with specialists. This chart was completed in part utilizing Speech Voice Recognition Software. Grammatical errors, random word insertions, pronoun errors, and incomplete sentences are an occasional consequence of this system due to software limitations, ambient noise, and hardware issues. Any formal questions or con cerns about the content, text, or information contained within the body of this dictation should be directly addressed to the provider for clarification. Admission and Anticipated Discharge Date Admission Date: May 20, 2024 Subjective Patient seen and examined at bedside and he was in no apparent distress. He is AAOx2; needed clarification that he was in a hospital. Pt denies Bullock, dizziness, chest pain, SOB, swelling, or other concerns. See A/P for further details Review of Systems Review of Systems: Neuro: (-) Falls, trauma, slurred speech HEENT: (-) BULLOCK, dizziness, dysphagia, visual or auditory changes CV: (-) CP, palpitations, swelling Resp: (-) SOB GI: (-) appetite changes, N/V/D, bowel changes : (-) urinary changes Skin: (-) rashes Psych: (-) anxiety, depression Physical Exam Physical Exam: Neuro: AAOx4, PERRLA, no aphagia, memory changes, CNII-XII grossly intact HEENT: head normocephalic, moist mucus membranes CV: S1/S2, (-) M/G/R, (-) edema, cap refill < 3 seconds Resp: Lungs CTA in all brewster. On RA GI: Abdomen S/NT/ND, Ax4 bowel sounds, (-) CVA tenderness Musculoskeletal: 5/5 B/L UE strength, 5/5 B/L LE strength. No gait disturbance Skin: (-) rashes , (-) erythema. Psych: euthymic mood Results & Data Results & Data Vital Signs (Past 12 Hours) Vital Signs Temp Pulse Pulse Resp BP BP Pulse Ox 05/27/24 07:54 36.3 C L 69 16 147/85 H 97 05/26/24 20:31 36.2 C L 60 14 177/94 H 95 O2 Del Method 05/27/24 07:54 Room Air 05/26/24 20:31 Room Air Laboratory Results Short CBC 05/27/24 Range/Units 06:27 WBC 9.78 (4.8-10.8) K/ul Hgb 11.0 L (14.0-18.0) g/dl Hct 32.9 L (42.0-52.0) % Plt Count 218 (130-400) K/uL BMP 05/27/24 06:27 Sodium 135 L Potassium 4.8 Chloride 104 Carbon Dioxide 25 BUN 48 H Creatinine 1.88 H Glucose 222 H Calcium 8.6
[2024-05-28 07:51] LABS: Hematocrit (blood only) 33.8 % (42.0-52.0); Hemoglobin 11.1 g/dl (14.0-18.0); Mean Corpuscular Hemoglobin 28.4 pg (25.0-34.0); Mean Corpuscular Hgb Conc 32.8 g/dL (32.0-36.0); Mean Corpuscular Volume 86.4 fL (80.0-100.0); Mean Platelet Volume 10.5 fL (9.4-12.4); Platelet Count 264 K/uL (130-400); RDW Coefficient of Variation 13.9 % (11.5-14.5); RDW Standard Deviation 43.5 fL (36.4-46.3); Red Blood Count 3.91 M/uL (4.70-6.10); White Blood Count 10.78 K/ul (4.8-10.8)
[2024-05-28 08:10] LABS: BUN Creatinine Ratio 26.2 (10-20); Calcium 8.5 mg/dl (8.6-10.3); Creatinine Clr Calc Pharmacy 32.8 ml/min; Est GFR (African American) 30.1 ml/min; Potassium 4.7 mmol/L (3.5-5.1)
--- NOTE | 2024-05-28 08:24 | Hospitalist Progress Note ---
<Statement entered by Stanley Zamora DO - 05/28/24 12:48> I have seen and examined the patient and have discussed the case with the provider above. I have reviewed the advanced practitioner's documentation, and I agree with, and take responsibility for that plan of care. 6 minutes spent bedside. Patient reports wrist is significantly improved Wrist swelling, redness, tenderness significantly improved Plan of care as outlined below Date of Service May 28, 2024 Assessment & Plan (1) Brain bleed: Plan Mr. Demarco is an 84y/o M who is a resident of [facility] with PMHx significant for hyperlipidemia, hypothyroidism, obstructive sleep apnea non- tolerant of CPAP, CVA, atrial fibrillation, abdominal aortic aneurysm, paroxysmal atrial tachycardia, chronic systolic CHF, hypertension, CKD stage III, BPH, Epperson's esophagus, alcoholic cirrhosis of liver, history of acute emphysematous cholecystitis, obesity, gout, osteoporosis, vascular dementia and depression who was admitted for monitoring of an intraventricular bleed. Repeat imaging has remained stable. UA revealed concerns for infection with GNB. Urine culture grew E. coli -- completed ABX course 05/27: No major changes to management today. Patient started on oral prednisone therapy on 05/26 2 concern for an acute gout flare. Seems to have improved today; will need taper upon discharge pt daughter is an RN on nightshift on 3rd floor here; no bed available for [facility] for [facility]; case management discussed looking into [place] options including [facility], [facility] and [place]daughter will consider Continue working with PT/Ot while awaiting placement 05/28: No major changes to his management today. Wrist swelling seems to be improving. Tolerating his diet well. Continue PO prednisone 30 mg PO x5 days with completion date on Wednesday 05/30 Pati is reviewing medical records for possible approval; daughter stated requesting [facility] be revisited. See CM notes. Continue working with PT/OT while awaiting placement. Intraventricular Hemorrhage s/p Mechanical Fall & Right Frontal Scalp Hematoma History of Lacunar Infarcts & Vascular Dementia Healing bruise on the right forehead region. Admitting head CT revealed an asymmetric intraventricular hemorrhage involving the right temporal horn. No definite intraparenchymal hemorrhagic changes noted. No significant mass effect or midline shift. Repeat head CT on 05/24 demonstrated that the right medial temporal lobe/interventricular hemorrhage has resolved. Supportive care, ASA/Plavix discontinued. Can continue statin therapy. PT/OT evaluations recommending acute rehab placement at time of discharge. Right UE Swelling, History of Gout C/F Acute Gout Flare Patient w/ R hand swelling starting on 05/25. R wrist XR on 05/25 some soft tissue swelling, (-) for fracture RUE venous doppler negative for DVT on 05/25. warm compresses and topical Voltaren gel. ESR 39, CRP 12.57 and uric acid elevated slightly at 7.3 on 05/26 Prednisone 30mg once daily started on 05/26; complete on 05/30. 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 Acute Cystitis - RESOLVED UA with GNB --> E. coli, pansensitive. Patient was on empiric ceftriaxone & doxycycline then transitioned to cefepime on 05/20. 3-day course of ceftriaxone completed on 05/25. HTN Continue on Coreg, will hold on aggressive bp control. Hypothyroidism: On Synthroid HEEL SEATER - continue. Sleep Apnea: Non-tolerant of CPAP. Paroxysmal Atrial Fibrillation On Coreg - continue. Discontinued aspirin and Plavix. Chronic Systolic and Diastolic CHF On Coreg - continue. Monitor closely for volume overload. Echo EF = 40-45% when he was admitted to [facility] for sepsis secondary to UTI and emphysematous cystitis as per cardiology notes. GERD & Epperson's Esophagus: On Protonix - continue. History of Alcoholic Cirrhosis: Will continue to monitor for volume overload. BPH: On Flomax and finasteride - continue. CKD Stage III Baseline creatinine 2.1-2.3, remains stable. Continue to monitor renal fx, avoid nephrotoxic agents when able. Disposition: DVT Prophylaxis: SCDs Code Status: DNR/DNI PCP: Ranjit Baird DO Currently admitted to Med/Surg/was downgraded on 05/26 - patient to require SNF placement upon discharge. I spent a total of 34 minutes coordinating, documenting, and providing care for this patient excluding time spent in the performance of separately billed services. This included personally reviewing all current laboratories and imaging studies, medical reconciliation, outpatient chart review and discussion with specialists. This chart was completed in part utilizing Speech Voice Recognition Software. Grammatical errors, random word insertions, pronoun errors, and incomplete sentences are an occasional consequence of this system due to software limitations, ambient noise, and hardware issues. Any formal questions or concerns about the content, text, or information contained within the body of this dictation should be directly addressed to the provider for clarification. Admission and Anticipated Discharge Date Admission Date: May 20, 2024 Subjective Patient seen and examined at bedside and he was in no apparent distress. He is AAOx2; seemed more interactive today Wrist swelling improving Pt denies Bullock, dizziness, chest pain, SOB, swelling, or other concerns. Disposition remains either [place] (under review); daughter requesting possible [place] as well. See A/P for further details Review of Systems Review of Systems: Neuro: (-) Falls, trauma, slurred speech HEENT: (-) BULLOCK, dizziness, dysphagia, visual or auditory changes CV: (-) CP, palpitations, swelling Resp: (-) SOB GI: (-) appetite changes, N/V/D, bowel changes : (-) urinary changes Skin: (-) rashes Psych: (-) anxiety, depression Physical Exam Physical Exam: Neuro: AAOx4, PERRLA, no aphagia, memory changes, CNII-XII grossly intact HEENT: head normocephalic, moist mucus membranes CV: S1/S2, (-) M/G/R, (-) edema, cap refill < 3 seconds Resp: Lungs CTA in all brewster. On RA GI: Abdomen S/NT/ND, Ax4 bowel sounds, (-) CVA tenderness Musculoskeletal: 5/5 B/L UE strength, 5/5 B/L LE strength. No gait disturbance Skin: (-) rashes , (-) erythema. Psych: euthymic mood Results & Data Results & Data Vital Signs (Past 12 Hours) Vital Signs Temp Pulse Resp BP Pulse Ox O2 Del Method 05/27/24 20:55 Room Air 05/27/24 20:43 36.4 C L 62 16 112/73 97 Room Air Laboratory Results Short CBC 05/28/24 Range/Units 07:25 WBC 10.78 (4.8-10.8) K/ul Hgb 11.1 L (14.0-18.0) g/dl Hct 33.8 L (42.0-52.0) % Plt Count 264 (130-400) K/uL BMP 05/28/24 07:25 Sodium 136 Potassium 4.7 Chloride 104 Carbon Dioxide 25 BUN 58 H Creatinine 2.21 H D Glucose 153 H Calcium 8.5 L
--- NOTE | 2024-05-29 10:45 | Hospitalist Progress Note ---
Date of Service May 29, 2024 Assessment & Plan (1) Vascular dementia: (2) Physical deconditioning: (3) Gouty arthritis of right hand: (4) Closed intraventricular hemorrhage: (5) Closed head injury: (6) COPD (chronic obstructive pulmonary disease): (7) UTI (urinary tract infection): Plan: Resolved (8) CKD (chronic kidney disease): Plan Patient initially admitted with the fall, closed head trauma and intraventricular hemorrhage versus's resolved. Is also been treated for urinary tract infection. Patient's gouty arthritis of the right wrist is significantly improved, can discontinue steroids Continue therapies Continue to pursue placement for rehabilitation Admission and Anticipated Discharge Date Admission Date: May 20, 2024 Subjective No acute events overnight. Physical Exam Physical Exam: Constitutional: Alert HEENT: Mucous membranes moist. Lungs: Clear to auscultation, decreased, no wheezes rales or rhonchi CV: S1-S2, regular Abdomen: Soft, nontender, nondistended Extremities: No significant edema, right wrist significantly improved Neuro: No focal deficits, dementia Psych: Cooperative, normal mood Results & Data Results & Data Vital Signs (Past 12 Hours) Vital Signs Temp Pulse Resp BP Pulse Ox O2 Del Method 05/29/24 07:33 36.6 C 69 16 138/88 94 Room Air
--- NOTE | 2024-05-30 08:55 | Hospitalist Progress Note ---
Date of Service May 30, 2024 Assessment & Plan (1) Vascular dementia: (2) Physical deconditioning: (3) Gouty arthritis of right hand: (4) Closed intraventricular hemorrhage: (5) Closed head injury: (6) COPD (chronic obstructive pulmonary disease): (7) UTI (urinary tract infection): Plan: Resolved (8) CKD (chronic kidney disease): Plan Continue with current medical care Continue therapies Case management to continue to pursue placement options Check BMP in a.m. Admission and Anticipated Discharge Date Admission Date: May 20, 2024 Subjective Patient sleepy this morning. No acute issues overnight reported by nursing Physical Exam Physical Exam: Constitutional: Drowsy but does awaken HEENT: Mucous membranes moist. Lungs: Clear to auscultation, decreased, no wheezes rales or rhonchi CV: S1-S2, regular Abdomen: Soft, nontender, nondistended Extremities: No significant edema Neuro: Generalized weakness Psych: Dementia Results & Data Results & Data Vital Signs (Past 12 Hours) Vital Signs Temp Pulse Resp BP Pulse Ox O2 Del Method 05/30/24 07:51 36.4 C L 58 L 20 144/84 H 96 Room Air
[2024-05-31 07:51] LABS: Calcium 8.3 mg/dl (8.6-10.3); Creatinine Clr Calc Pharmacy 36.4 ml/min; Est GFR (Non-African American) 29.3 ml/min
--- NOTE | 2024-05-31 11:29 | Hospitalist Progress Note ---
<Statement entered by Stanley Zamora DO - 05/31/24 12:40> I have seen and examined the patient and have discussed the case with the provider above. I have reviewed the advanced practitioner's documentation, and I agree with, and take responsibility for that plan of care. Patient reports he had a good night. No acute issues overnight. Continue current care Continue to pursue placement As below Date of Service May 31, 2024 Assessment & Plan (1) Brain bleed: Plan Mr. Demarco is an 84y/o M who is a resident of [facility] with PMHx significant for hyperlipidemia, hypothyroidism, obstructive sleep apnea non- tolerant of CPAP, CVA, atrial fibrillation, abdominal aortic aneurysm, paroxysmal atrial tachycardia, chronic systolic CHF, hypertension, CKD stage III, BPH, Epperson's esophagus, alcoholic cirrhosis of liver, history of acute emphysematous cholecystitis, obesity, gout, osteoporosis, vascular dementia and depression who was admitted for monitoring of an intraventricular bleed. 05/31: No major changes to management today. Patient was working w/ OT when I entered the room. 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 Patient reports significant improvement in the mobility of his R hand, currently denies any pain. Patient is accepted at [facility] on authorization. He can continue working with PT/OT while awaiting placement. Intraventricular Hemorrhage s/p Mechanical Fall & Right Frontal Scalp Hematoma History of Lacunar Infarcts & Vascular Dementia Healing bruise on the right forehead region. Admitting head CT revealed an asymmetric intraventricular hemorrhage involving the right temporal horn. No definite intraparenchymal hemorrhagic changes noted. No significant mass effect or midline shift. Repeat head CT on 05/21 showed an unchanged right lateral intraventricular hemorrhage. Another repeat head CT on 05/24 demonstrated that the right medial temporal lobe/interventricular hemorrhage has resolved. Repeat imaging has remained stable. Supportive care, ASA/Plavix discontinued. Can continue statin therapy. PT/OT evaluations recommending acute rehab placement at time of discharge. Acute Cystitis - RESOLVED UA with GNB --> E. coli, pansensitive. Patient was on empiric ceftriaxone & doxycycline then transitioned to cefepime on 05/20. He was then deescalated to ceftriaxone on 05/22 and a completed 3-day course of ceftriaxone on 05/25. HTN Continue on Coreg, will hold on aggressive BP control. 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 Sleep Apnea: Non-tolerant of CPAP. Paroxysmal Atrial Fibrillation On Coreg - continue. Discontinued aspirin and Plavix. Chronic Systolic and Diastolic CHF On Coreg - continue. Monitor closely for volume overload. Echo EF = 40-45% when he was admitted to [facility] for sepsis secondary to UTI and emphysematous cystitis as per cardiology notes. GERD & Epperson's Esophagus: On Protonix - continue. History of Alcoholic Cirrhosis: Will continue to monitor for volume overload. BPH: On Flomax and finasteride - continue. CKD Stage III Baseline creatinine 2.1-2.3, remains stable. Continue to monitor renal fx, avoid nephrotoxic agents when able. DVT Prophylaxis: SCDs Code Status: DNR/DNI - No Resuscitation PCP: Ranjit Baird, Disposition: Currently admitted to Med/Surg, was downgraded from Med/Tele on 05/26 - patient to require SNF placement upon discharge. * As of 05/31, patient is accepted at [facility] pending insurance authorization. Daughter is agreeable with the plan per CM. Patient seen in collaboration with Dr. Zamora. Please see addendum. I spent a total of 25 minutes coordinating, documenting, and providing care for this patient excluding time spent in the performance of separately billed services. This included personally reviewing all current laboratories and imaging studies, medical reconciliation, outpatient chart review and discussion with specialists. This chart was completed in part utilizing Speech Voice Recognition Software. Grammatical errors, random word insertions, pronoun errors, and incomplete sentences are an occasional consequence of this system due to software limitations, ambient noise, and hardware issues. Any formal questions or concerns about the content, text, or information contained within the body of this dictation should be directly addressed to the provider for clarification. Admission and Anticipated Discharge Date Admission Date: May 20, 2024 Subjective Patient seen and examined at bedside in room W354-2. Patient was being seen by OT when I entered his room this morning. He is more interactive and conversive. No acute events overnight, patient had no concerns/questions. Right wrist swelling significantly improved. Patient denies any pain or discomfort associated with his right wrist. Review of Systems Review of Systems: At least ten systems reviewed and negative, except as noted in the subjective section. Physical Exam Physical Exam: General: WD/WN, vitals as above, NAD, sitting up in chair at bedside with OT, more conversational this morning, cooperative. HEENT: Healing bruise noted on upper right aspect of forehead, PERRL, conjunctivae normal, anicteric sclerae, oropharynx normal. Respiratory: Normal respiratory effort, lungs clear to auscultation, no wheeze, rales, rhonchi. No accessory muscle use. Cardiovascular: Regular rate, rhythm, no murmur, normal peripheral pulses, no BLE edema. Vessels: No JVD. Abdomen/GI: Normal bowel sounds, soft, nontender, no hepatosplenomegaly. Extremities/Musculoskeletal: No cyanosis or clubbing, right wrist swelling and erythema significantly improved. Neurologic: EOMI, accommodation nl, no face palsy, no dysarthria. Results & Data Results & Data Vital Signs (Past 12 Hours) Vital Signs Temp Pulse Pulse Resp BP BP Pulse Ox 05/31/24 09:34 93 H 20 106/60 94 05/31/24 08:25 36.6 C 55 L 18 146/72 H 95 05/31/24 07:24 36.8 C 60 18 147/83 H 95 O2 Del Method 05/31/24 09:34 Room Air 05/31/24 08:25 Room Air 05/31/24 07:24 Room Air Laboratory Results BMP 05/31/24 07:14 Sodium 138 Potassium 5.0 Chloride 107 Carbon Dioxide 27 BUN 52 H Creatinine 2.00 H Glucose 98 Calcium 8.3 L
[2024-06-01 07:50] LABS: Hematocrit (blood only) 37.4 % (42.0-52.0); Hemoglobin 12.4 g/dl (14.0-18.0); Mean Corpuscular Hemoglobin 28.2 pg (25.0-34.0); Mean Corpuscular Hgb Conc 33.2 g/dL (32.0-36.0); Mean Corpuscular Volume 85.2 fL (80.0-100.0); Mean Platelet Volume 10.1 fL (9.4-12.4); Platelet Count 284 K/uL (130-400); RDW Coefficient of Variation 13.7 % (11.5-14.5); RDW Standard Deviation 42.5 fL (36.4-46.3); Red Blood Count 4.39 M/uL (4.70-6.10); White Blood Count 11.82 K/ul (4.8-10.8)
[2024-06-01 08:24] LABS: Anion Gap 6 (3-11); BUN Creatinine Ratio 24.4 (10-20); Blood Urea Nitrogen 53 mg/dl (6-23); Calcium 8.1 mg/dl (8.6-10.3); Carbon Dioxide 26 mmol/L (21-32); Chloride 105 mmol/L (98-107); Creatinine Clr Calc Pharmacy 33.2 ml/min; Est GFR (African American) 30.8 ml/min; Est GFR (Non-African American) 26.6 ml/min; Glucose 117 mg/dl (70-99(Fasting)); Magnesium 2.3 mg/dl (1.7-2.4); Phosphorus 4.6 mg/dl (2.5-4.9); Sodium 137 mmol/L (136-145)
--- NOTE | 2024-06-01 10:07 | Hospitalist Progress Note ---
<Statement entered by Stanley Zamora, - 06/01/24 11:39> I have seen and examined the patient and have discussed the case with the provider above. I have reviewed the advanced practitioner's documentation, and I agree with, and take responsibility for that plan of care. 7 minutes spent at the bedside. The patient offers no complaints. No acute issues overnight Plan of care as outlined below Date of Service June 01, 2024 Assessment & Plan (1) Brain bleed: Plan Mr. Demarco is an 84y/o M who is a resident of [facility] with PMHx significant for hyperlipidemia, hypothyroidism, obstructive sleep apnea non- tolerant of CPAP, CVA, atrial fibrillation, abdominal aortic aneurysm, paroxysmal atrial tachycardia, chronic systolic CHF, hypertension, CKD stage III, BPH, Epperson's esophagus, alcoholic cirrhosis of liver, history of acute emphysematous cholecystitis, obesity, gout, osteoporosis, vascular dementia and depression who was admitted for monitoring of an intraventricular bleed. 06/01: No major changes to management today. Per CM, patient is accepted at [facility] on authorization. 05/31: No major changes to management today. Patient was working w/ OT when I entered the room. 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 Patient reports significant improvement in the mobility of his R hand, currently denies any pain. Patient is accepted at [facility] on authorization. He can continue working with PT/OT while awaiting placement. Intraventricular Hemorrhage s/p Mechanical Fall & Right Frontal Scalp Hematoma History of Lacunar Infarcts & Vascular Dementia Healing bruise on the right forehead region. Admitting head CT revealed an asymmetric intraventricular hemorrhage involving the right temporal horn. No definite intraparenchymal hemorrhagic changes noted. No significant mass effect or midline shift. Repeat head CT on 05/21 showed an unchanged right lateral intraventricular hemorrhage. Another repeat head CT on 05/24 demonstrated that the right medial temporal lobe/interventricular hemorrhage has resolved. Repeat imaging has remained stable. Supportive care, ASA/Plavix discontinued. Can continue statin therapy. PT/OT evaluations recommending acute rehab placement at time of discharge. Acute Cystitis - RESOLVED UA with GNB --> E. coli, pansensitive. Patient was on empiric ceftriaxone & doxycycline then transitioned to cefepime on 05/20. He was then deescalated to ceftriaxone on 05/22 and a completed 3-day course of ceftriaxone on 05/25. HTN Continue on Coreg, will hold on aggressive BP control. 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 Sleep Apnea: Non-tolerant of CPAP. Paroxysmal Atrial Fibrillation On Coreg - continue. Discontinued aspirin and Plavix. Chronic Systolic and Diastolic CHF On Coreg - continue. Monitor closely for volume overload. Echo EF = 40-45% when he was admitted to [facility] for sepsis secondary to UTI and emphysematous cystitis as per cardiology notes. GERD & Epperson's Esophagus: On Protonix - continue. History of Alcoholic Cirrhosis: Will continue to monitor for volume overload. BPH: On Flomax and finasteride - continue. CKD Stage III Baseline creatinine 2.1-2.3, remains stable. Continue to monitor renal fx, avoid nephrotoxic agents when able. DVT Prophylaxis: SCDs Code Status: DNR/DNI - No Resuscitation PCP: Ranjit Baird, Disposition: Currently admitted to Med/Surg, was downgraded from Med/Tele on 05/26 - patient to require SNF placement upon discharge. * As of 05/31, patient is accepted at [facility] pending insurance authorization. Daughter is agreeable with the plan per CM. Patient seen in collaboration with Dr. Zamora. Please see addendum. I spent a total of 20 minutes coordinating, documenting, and providing care for this patient excluding time spent in the performance of separately billed services. This included personally reviewing all current laboratories and imaging studies, medical reconciliation, outpatient chart review and discussion with specialists. This chart was completed in part utilizing Speech Voice Recognition Software. Grammatical errors, random word insertions, pronoun errors, and incomplete sentences are an occasional consequence of this system due to software limitations, ambient noise, and hardware issues. Any formal questions or concerns about the content, text, or information contained within the body of this dictation should be directly addressed to the provider for clarification. Admission and Anticipated Discharge Date Admission Date: May 20, 2024 Subjective Patient seen and examined at bedside in room W354-2. Patient was eating breakfast when I entered his room this morning. He is interactive and conversive. No acute events overnight, patient had no concerns/questions. Review of Systems Review of Systems: At least ten systems reviewed and negative, except as noted in the subjective section. Physical Exam Physical Exam: General: WD/WN, vitals as above, NAD, eating breakfast without issue, more con versational this morning, cooperative. HEENT: Healing bruise noted on upper right aspect of forehead, PERRL, conjunctivae normal, anicteric sclerae, oropharynx normal. Respiratory: Normal respiratory effort, lungs clear to auscultation, no wheeze, rales, rhonchi. No accessory muscle use. Cardiovascular: Regular rate, rhythm, no murmur, normal peripheral pulses, no BLE edema. Vessels: No JVD. Abdomen/GI: Normal bowel sounds, soft, nontender, no hepatosplenomegaly. Extremities/Musculoskeletal: No cyanosis or clubbing, right wrist swelling and erythema significantly improved. Neurologic: EOMI, accommodation nl, no face palsy, no dysarthria. Results & Data Results & Data Vital Signs (Past 12 Hours) Vital Signs Temp Pulse Resp BP Pulse Ox O2 Del Method 06/01/24 07:38 36.8 C 61 16 114/72 96 Room Air Laboratory Results Short CBC 06/01/24 Range/Units 07:21 WBC 11.82 H (4.8-10.8) K/ul Hgb 12.4 L (14.0-18.0) g/dl Hct 37.4 L (42.0-52.0) % Plt Count 284 (130-400) K/uL BMP 06/01/24 06/01/24 07:21 08:39 Sodium 137 Potassium TNP 4.8 Chloride 105 Carbon Dioxide 26 BUN 53 H Creatinine 2.17 H Glucose 117 H Calcium 8.1 L
[2024-06-01 21:19] VITALS: TEMP 97.5
[2024-06-02 08:06] LABS: Hematocrit (blood only) 36.3 % (42.0-52.0); Hemoglobin 11.9 g/dl (14.0-18.0); Mean Corpuscular Hemoglobin 28.1 pg (25.0-34.0); Mean Corpuscular Hgb Conc 32.8 g/dL (32.0-36.0); Mean Corpuscular Volume 85.8 fL (80.0-100.0); Mean Platelet Volume 10.2 fL (9.4-12.4); Platelet Count 249 K/uL (130-400); RDW Coefficient of Variation 13.7 % (11.5-14.5); RDW Standard Deviation 42.5 fL (36.4-46.3); Red Blood Count 4.23 M/uL (4.70-6.10); White Blood Count 11.58 K/ul (4.8-10.8)
[2024-06-02 08:28] LABS: BUN Creatinine Ratio 25.4 (10-20); Calcium 7.9 mg/dl (8.6-10.3); Creatinine Clr Calc Pharmacy 36.3 ml/min; Est GFR (African American) 33.8 ml/min; Est GFR (Non-African American) 29.2 ml/min; Potassium 4.7 mmol/L (3.5-5.1)
[2024-06-02 09:46] VITALS: BP 132/80; PULSE 76; RESP 18; O2SAT 95
--- NOTE | 2024-06-02 10:23 | Discharge Summary ---
Date of Service June 02, 2024 Admission HPI Per Admitting Provider 84-year-old male who is a resident of the [facility] with past medical history significant for hyperlipidemia, hypothyroidism, obstructive sleep apnea nontolerant of CPAP, CVA, atrial fibrillation, abdominal aortic aneurysm, paroxysmal atrial tachycardia, chronic systolic CHF, hypertension, CKD stage III, BPH, Epperson's esophagus, alcoholic cirrhosis of liver, history of acute emphysematous cholecystitis, obesity, gout, osteoporosis, vascular dementia,, depression, presents with fall and found to have brain bleed. Daughter was called as patient fell around 10 PM. Seems no loss of consciousness. Nursing staff did not saw him falling down. As per daughter recently fell 5 times. Patient ambulates with walker. But his balance is not great as per daughter. As per daughter patient is alert and oriented to name only. Patient can recognize the daughter. Currently on pured diet. Chronically incontinent of stool and bladder movements. No recent fevers. No nausea or vomiting. Patient can tell his name. Does not know where he is. Denies any chest pain or headache. Says he has no pain. Patient had temp spike in the ER. Could not get any history from the patient. Patient was in the hospice in the past but was taken out as per daughter. Patient is DNR/DNI. Daughter does not want him to transfer for brain bleed. If brain bleed gets worse she wants the patient to be comfortable. Daughter works in our hospital on the third floor Past medical history. As mentioned above Past surgical history. Bilateral total knee arthroplasty. Colonoscopy. EGD with biopsy. Knee arthroscopy. Partial right hip replacement. Tonsillectomy and adenoidectomy. Left total hip replacement. Social history. Currently living at [facility]. Smoked an average of 3 packs a day for 5 years. Quit alcohol in 2008. No drug use. Family history. Father age 77 history of CAD. Brother had CABG at age 54. Admission Exam Per Admitting Provider General- Not in distress Head- Bruise seen on right forehead Eyes- PERRL. ENT- oropharynx clear Neck- supple, no JVD. Lungs- clear to auscultation no wheezing or crackles Heart- regular rhythm; no murmur, no gallop. Abdomen- normal bowel sounds, soft, nontender, no distension Extremities- mild pretibial edema, no erythema seen. Neuro- alert, oriented x 1; PERRL, no facial palsy; no dysarthria; motor 5/5 bilaterally; obeys simple commands Principal Diagnosis Brain Bleed Discharge Exam General: WD/WN, vitals as above, NAD, eating breakfast without issue, more conversational this morning, cooperative. HEENT: Healing bruise noted on upper right aspect of forehead, PERRL, conjunctivae normal, anicteric sclerae, oropharynx normal. Respiratory: Normal respiratory effort, lungs clear to auscultation, no wheeze, rales, rhonchi. No accessory muscle use. Cardiovascular: Regular rate, rhythm, no murmur, normal peripheral pulses, no BLE edema. Vessels: No JVD. Abdomen/GI: Normal bowel sounds, soft, nontender, no hepatosplenomegaly. Extremities/Musculoskeletal: No cyanosis or clubbing, right wrist swelling and erythema significantly improved. Neurologic: EOMI, accommodation nl, no face palsy, no dysarthria. Discharge Data Allergies Allergy/AdvReac Type Severity Reaction Status Date / Time No Known Allergies Allergy Unknown Verified 05/20/24 02:23 Consultations 05/20/24 03:13 ED Decision to Admit Stat 05/20/24 08:00 Consult Neurology Routine Ordered Studies 05/20/24 00:50 CT head/brain wo con Stat CT neck [CT cervical spine wo con] Stat 05/20/24 07:30 CT chest diagnostic wo con Routine CT head/brain wo con Urgent 05/21/24 07:43 CT head/brain wo con Routine 05/24/24 22:11 CT head/brain wo con Stat 05/25/24 01:27 US venous doppler UE RT Urgent Hospital Course (1) Brain bleed: Plan Mr. Demarco is an 84y/o M who is a resident of [facility] with PMHx significant for hyperlipidemia, hypothyroidism, obstructive sleep apnea non- tolerant of CPAP, CVA, atrial fibrillation, abdominal aortic aneurysm, paroxysmal atrial tachycardia, chronic systolic CHF, hypertension, CKD stage III, BPH, Epperson's esophagus, alcoholic cirrhosis of liver, history of acute emphysematous cholecystitis, obesity, gout, osteoporosis, vascular dementia and depression who was admitted on 05/20/24 for monitoring of an intraventricular bleed. Intraventricular Hemorrhage s/p Mechanical Fall & Right Frontal Scalp Hematoma History of Lacunar Infarcts & Vascular Dementia Admitting head CT revealed an asymmetric intraventricular hemorrhage involving the right temporal horn. No definite intraparenchymal hemorrhagic changes noted. No significant mass effect or midline shift. Repeat head CT on 05/21 showed an unchanged right lateral intraventricular hemorrhage. Another repeat head CT on 05/24 demonstrated that the right medial temporal lobe/interventricular hemorrhage has resolved. Repeat imaging has remained stable. ASA and Plavix were both discontinued. Can continue statin therapy at time of discharge. Patient can discuss with his PCP as to when he can restart his ASA and Plavix. Acute Cystitis - RESOLVED UA with GNB --> E. coli, pansensitive. Patient was on empiric ceftriaxone & doxycycline then transitioned to cefepime on 05/20. He was then deescalated to ceftriaxone on 05/22 and a completed 3-day course of ceftriaxone on 05/25. Gouty Arthritis of Right Hand - RESOLVED Patient completed a 5-day course of oral prednisone on 05/30 for gouty arthritis of his R hand. Patient with significant improvement in the mobility of his R hand at time of discharge. Hypertension: Continue on Coreg, held off on aggressive BP control throughout his admission. CKD Stage III: Baseline creatinine 2.1-2.3, remained stable throughout his admission. Hypothyroidism: On Synthroid [employer]IDE - continue. Sleep Apnea: Non-tolerant of CPAP. Paroxysmal Atrial Fibrillation: On Coreg - continue at time time of discharge. Discontinued aspirin and Plavix 2/ intraventricular bleed. Chronic Systolic and Diastolic CHF: On Coreg - continue at time of discharge. Echo EF = 40-45% when he was admitted to [facility] for sepsis secondary to UTI and emphysematous cystitis as per cardiology notes. GERD & Epperson's Esophagus: On Protonix - can continue at time of discharge. History of Alcoholic Cirrhosis: No episodes of volume overload throughout his admission. BPH: On Flomax and finasteride - continue both at time of discharge. Code Status: DNR/DNI - No Resuscitation PCP: Ranjit Baird DO Disposition: Patient is being discharged to [facility]. Patient seen in collaboration with Dr. Bear. Please see addendum. I spent a total of 50 minutes coordinating, documenting, and providing care for this patient excluding time spent in the performance of separately billed services. This included personally reviewing all current laboratories and imaging studies, medical reconciliation, outpatient chart review and discussion with specialists. This chart was completed in part utilizing Speech Voice Recognition Software. Grammatical errors, random word insertions, pronoun errors, and incomplete sentences are an occasional consequence of this system due to software limitations, ambient noise, and hardware issues. Any formal questions or concerns about the content, text, or information contained within the body of this dictation should be directly addressed to the provider for clarification. Home Health Attestation I certify that this patient is under my care and that I, or a physicians assistant professor of music working with me, had a face to-face encounter that meets the home health [id number] encounter requirements with this patient. The encounter with the patient was in whole, or in part, for the following medical condition, which is the primary reason for home health care (list medical condition): I certify that, based on my findings, the following services are medically necessary home health services: My clinical findings support the need for the above services because: Further, I certify that my clinical findings support that this patient is homebound (i.e. absences from home require considerable and taxing effort and are for medical reasons or restorationist services or infrequently or of short duration when for other reasons) because: Certification for Home Health Services: Based on the above findings, I certify that this patient is confined to the home and needs intermittent care home care, physical therapy and/or speech therapy or continues to need occupational therapy. The patient is under my care, and I have initiated the establishment of the plan of care. This patient will be followed by a physician who will periodically review the plan of care. Total Time Total Time Spent Total Time Spent (In Minutes): 50 Discharge Plan Discharge Items Patient Disposition: Transfer Assisted Fac Reason For Visit: FALL, BRAIN BLEED Discharge Diagnosis: Brain Bleed Activity: Resume your previous activity Non-emergency contact: Primary Care Provider Call non-emergency contact if: you have any medication questions [facility] [Other] Ranjit Baird DO [Outside Practitioners] - Diet: Heart Healthy Diet Texture: Pureed (blended smooth) Addtl Attending Provider Instructions: Wilber Randolph were admitted to the hospital with a brain bleed after sustaining a fall at [facility]. Repeat heat CT imaging throughout your admission showed complete resolution of the bleed. You were also treated for acute cystitis with a course of IV antibiotic therapy during your hospitalization. Furthermore, you were treated with a 5-day course of oral corticosteroid therapy for an episode of right hand gouty arthritis as well. You are being discharged to [facility] today. Please follow-up with your primary care provider (PCP) within the next week. You will be contacted by your PCP's office to schedule an appointment. MEDICATION CHANGES: * Your aspirin and Plavix were both discontinued during your admission as a result of your acute brain bleed. Please continue to hold off on taking these medications for now until further discussion with your PCP. SEEK MEDICAL ATTENTION IF YOU HAVE: * Temperature above 101. * Chest pain or trouble breathing. * Abdominal pain, nausea, vomiting. * Diarrhea, dark stools or bloody stools. * Any unanswered questions or concerns. Call 911 if symptoms are severe. Please take good care of yourself. It has been a pleasure taking care of you. If you have any questions regarding your recent hospitalization please contact [facility] and request Melba Fordist @ [phone]. Pending Studies at Discharge: No Stand-Alone Forms: My [facility] Skilled Items Patient informed of condition?: Yes DNR: Yes Discharge Level of Care: Skilled Communicable Disease: No Discharge Prognosis: Stable Lines: None Urinary Catheter: No Medications and DC Order Prescriptions: Continued multivitamin Tablet 1 tab PO DAILY atorvastatin 40 mg tablet 40 mg PO QPM carvedilol 25 mg tablet 25 mg PO BID acetaminophen [Tylenol] 325 mg Tablet 650 mg PO Q4 PRN (Reason: Pain) allopurinol 100 mg tablet 50 mg PO DAILY pantoprazole 20 mg tablet,delayed release (DR/EC) 20 mg PO DAILY levothyroxine 75 mcg tablet 75 mcg PO DAILY potassium chloride 20 mEq tablet,ER particles/crystals 20 meq PO DAILY tamsulosin 0.4 mg capsule 0.4 mg PO HS folic acid 1 mg Tablet 1 mg PO DAILY nystatin [Nystop] 100,000 unit/gram Powder 1 applic TOPICAL BID PRN (Reason: fungal rash/prevention) finasteride 5 mg tablet 5 mg PO QAM duloxetine 30 mg capsule,delayed release(DR/EC) 30 mg PO QAM ferrous fumarate 325 mg (106 mg iron) Tablet 325 mg PO BID menthol-zinc oxide [Calmoseptine] 0.44-20.6 % Ointment 1 applic TOPICAL DIRECTED PRN (Reason: .excoriated butt) psyllium husk [Reguloid (psyllium husk)] 0.4 gram Capsule 0.4 g PO BID Desit Maximum Strength 1 applic topical DIRECTED PRN (Reason: .irritation from inc) Desitin Maximum Strength 1 applic topical QS Rx Instructions: Apply to gluteal cleft Held clopidogrel 75 mg tablet 75 mg PO QAM Hold Instructions: Continue to hold for now pending PCP evaluation. aspirin 81 mg Tablet,Chewable 81 mg PO DAILY Hold Instructions: Continue to hold for now pending PCP evaluation. Discharge Orders: Discharge Order (Routine); Ordered 06/02/24 Ordered By: Yancy Mahmood/Other Patient Handouts: Slips Trips Falls Prevention, Prevent Falls Make Health Priority Admission Data Admit Date/Time: 05/20/24 03:46 Attending Provider: Juventino Bear Admit Provider: José Forte Primary Care Provider: Dylon Mary at [place], Other Providers: Feliberto Pierre [facility]; [place]; José Forte; Deepti Mckinley; Wade Darden; Deepti Michelle; Rayray Klein; Todd Bradley; Chau Patel; George Steinberg; Shannan Leone; Robert Roblero; Sherwin Glez; Pauline Baumann; Raj Haas; Vita norris,January; Lovely Fuller[place]ichita; George Sy; Yancy Carreon Other Interventions: Discharge Summary Assessment (RN) Last Done: 06/02/24 12:55 Supervising Physician Co-Signing Physician Notes I have reviewed the advanced practitioner's documentation, and I agree with, and take responsibility for the plan of care I spent a total of 15 minutes coordinating, documenting, and providing care for this patient excluding time spent in the performance of separately billed services. All of the aforementioned completed while collaborating with the assigned advanced practitioner for a full treatment plan
== END 2024-06-02 14:09 | DRG 86 ==
LOC: ED 00:47 → SUATTDRO 03:46 → EDINP 03:46 → 2N 08:16 → 3W 05-24 23:03